=== PATIENT | male | born 1960 | race Caucasian/White ===

== ENCOUNTER 2021-04-26 14:25 | Inpatient (IN) | payer BC, SELFPAY ==
[2021-04-26] VITALS (38 sets, daily range): BP systolic 115–160; BP diastolic 65–97; PULSE 96–131; RESP 19–44; TEMP 36.9–37.7; O2SAT 82–98; BMI 38.2
--- NOTE | 2021-04-26 14:44 | XR_ITS ---
WS: [id number] Portable AP upright chest, 04/26/2021 Clinical Data: resp failure Comparison: None. Findings: Bilateral pulmonary opacities are present consistent with acute pneumonia. No nodules, mass es or effusions are seen. The pulmonary vascularity is probably not increased. The heart is slightly enlarged. Monitor leads are on the chest wall. XR/XR chest 1V portable [id number] Impression: 1. Bilateral pulmonary opacities consistent with acute pneumonia. 2. Cardiomegaly.
--- NOTE | 2021-04-26 14:53 | PM.HP ---
Providers/Chief Complaint Admitting Physician: Burton Renae MD Chief Complaint: icu 8, covid History of Present Illness Isrrael Tejada is a 60 year old male who was transferred from [facility] in [place] for COVID-19 pneumonia. History is somewhat difficult as patient is dyspneic and on BiPAP. From my understanding from the patient as well as historical records he has been ill for approximately 11 days. A Covid test was performed yesterday, and positive. From my understanding the patient was confused this morning upon awakening and was directed to the emergency department by his . At the outside emergency department he received dexamethasone 8 mg IV. I do not see any other treatment that was given other than supportive care/oxygen. Review of Systems General: Reports: ROS unobtainable due to medical condition (Unobtainable currently secondary to severe dyspnea.) Medications/Allergies Allergies Allergy/AdvReac Type Severity Reaction Status Date / Time No Known Drug Allergies Allergy Unknown Verified 04/26/21 14:38 PFSH Acute PFSH: Medical History (Updated 04/26/21 @ 15:23 by Burton Renae MD) Gout Hyperlipidemia Hypertension Hypothyroidism Obesity Surgical History (Updated 04/26/21 @ 15:05 by Burton Renae MD) History of rectal surgery Social History (Updated 04/26/21 @ 15:07 by Burton Renae MD) Smoking and tobacco status: never smoked Alcohol intake: current Alcohol intake frequency: 0-2 Drinks per Day Substance/Drug Use: never Supplemental PFSH Information: Family history not obtainable at this time secondary to the patient's severe dyspnea. Vitals/I&O/Wt Last Vital Signs Pulse 113 H 04/26/21 14:40 Pulse Ox 95 04/26/21 14:40 Weight last 48 hrs Weight 127.913 kg Physical Exam Narrative: EXAM NARRATIVE: General exam demonstrates a dyspneic white male on BiPAP who can answer a few questions but this seems to decrease his oxygen level HEENT: Atraumatic normocephalic. Oropharynx not examined is BiPAP on Neck is supple no lymphadenopathy or thyromegaly Cardiovascular tachycardic, no murmur Lungs scattered rales. No wheezing Abdomen is soft obese nontender with positive bowel sounds was deferred Extremities no cyanosis clubbing or edema, cap refill brisk Skin no rash Neuro no obvious focal deficits Data Other data: ABG at outside hospital demonstrated a pH of 7.419, PCO2 of 28, PO2 of 45 on a 15 L nonrebreather EKG at outside hospital demonstrated sinus tachycardia with a rate of approximately 110, left axis deviation, no significant ST elevation or depression White blood cell count 11.1, hemoglobin 15.6, platelet count 283 INR normal PTT 36.6 CRP elevated at 185 D-dimer slightly elevated at 0.83 Sodium was 135, potassium 3.6, chloride 96, bicarb 17, BUN 24, creatinine 1.6, glucose 179 LFTs within normal limits with the exception of AST of 76. ALT and bilirubin are normal Troponin is 23 with a 2-hour troponin of 24 Chest x-ray at outside institution demonstrated patchy bilateral atelectasis versus infiltrate I have verbally confirmed he has a positive Covid test at [facility] and that is going to be faxed to our institution. A&P Assessment and plan (1) Pneumonia due to COVID-19 virus: Initiate remdesivir Initiate dexamethasone 6 mg IV daily. He is already received 1 dose of 8 mg at outside hospital. Nebulized treatments through close circuit of BiPAP as needed BiPAP, with oxygen to try to maintain saturation over 88% Secondary to his acute worsening over the last 24 hours, markedly elevated inflammatory levels, and 11 days into illness will initiate Actemra. Discussed with pulmonary. N.p.o. for now secondary to severe respiratory compromise Hydration with 50 cc an hour of saline as he is NPO. Try to avoid fluid overload in this patient with high likelihood of ARDS. However, some fluid is needed secondary to his acute kidney injury. Pulmonary consultation secondary to high risk of decompensation requiring intubation Status: Acute (2) Acute respiratory failure with hypoxia: See above Status: Acute (3) Acute kidney injury: Avoid renal toxic medications Start IV fluids at 50 cc an hour Close monitoring of output Hold BRYAN inhibitor patient is on at home Status: Acute (4) Hypertension: Continue Norvasc, metoprolol. Hold BRYAN inhibitor. Status: Acute (5) Hypothyroidism: Check TSH. Continue thyroid hormone. Status: Acute (6) Hyperlipidemia: Continue statin Status: Acute (7) Gout: Continue allopurinol Status: Acute Additional A&P Information Full code Lovenox for DVT prophylaxis Attestations Medical Necessity Statement*: Will need greater than 2 midnight stay for evaluation and treatment of COVID-19 pneumonia. Time Spent in Patient Care: Greater than 35 minutes Critical Care Time: The high probability of a clinically significant, sudden or life threatening deterioration of the patient's [pulmonary, renal] system(s) required my full and direct attention, intervention and personal management. The critical care time is as shown. This time is in addition to time spent performing any reported procedures but includes the following: [x] Data and vital sign review and interpretation [x] Patient assessment, examination and intervention [x] Documentation [x] Medication orders and management Critical Care Time (min): 54 Coding Level of Care Code Acute Financial Recording Clerk for [facility] Fwd Diagnoses Pneumonia due to COVID-19 virus U07.1; J12.82 Acute respiratory failure with hypoxia J96.01 Acute kidney injury N17.9 Hypertension I10 Hypothyroidism E03.9 Hyperlipidemia E78.5 Gout M10.9
[2021-04-26] MEDS: enoxaparin 40 mg/0.4 mL Syringe SUBCUT (16:02)
[2021-04-26] MEDS: sodium chloride 0.9% 1,000 ML 50 ML IV (16:02)
[2021-04-26] MEDS: cefTRIAXone 1,000 MG in sodium chloride 0.9% (plus) 50 ML 100 MG IV (16:02)
[2021-04-26] MEDS: remdesivir 200 MG in sodium chloride 0.9% (100 ml) 100 ML 100 MG IV (16:03)
[2021-04-26] MEDS: ipratropium-albuterol 3 mL Neb INHALATION ×3 (16:53→23:45)
[2021-04-26 17:47] LABS: NT Pro B Type Natriuretic Pept 816 pg/mL (0-125); Procalcitonin 0.59 ng/mL (0-0.5); Thyroid Stimulating Hormone 1.25 uIU/mL (0.27-4.20)
[2021-04-26 17:58] LABS: Magnesium 2.1 mg/dL (1.7-2.3)
--- NOTE | 2021-04-26 19:08 | PC.NURSE ---
Recieved patient as a direct admit from [facility]. Oxygen level was in low 70's upon admission and patient was placed on bipap. Oxygen level quickly returned to mid 90's. A&O x 4. Temperature was 99.8. Medications given per orders.
[2021-04-26 19:16] LABS: Influenza A by IFA Negative (Negative); Influenza B by IFA Negative (Negative)
[2021-04-26 19:30] LABS: Estmated Average Glucose 148; Hemoglobin A1C 6.8 % (4.0-6.0)
[2021-04-26] MEDS: atorvastatin 40 mg Tablet 20 MG PO (21:13)
--- NOTE | 2021-04-26 21:18 | P.CONIM_ITS ---
Providers/Reason For Consult Consulting Physician/Specialty*: Stu Quarles MD/ Pulmonary Critical Care Reason for Consult*: Acute hypoxic respiratory failure secondary to ARDS due to COVID- 19 pneumonia Requesting Physician: Burton Renae MD Attending Physician: Burton Renae MD Primary Care Provider: Leo Smith History of Present Illness History of Present Illness Isrrael Tejada is a 60 year old male with past medical history of hypertension, hyperlipidemia, hypothyroidism, gout, obesity transferred from [facility] in [place] for COVID-19 pneumonia. Patient has been ill for approximately 11 days. A Covid test was performed yesterday, and positive and he was confused this morning upon awakening and was directed to the emergency department by his . Received dexamethasone 8 mg IV at outside hospital and he was transferred. Upon arrival pt has low grade temp 99.8 F, Tachycardic and tachypneic, saturating 92% on BIPAP 18/8 90% FIO2. Pro BNP 816; procalcitonin 0.59 , flu negative, blood cultures sent , chest x ray showed Bilateral pulmonary opacities consistent with acute pneumonia. ABG at outside hospital demonstrated a pH of 7.419, PCO2 of 28, PO2 of 45 on a 15 L nonrebreather. EKG at outside hospital demonstrated sinus tachycardia with a rate of approximately 110, left axis deviation, no significant ST elevation or depression. WBC 11.1, hemoglobin 15.6, platelet count 283; INR normal; PTT 36.6; CRP elevated at 185; D-dimer slightly elevated at 0.83 Sodium was 135, potassium 3.6, chloride 96, bicarb 17, BUN 24, creatinine 1.6, glucose 179; LFTs within normal limits with the exception of AST of 76. ALT and bilirubin are normal. Troponin is 23 with a 2-hour troponin of 24; Chest x-ray at outside institution demonstrated patchy bilateral atelectasis versus infiltrate. Pulmonary critical care consult requested for acute hypoxic respiratory failure secondary to ARDS due to COVID-19 pneumonia requiring 100% FiO2 on BiPAP Patient seen at bedside in ICU -Reported that he did not get time to get vaccinated due to his work schedule -Symptomatic for the last 11 days and tested positive yesterday and became more short of breath and confused today morning -On BiPAP 18/8 FiO2 90% saturating 92% and pulling out tidal volumes close to 1 L with a respiratory rate of 44 -Failed proning/70 proning/high flow oxygen and was immediately desaturating to low 80s -Adjusted BiPAP settings to 12/6 to tidal volumes close to 4 50-500 and started on Precedex to reduce anxiety and decrease while maintaining saturation greater than 90% -Labs and imaging reviewed and pertinent findings incorporated in assessment and plan Review of Systems General: Reports: 10 or more systems reviewed and unremarkable except in HPI and below and ROS unobtainable due to mental status Meds/Allergies Home Medications and Allergies Allergies Allergy/AdvReac Type Severity Reaction Status Date / Time No Known Drug Allergies Allergy Unknown Verified 04/26/21 14:38 Current Medications Current Medications Generic Name Dose Route Start Last Admin Trade Name Freq PRN Reason Stop Dose Admin Albuterol/Ipratropium 3 ml 04/26/21 14:44 04/26/21 20:46 Ipratropium-Albuterol 3 Ml Neb INHALATION 3 ml Q4H PRN Administration SHORTNESS OF BREATH Atorvastatin Calcium 20 mg 04/26/21 21:00 04/26/21 21:13 Atorvastatin 40 Mg Tablet PO 20 mg BEDTIME ROHIT Administration Enoxaparin Sodium 40 mg 04/26/21 16:00 04/26/21 16:02 Enoxaparin 40 Mg/0.4 Ml Syringe SUBCUT 40 mg Q24H ROHIT Administration Sodium Chloride 1,000 mls @ 50 mls/hr 04/26/21 14:45 04/26/21 16:02 Sodium Chloride 0.9% IV 50 mls/hr .Q20H ROHIT Administration Ceftriaxone Sodium 1,000 mg/ 50 mls @ 100 mls/hr 04/26/21 15:00 04/26/21 16 :35 Sodium Chloride IV Infused Q24H ROHIT Infusion Protocol PFSH Acute PFSH: Medical History Gout Hyperlipidemia Hypertension Hypothyroidism Obesity Surgical History History of rectal surgery Social History Smoking and tobacco status: never smoked Alcohol intake: current Alcohol intake frequency: 0-2 Drinks per Day Substance/Drug Use: never Vitals/I&O/Wt Last Vital Signs Temp 98.4 F 04/26/21 20:00 Pulse 103 H 04/26/21 21:05 Resp 32 H 04/26/21 20:59 BP 140/89 04/26/21 20:30 Pulse Ox 96 04/26/21 21:05 04/26/21 04/26/21 04/26/21 06:59 14:59 22:59 Intake Total 250 / 250 Output Total 1225 / 1225 Balance -975 / -975 Weight last 48 hrs Weight 282 lb Physical Exam Narrative: EXAM NARRATIVE: General: alert, in significant risk on BiPAP 10/09 and FiO2 100% HEENT: conj clear, EOMI, PERRL, mmm, Neck: supple, no meningismus Heme: no cervical LAP Pulmonary: Bilateral coarse crackles Cardiovascular: rrr, nl s1s2, no mrg Abdomen: soft, nt, nd, no r/g, bs+ Extremities: pulses +, no edema, no c/c : no CVA tenderness Skin: intact, no rash MSK: no back or neck pain Neurologic: grossly intact Urinary Catheter Management^: Cristina: Cath Placed During This Visit: yes Reason for Continuing Indwelling Catheter: Accurate Measurement of Urinary Output in Critically Ill Patients Urinary Catheter Date of Insertion: 04/26/21 Urinary Catheter Time of Insertion: 17:38 Data Labs: Other Labs: Laboratory Results Estimat Average Gl ucose 148 04/26/21 16:50 Hemoglobin A1c 6.8 % (4.0-6.0) H 04/26/21 16:50 Magnesium 2.1 mg/dL (1.7-2. 3) 04/26/21 16:50 NT-Pro-B Natriuret Pep 816 pg/mL (0-125) H 04/26/21 16:50 Procalcitonin 0.59 ng/mL (0-0.5 ) H 04/26/21 16:50 TSH 1.25 uIU/mL (0.27 -4.20) 04/26/21 16:50 Influenza Type A A g Negative (Negati ve) 04/26/21 17:00 Influenza Type B A g Negative (Negati ve) 04/26/21 17:00 Impressions Chest X-Ray 04/26/21 14:44 Impression: 1. Bilateral pulmonary opacities consistent with acute pneumonia. 2. Cardiomegaly. 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 Qualified Code(s): M1A.9XX0 - Chronic gout, unspecified, without tophus (tophi) (5) Hyperlipidemia: Status: Acute Qualifiers: Hyperlipidemia type: unspecified Qualified Code(s): E78.5 - Hyperlipidemia, unspecified (6) Hypothyroidism: Status: Acute Qualifiers: Hypothyroidism type: unspecified Qualified Code(s): E03.9 - Hypothyroidism, unspecified (7) Hypertension: Status: Acute Qualifiers: Hypertension type: unspecified Qualified Code(s): I10 - Essential (primary) hypertension (8) Acute kidney injury: Status: Acute Overall: 60-year-old male with past medical history of hypertension, hyperlipidemia, hypothyroidism, gout, obesity transferred from outside hospital for acute hypoxic respiratory failure secondary to ARDS due to COVID-19 pneumonia. #Acute hypoxic respiratory failure due to ARDS due to COVID-19 pneumonia #MARC based on labs from outside labs sent BUN/creatinine 24/1.6 - saturating 94% on BiPAP 12/6 FiO2 100% --At high risk for intubation -Patient is hyperventilating with rate 40-started on low-dose Precedex for anxiety and to comply with BiPAP -Did not tolerate high flow oxygen; or proning or semiproning- -temp 99.8F, WBC 11 K, pro-Tristin 0.59, BNP 816, -sent for bacterial antigen, MRSA, Bacterial cultures -started on remdesivir protocol for 5 days on 04/26/21 and dexamethasone 6 mg IV daily -Given 1 dose tocilizumab 04/26/21 -DuoNeb nebulizations every 6 hours and budesonide twice daily -Started on ceftriaxone & azithromycin 04/26/21 -monitor inflammatory markers every 48 hours; CRP 175 D-dimer 0.83 -BUN/creatinine 24/1.6 at outside facility; clinically appeared dehydrated; started NS at 50 mL's per hour; held BRYAN inhibitor his home medication - monitor input and output to keep even to slight net negative -LFTs within normal limits except AST 76-likely due to COVID-19 pneumonia- monitor -On Lipitor 20 p.o. daily for hyperlipidemia-hold if LFTs get worsen -On allopurinol for his gout -On amlodipine 10 mg daily, metoprolol 50 mg daily, for hypertension -On levothyroxine 50 MCG p.o. every morning for hypothyroidism -Sugars well controlled with scale coverage -Pantoprazole 40 mg daily for GI prophylaxis and history of GERD -On prophylactic dose of Lovenox for DVT prophylaxis -N.p.o. due to severe respiratory distress and impending respiratory failure requiring intubation Medical condition and management plan discussed with patient and he verbalized understanding and agreed with the plan. Recommendations conveyed to hospitalist covering the patient Consult Attestations Medical Necessity Statement: Acute hypoxic respiratory failure secondary to Acute respiratory distress syndrome due to COVID-19 pneumonia requiring high FiO2 on BiPAP. Needs close ICU monitoring for impending respiratory failure and possible intubation Time Spent in Patient Care: Greater than 35 minutes (>than 50% of time spent in counselling and/or direct pt care on unit) . Critical Care Time: The high probability of a clinically significant, sudden or life threatening deterioration of the patient's [respiratory] system(s) required my full and direct attention, intervention and personal management. The critical care time is as shown. This time is in addition to time spent performing any reported procedures but includes the following: [x] Data and vital sign review and interpretation [x] Patient assessment, examination and intervention [x] Documentation [x] Medication orders and management Critical Care Time (min): 45 Coding Level of Care Code New Pt Acute Patient Information Coordinator for g Fwd Patient Type New History Comprehensive Exam Comprehensive Medical Decision Making High Complexity Diagnoses Acute respiratory failure with hypoxia J96.01 ARDS (adult respiratory distress syndrome) J80 Pneumonia due to COVID-19 virus U07.1; J12.82 Gout M1A.9XX0 Gout site: unspecified site Gout etiology: unspecified cause 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
[2021-04-26] MEDS: dexmedetomidine 400 MCG in sodium chloride 0.9% (100 ml) 100 ML 9.98 MCG IV (23:37)
[2021-04-27] VITALS (85 sets, daily range): BP systolic 85–136; BP diastolic 54–79; PULSE 58–112; RESP 20–39; TEMP 36.4–36.9; O2SAT 86–98
[2021-04-27 01:34] LABS: ABG PCO2 36.4 mmHg (35-45); ABG PH Result 7.41 (7.35-7.45); Alveolar-Arterial Oxygen Gradi 79.5 mmHg (5-10); Arterial Blood Gas Hematocrit 45.2 % (42-52); Base Excess ABG -1.5 mmol/L (-2.0-2.0); Blood Gas Allen Test Pos; Blood Gas Operator Identificat HARKR; Blood Gas Sample Site Radial, right; Blood Gas Sample Type Arterial; Carboxyhemoglobin 0.4 %THgb (0.4-20.1); HCO3 ABG 22.8 mmol/L (22-26); HGB O2 Sat 87.1 % (95-100); Ionized Calcium Level - ABG 1.2 mmol/L (1.1-1.4); Methemoglobin 0.8 % (0.4-1.5); Oxygen Device BIPAP; Oxygen Saturation ABG 88.2; PO2 ABG 55.7 mmHg (80.0-100.0); Potassium Level - ABG 3.7 mmol/L (3.5-5.0); Total Hemoglobin 14.7 g/dL (14-18)
[2021-04-27] MEDS: ipratropium-albuterol 3 mL Neb INHALATION ×4 (04:50→20:28)
[2021-04-27 05:09] LABS: Basophils % 0.3 %; Hematocrit 42.2 % (42.0-52.0); Hemoglobin 14.1 g/dL (11.7-16.6); Lymphocytes # 1.2 10^3/uL (0.8-4.8); Lymphocytes % 13.1 %; Mean Corpuscular HGB Conc 33.4 g/dL (30.0-36.0); Mean Corpuscular Hemoglobin 28.7 pg (28.0-34.0); Mean Corpuscular Volume 85.8 fL (80-94); Mean Platelet Volume 10.7 fL (7.4-10.4); Monocytes # 0.7 10^3/uL (0.2-0.9); Monocytes % 7.1 %; Neutrophils # 7.16 10^3/uL (1.8-7.7); Nucleated Red Blood Cells % 0 %; Platelet Count 319 10^3/cmm (130-400); Red Blood Count 4.92 10^6/uL (4.1-5.3); Red Cell Distribution Width 13.1 % (12.1-15.1); White Blood Count 9.2 10^3/uL (4.0-10.0)
[2021-04-27 05:24] LABS: Alanine Aminotransferase 28 U/L (0-41); Albumin Level 2.9 g/dL (3.5-5.2); Alkaline Phosphatase 75 IU/L (40-130); Anion Gap 15.2 (5-19); Aspartate Amino Transferase 56 U/L (0-40); Blood Urea Nitrogen 26 mg/dL (6-20); Calcium 8.2 mg/dL (8.5-10.5); Carbon Dioxide 22 mmol/L (22-29); Chloride 105 mmol/L (98-107); Globulin 3.4 g/dL (1.3-4.6); Glomerular Filtration Rate 47.9 mL/min (90-130); Glucose 239 mg/dL (65-115); Magnesium 2.5 mg/dL (1.7-2.3); Osmolality Calculated 299 mOsm/kg (285-295); Potassium 4.2 mmol/L (3.5-5.1); Sodium 138 mmol/L (136-145); Total Bilirubin 0.4 mg/dL (0.15-1.2); Total Protein 6.3 g/dL (6.6-8.7)
[2021-04-27] MEDS: dexmedetomidine 400 MCG in sodium chloride 0.9% (100 ml) 100 ML 16.63 MCG IV ×3 (06:00→19:26)
--- NOTE | 2021-04-27 08:23 | PC.CHAP ---
Pastoral Care Encounter/Spiritual Assessment Type of Contact [] Declined manager oracle visit [] Patient/Family/Request visit [] Outpatient visit [] Follow-up visit [] Physician referral [] Code/Alert [x] Routine visit [] Staff referral [] Actively dying [] Patient sleeping [] Family support [] [] Out of room [] Palliative care [] [x] Receiving care in room [] Pre-surgical visit [] Trauma [] Long length of stay [x] ICU visit [x] Other: ventilator Relational/Emotional Strength [] Patient feels connected with others/family/visitors/staff [] Distress [] Loneliness/isolation [] Abandonment Spirituality of Patient [] Person of Kelly [] Attends Muslim of their Kelly [] Believes in Prayer [] Reads Bible or Protestant materials [] There are Spiritual issues to be addressed Turkey Picker Interventions [x] Prayer [] Active listening [] Non-anxious presence [] Spiritual/emotional support [] Crisis/trauma care [] Spiritual counseling [] Bereavement support [] Provided bereavement packet [] Provided Bible/devotional materials [] Provided toy/stuffed animal, coloring book to patient or family member [] Provided Communion [] Anointing/[place] [] Salvation [x] Completed spiritual assessment [] Other: Impact on Illness or Injury [] Angry [] Fearful [] Anxious [] Often cries [] Exhaustion [] Unable to work [] Unable to attend taoist [] Unable to walk/stand [] Unable to read [] Unable to drive [] Unable to eat/drink [] Unable to sleep [] Unable to be with family [] Patient intubated [] Other: Summary Time spent with patient
[2021-04-27] MEDS: budesonide 0.5 mg/2 mL Neb INHALATION ×2 (08:32→20:28)
[2021-04-27] MEDS: azithromycin 500 MG in sodium chloride 0.9% 250 ML 250 MG IV (08:36)
[2021-04-27] MEDS: dexamethasone 4 mg/mL INJ 6 MG IVP (08:37)
--- NOTE | 2021-04-27 10:05 | PC.PHAR ---
pt states he takes care of his own medications-pt states he hasnt started taking the dexamethasone filled on 04/25/21-pt states he only took 2 tabs of the azithromycin filled on 04/25/21
--- NOTE | 2021-04-27 10:28 | PM.PN ---
Subjective Subjective: Interval history: Isrrael was sedated with Precedex during my exam. He appeared comfortable. Medications: Reviewed: Yes Vitals/I&O/Wt Last Vital Signs Temp 98.4 F 04/27/21 08:00 Pulse 78 04/27/21 08:47 Resp 26 H 04/27/21 08:44 BP 106/74 04/27/21 08:00 Pulse Ox 94 04/27/21 08:46 04/26/21 04/27/21 04/27/21 22:59 06:59 14:59 Intake Total 250 / 250 93.681 / 343.681 250 / 250 Output Total 1550 / 1550 225 / 1775 Balance -1300 / -1300 -131.319 / -1431.319 250 / 250 Weight last 48 hrs Weight 124.239 kg Weight 127.913 kg Physical Exam Narrative: EXAM NARRATIVE: General exam comfortable appearing. Respiratory rate 20s. Heart rate 70s. On BiPAP settings reviewed. More out than in yesterday. Neck is supple no lymphadenopathy or thyromegaly Cardiovascular regular rate and rhythm without murmur Lungs scattered rales. No wheezing Abdomen is soft obese nontender with positive bowel sounds demonstrates Cristina Extremities no cyanosis clubbing or edema, cap refill brisk \ Urinary Catheter Management^: Cristina: Cath Placed During This Visit: yes Reason for Continuing Indwelling Catheter: Accurate Measurement of Urinary Output in Critically Ill Patients Urinary Catheter Date of Insertion: 04/26/21 Urinary Catheter Time of Insertion: 17:38 Data : 04/27/21 04:28 04/27/21 04:28 Micro: Microbiology 04/26/21 00:00 Bacterial Antigens - Final Urine,Clean Catch 04/26/21 16:45 Blood Culture - Preliminary Blood SPECIMEN COLLECTED 04/26/21 16:45 Blood Culture - Preliminary Blood SPECIMEN COLLECTED A&P Assessment and plan (1) Pneumonia due to COVID-19 virus: Continue remdesivir, dexamethasone Nebulized treatments through close circuit of BiPAP as needed. Pulmicort added as well Yesterday Actemra was initiated Planning on 5 days of remdesivir, possibly longer on dexamethasone depending upon clinical response Change diet to clear liquid consistent carb when he is able to take p.o. This may still be a while. Continue hydration at 50 cc an hour. Renal function has not worsened. With drips he is getting around 65 to 70 cc an hour. Pulmonary consultation appreciated secondary to high risk of decompensation requiring intubation MRSA PCR pending. Sputum culture if this can be obtained. On Rocephin, a Zithromax prophylactically. Noted procalcitonin was elevated on admission. Blood cultures were drawn on admission Influenza negative, urine bacterial antigens negative. Status: Acute (2) Acute respiratory failure with hypoxia: See above Status: Acute (3) Acute kidney injury: Avoid renal toxic medications Continue IV fluids at 50 cc an hour Close monitoring of output Hold BRYAN inhibitor patient is on at home Status: Acute (4) Hypertension: Hold Norvasc and BRYAN inhibitor. Blood pressure low with Precedex. Continue metoprolol if tolerated Status: Acute Qualifiers: Hypertension type: unspecified Qualified Code(s): I10 - Essential (primary) hypertension (5) Hypothyroidism: Check TSH. Continue thyroid hormone. Status: Acute Qualifiers: Hypothyroidism type: unspecified Qualified Code(s): E03.9 - Hypothyroidism, unspecified (6) Hyperlipidemia: Continue statin Status: Acute Qualifiers: Hyperlipidemia type: unspecified Qualified Code(s): E78.5 - Hyperlipidemia, unspecified (7) Gout: Continue allopurinol Status: Acute Qualifiers: Gout site: unspecified site Gout etiology: unspecified cause Chronicity: chronic Presence of tophus: without tophus Qualified Code(s): M1A.9XX0 - Chronic gout, unspecified, without tophus (tophi) Additional A&P Information Full code Lovenox for DVT prophylaxis Attestations Medical Necessity Statement*: Needs continued hospitalization in the ICU secondary to severe respiratory failure secondary to COVID-19 pneumonia. Critical Care Time: Critical Care Time (min): 34 Other Attestations: The high probability of a clinically significant, sudden or life threatening deterioration of the patient's [pulmonary, renal] system(s) required my full and direct attention, intervention and personal management. The critical care time is as shown. This time is in addition to time spent performing any reported procedures but includes the following: [x] Data and vital sign review and interpretation [x] Patient assessment, examination and intervention [x] Documentation [x] Medication orders and management Coding Level of Care Code Acute Mortar Mixer Operator for ananda [facility] Diagnoses Pneumonia due to COVID-19 virus U07.1; J12.82 Acute respiratory failure with hypoxia J96.01 Acute kidney injury N17.9 Hypertension I10 Hypertension type: unspecified Hypothyroidism E03.9 Hypothyroidism type: unspecified Hyperlipidemia E78.5 Hyperlipidemia type: unspecified Gout M1A.9XX0 Gout site: unspecified site Gout etiology: unspecified cause Chronicity: chronic Presence of tophus: without tophus
[2021-04-27] MEDS: sodium chloride 0.9% 1,000 ML 50 ML IV (11:00)
[2021-04-27 11:11] LABS: Glucose Point of Care 262 mg/dL (70-110)
--- NOTE | 2021-04-27 14:14 | P.PN_ITS ---
Subjective Subjective: Interval history: -Seen patient at bedside today morning -Appeared comfortable on Precedex gtt. and more compliant with BiPAP -Currently on 10/11 and FiO2 85% saturating 93% -Labs and imaging reviewed and pertinent findings incorporated in assessment and plan Medications: Reviewed: Yes Vitals/I&O/Wt Last Vital Signs Temp 98.4 F 04/27/21 12:00 Pulse 73 04/27/21 12:00 Resp 20 H 04/27/21 12:00 BP 111/70 04/27/21 12:00 Pulse Ox 96 04/27/21 12:00 04/26/21 04/27/21 04/27/21 22:59 06:59 14:59 Intake Total 250 / 250 93.681 / 857.312 6301.333 / 1302.333 Output Total 1550 / 1550 225 / 1775 Balance -1300 / -1300 -131.319 / -1343.316 6531.333 / 1302.333 Weight last 48 hrs Weight 273 lb 14.4 oz Weight 282 lb Physical Exam Narrative: EXAM NARRATIVE: General: alert, moderate respiratory distress on BiPAP 10/11 and FiO2 85% HEENT: conj clear, EOMI, PERRL, mmm, Neck: supple, no meningismus Heme: no cervical LAP Pulmonary: Bilateral coarse crackles Cardiovascular: rrr, nl s1s2, no mrg Abdomen: soft, nt, nd, no r/g, bs+ Extremities: pulses +, no edema, no c/c : no CVA tenderness Skin: intact, no rash MSK: no back or neck pain Neurologic: grossly intact Urinary Catheter Management^: Cristina: Cath Placed During This Visit: yes Reason for Continuing Indwelling Catheter: Accurate Measurement of Urinary Output in Critically Ill Patients Urinary Catheter Date of Insertion: 04/26/21 Urinary Catheter Time of Insertion: 17:38 Data : 04/27/21 04:28 04/27/21 04:28 Other Labs: Laboratory Results WBC 9.2 10^3/uL (4.0-10.0) 04/27/21 04:28 RBC 4.92 10^6/uL (4.1-5.3) 04/27/21 04:28 Hgb 14.1 g/dL (11.7-16.6) 04/27/21 04:28 Hct 42.2 % (42.0-52.0) 04/27/21 04:28 MCV 85.8 fL (80-94) 04/27/21 04:28 MCH 28.7 pg (28.0-34.0) 04/27/21 04:28 MCHC 33.4 g/dL (30.0-36.0) 04/27/21 04:28 RDW 13.1 % (12.1-15.1) 04/27/21 04:28 Plt Count 319 10^3/cmm (130-400) 04/27/21 04:28 MPV 10.7 fL (7.4-10.4) H 04/27/21 04:28 Neut % (Auto) 78.0 % 04/27/21 04:28 Lymph % (Auto) 13.1 % 04/27/21 04:28 Appling % (Auto) 7.1 % 04/27/21 04:28 Eos % (Auto) 0.0 % 04/27/21 04:28 Baso % (Auto) 0.3 % 04/27/21 04:28 Neut # (Auto) 7.16 10^3/uL (1.8-7.7) 04/27/21 04:28 Lymph # (Auto) 1.2 10^3/uL (0.8-4.8) 04/27/21 04:28 Appling # (Auto) 0.7 10^3/uL (0.2-0.9) 04/27/21 04:28 Eos # (Auto) 0.0 10^3/uL (0.0-0.8) 04/27/21 04:28 Baso # (Auto) 0.0 10^3/uL (0.0-0.1) 04/27/21 04:28 Nucleated RBC % (auto) 0 % 04/27/21 04:28 Nucleated RBCs # 0.0 /100WBC 04/27/21 04:28 Specimen Type Arterial 04/27/21 01:24 Sample Site Radial, right 04/27/21 01:24 ABG pH 7.41 (7.35-7.45) 04/27/21 01:24 ABG pCO2 36.4 mmHg (35-45) 04/27/21 01:24 ABG pO2 55.7 mmHg (80.0-100.0) L 04/27/21 01:24 ABG HCO3 22.8 mmol/L (22-26) 04/27/21 01:24 ABG O2 Saturation 88.2 04/27/21 01:24 ABG Base Excess -1.5 mmol/L (-2.0-2.0) 04/27/21 01:24 Cliff Test Pos 04/27/21 01:24 A-a O2 Gradient 79.5 mmHg (5-10) H 04/27/21 01:24 Hematocrit 45.2 % (42-52) 04/27/21 01:24 Hgb O2 Saturation 87.1 % (95-100) L 04/27/21 01:24 Carboxyhemoglobin 0.4 %THgb (0.4-20.1) 04/27/21 01:24 Methemoglobin 0.8 % (0.4-1.5) 04/27/21 01:24 Total Hemoglobin 14.7 g/dL (14-18) 04/27/21 01:24 Sodium 139.0 mmol/L (131-143) 04/27/21 01:24 Potassium 3.7 mmol/L (3.5-5.0) 04/27/21 01:24 Glucose 263.0 mg/dL (70-115) H 04/27/21 01:24 Ionized Calcium 1.2 mmol/L (1.1-1.4) 04/27/21 01:24 O2 Delivery Device Bipap 04/27/21 01:24 FiO2 100.0 % 04/27/21 01:24 Membership Coordinator ID Harkr 04/27/21 01:24 Sodium 138 mmol/L (136-145) 04/27/21 04:28 Potassium 4.2 mmol/L (3.5-5.1) 04/27/21 04:28 Chloride 105 mmol/L (98-107) 04/27/21 04:28 Carbon Dioxide 22 mmol/L (22-29) 04/27/21 04:28 Anion Gap 15.2 (5-19) 04/27/21 04:28 BUN 26 mg/dL (6-20) H 04/27/21 04:28 Creatinine 1.5 mg/dL (0.7-1.2) H 04/27/21 04:28 GFR Calculation 47.9 mL/min (90-130) L 04/27/21 04:28 Glucose 239 mg/dL (65-115) H 04/27/21 04:28 POC Glucose 262 mg/dL (70-110) H 04/27/21 10:55 Estimat Average Glucose 148 04/26/21 16:50 Hemoglobin A1c 6.8 % (4.0-6.0) H 04/26/21 16:50 Calculated Osmolality 299 mOsm/kg (285-295) H 04/27/21 04:28 Calcium 8.2 mg/dL (8.5-10.5) L 04/27/21 04:28 Magnesium 2.5 mg/dL (1.7-2.3) H 04/27/21 04:28 Total Bilirubin 0.4 mg/dL (0.15-1.2) 04/27/21 04:28 AST 56 U/L (0-40) H 04/27/21 04:28 ALT 28 U/L (0-41) 04/27/21 04:28 Alkaline Phosphatase 75 IU/L (40-130) 04/27/21 04:28 NT-Pro-B Natriuret Pep 816 pg/mL (0-125) H 04/26/21 16:50 Total Protein 6.3 g/dL (6.6-8.7) L 04/27/21 04:28 Albumin 2.9 g/dL (3.5-5.2) L 04/27/21 04:28 Globulin 3.4 g/dL (1.3-4.6) 04/27/21 04:28 Procalcitonin 0.59 ng/mL (0-0.5) H 04/26/21 16:50 TSH 1.25 uIU/mL (0.27-4.20) 04/26/21 16:50 Influenza Type A Ag Negative (Negative) 04/26/21 17:00 Influenza Type B Ag Negative (Negative) 04/26/21 17:00 Impressions Chest X-Ray 04/26/21 14:44 Impression: 1. Bilateral pulmonary opacities consistent with acute pneumonia. 2. Cardiomegaly. Micro: Microbiology 04/26/21 17:00 MRSA Culture - Final Nose 04/26/21 00:00 Bacterial Antigens - Final Urine,Clean Catch 04/26/21 16:45 Blood Culture - Preliminary Blood SPECIMEN COLLECTED 04/26/21 16:45 Blood Culture - Preliminary Blood SPECIMEN COLLECTED A&P Assessment and plan (1) Acute respiratory failure with hypoxia: Status: Acute (2) ARDS (adult respiratory distress syndrome): Status: Acute (3) Pneumonia due to COVID-19 virus: Status: Acute (4) Gout: Status: Acute Qualifiers: Gout site: unspecified site Gout etiology: unspecified cause Chronicity: chronic Presence of tophus: without tophus Qualified Code(s): M1A.9XX0 - Chronic gout, unspecified, without tophus (tophi) (5) Hyperlipidemia: Status: Acute Qualifiers: Hyperlipidemia type: unspecified Qualified Code(s): E78.5 - Hyperlipidemia, unspecified (6) Hypothyroidism: Status: Acute Qualifiers: Hypothyroidism type: unspecified Qualified Code(s): E03.9 - Hypothyroidism, unspecified (7) Hypertension: Status: Acute Qualifiers: Hypertension type: unspecified Qualified Code(s): I10 - Essential (primary) hypertension (8) Acute kidney injury: Status: Acute Overall: 60-year-old male with past medical history of hypertension, hyperlipidemia, hypothyroidism, gout, obesity transferred from outside hospital for acute hypo xic respiratory failure secondary to ARDS due to COVID-19 pneumonia. #Acute hypoxic respiratory failure due to ARDS due to COVID-19 pneumonia #MARC based on labs from outside labs sent BUN/creatinine 24/.6 - saturating 94% on BiPAP 12/8 FiO2 85% --At high risk for intubation -ABG 7.4 /55/20 2/88% on FiO2 100% BiPAP 12/8 today morning -on low-dose Precedex for anxiety and to comply with BiPAP -Did not tolerate high flow oxygen; or proning or semiproning- -afebrile, WBC 9.2 K, pro-Tristin 0.59, BNP 816, -Negative bacterial antigen, MRSA undetected, so far bacterial cultures negative -on remdesivir protocol for 5 days on 04/26/21 and dexamethasone 6 mg IV daily -Given 1 dose tocilizumab 04/26/21 -DuoNeb nebulizations every 6 hours and budesonide twice daily -Started on ceftriaxone & azithromycin 04/26/21 -monitor inflammatory markers every 48 hours; CRP 175 D-dimer 0.83 -BUN/creatinine 26/1.5 at outside facility; clinically appeared dehydrated; started NS at 50 mL's per hour; -I/O/N since admission: 343/1.7 L / -1.4 L Electrolytes within normal limits -held BRYAN inhibitor his home medication - monitor input and output to keep even to slight net negative -LFTs within normal limits except AST 56-likely due to COVID-19 pneumonia- monitor -On Lipitor 20 p.o. daily for hyperlipidemia-hold if LFTs get worsen -On allopurinol for his gout -On amlodipine 10 mg daily, metoprolol 50 mg daily, for hypertension -On levothyroxine 50 MCG p.o. every morning for hypothyroidism -Sugars controlled with scale coverage -Pantoprazole 40 mg daily for GI prophylaxis and history of GERD -On prophylactic dose of Lovenox for DVT prophylaxis -N.p.o. due to severe respiratory distress and impending respiratory failure requiring intubation Medical condition and management plan discussed with patient and he verbalized understanding and agreed with the plan. Recommendations conveyed to hospitalist covering the patient Attestations Medical Necessity Statement*: Needs continued hospitalization in the ICU secondary to severe respiratory failure secondary to COVID-19 pneumonia. Critical Care Time: Critical Care Time (min): 34 Other Attestations: The high probability of a clinically significant, sudden or life threatening deterioration of the patient's [pulmonary, renal] system(s) required my full and direct attention, intervention and personal management. The critical care time is as shown. 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
[2021-04-27] MEDS: cefTRIAXone 1,000 MG in sodium chloride 0.9% (plus) 50 ML 100 MG IV (16:38)
[2021-04-27] MEDS: enoxaparin 40 mg/0.4 mL Syringe SUBCUT (16:38)
[2021-04-27 17:00] LABS: Glucose Point of Care 266 mg/dL (70-110)
[2021-04-27] MEDS: remdesivir 100 MG in sodium chloride 0.9% (100 ml) 100 ML IV (17:58)
--- NOTE | 2021-04-27 18:18 | PC.NURSE ---
Shift summary Pt has done fairly well throughout the day. RT was able to come down on the FIo2. The pt is staying calm and O2 sats steady at 90-92%. Precedex is at 0.5. Denies pain. Family has been updated.
[2021-04-27] MEDS: atorvastatin 40 mg Tablet 20 MG PO (20:57)
[2021-04-27 21:12] LABS: Glucose Point of Care 243 mg/dL (70-110)
[2021-04-28] VITALS (108 sets, daily range): BP systolic 111–149; BP diastolic 68–92; PULSE 57–106; RESP 22–43; TEMP 36.5–37.1; O2SAT 86–95; BMI 37.0
[2021-04-28] MEDS: dexmedetomidine 400 MCG in sodium chloride 0.9% (100 ml) 100 ML 16.63 MCG IV ×4 (02:03→21:20)
[2021-04-28] MEDS: ipratropium-albuterol 3 mL Neb INHALATION ×4 (02:54→20:29)
[2021-04-28 05:02] LABS: Basophils % 0.3 %; Hematocrit 47.2 % (42.0-52.0); Lymphocytes # 1.2 10^3/uL (0.8-4.8); Lymphocytes % 7.6 %; Mean Corpuscular HGB Conc 31.8 g/dL (30.0-36.0); Mean Corpuscular Hemoglobin 27.9 pg (28.0-34.0); Mean Corpuscular Volume 87.7 fL (80-94); Mean Platelet Volume 10.3 fL (7.4-10.4); Monocytes # 1.1 10^3/uL (0.2-0.9); Nucleated Red Blood Cells % 0 %; Platelet Count 318 10^3/cmm (130-400); Red Blood Count 5.38 10^6/uL (4.1-5.3); Red Cell Distribution Width 13.4 % (12.1-15.1); White Blood Count 15.1 10^3/uL (4.0-10.0)
[2021-04-28 05:14] LABS: Alanine Aminotransferase 28 U/L (0-41); Albumin Level 2.9 g/dL (3.5-5.2); Alkaline Phosphatase 101 IU/L (40-130); Aspartate Amino Transferase 47 U/L (0-40); Blood Urea Nitrogen 32 mg/dL (6-20); C Reactive Protein 74.1 mg/L (0.0-4.9); Calcium 8.5 mg/dL (8.5-10.5); Carbon Dioxide 21 mmol/L (22-29); Chloride 108 mmol/L (98-107); Globulin 3.4 g/dL (1.3-4.6); Glucose 199 mg/dL (65-115); Magnesium 2.8 mg/dL (1.7-2.3); Osmolality Calculated 308 mOsm/kg (285-295); Sodium 143 mmol/L (136-145); Total Bilirubin 0.4 mg/dL (0.15-1.2); Total Protein 6.3 g/dL (6.6-8.7)
[2021-04-28 05:18] LABS: D Dimer 11.86 ug/mIFEU (0-0.59)
[2021-04-28] MEDS: sodium chloride 0.9% 1,000 ML 50 ML IV (06:31)
[2021-04-28] MEDS: levothyroxine 50 mcg Tablet PO (06:32)
--- NOTE | 2021-04-28 07:33 | USCV_ITS ---
Isrrael Tejada Age: 60 Gender: M : 1960 Exam Date: 04/28/2021 14:18 Ordering Phys: Burton Renae MD Technologist: Wesley Vásquez Exam Location: [facility] – [place]_ Indication: ELEVATED DIMER, HYPOXIA PROCEDURES: The venous duplex Doppler examination of both lower extremities was performed in the standard fashion. In addition, the posterior tibial and peroneal trunk were evaluated. Bilaterally, the common femoral, superficial femoral, profunda femoral, popliteal, posterior tibial, greater saphenous veins, and the peroneal trunk were identified and interrogated in the standard fashion. FINDINGS: Normal 2-D Doppler and augmentation and compressibility throughout the lower extremity venous structures. Additional imaging through the proximal calf veins also reveals no thrombus. Limited evaluation of the greater saphenous vein is patent with no thrombus.. CONCLUSIONS No DVT bilateral lower extremities. Dr. Salena Bill DO (Electronically Signed) Final Date: 28 April 2021 15:50 S
[2021-04-28] MEDS: metoprolol succinate ER (24 HR) 50 mg Tablet PO (08:12)
[2021-04-28] MEDS: dexamethasone 4 mg/mL INJ 6 MG IVP (08:12)
[2021-04-28] MEDS: enoxaparin 120 mg/0.8 mL Syringe SUBCUT ×2 (08:12→18:07)
[2021-04-28] MEDS: azithromycin 500 MG in sodium chloride 0.9% 250 ML 250 MG IV (08:13)
[2021-04-28] MEDS: pantoprazole DR 40 mg Tablet PO (08:13)
[2021-04-28] MEDS: allopurinol 100 mg Tablet PO (08:13)
[2021-04-28] MEDS: budesonide 0.5 mg/2 mL Neb INHALATION ×2 (08:47→20:29)
[2021-04-28 11:36] LABS: Glucose Point of Care 191 mg/dL (70-110)
[2021-04-28 11:36] LABS: Glucose Point of Care 211 mg/dL (70-110)
--- NOTE | 2021-04-28 12:25 | PM.PN ---
Subjective Subjective: Interval history: Isrrael reports no complaints this morning. He felt somewhat better. No chest discomfort. Medications: Reviewed: Yes Vitals/I&O/Wt Last Vital Signs Temp 98.1 F 04/28/21 10:00 Pulse 71 04/28/21 12:06 Resp 34 H 04/28/21 10:00 BP 125/79 04/28/21 10:00 Pulse Ox 92 04/28/21 12:06 04/27/21 04/28/21 04/28/21 22:59 06:59 14:59 Intake Total 239.525 / 1865.220 7410.833 / 2621.691 512.333 / 512.333 Output Total 400 / 400 750 / 1150 100 / 100 Balance -160.475 / 1141.858 329.833 / 1471.691 412.333 / 412.333 Weight last 48 hrs Weight 123.916 kg Weight 124.239 kg Weight 127.913 kg Physical Exam Narrative: EXAM NARRATIVE: General exam comfortable appearing. Respiratory rate 20s. Heart rate 70s. On BiPAP settings reviewed. More out than in yesterday. Neck is supple no lymphadenopathy or thyromegaly Cardiovascular regular rate and rhythm without murmur Lungs scattered rales. No wheezing Abdomen is soft obese nontender with positive bowel sounds demonstrates Cristina Extremities no cyanosis clubbing or edema, cap refill brisk \ Urinary Catheter Management^: Cristina: Cath Placed During This Visit: yes Reason for Continuing Indwelling Catheter: Accurate Measurement of Urinary Output in Critically Ill Patients Urinary Catheter Date of Insertion: 04/26/21 Urinary Catheter Time of Insertion: 17:38 Data : 04/28/21 04:23 04/28/21 04:23 Micro: Microbiology 04/26/21 00:00 Urine Culture - Preliminary Urine Catheterized 04/26/21 16:45 Blood Culture - Preliminary Blood NEGATIVE TO DATE 04/26/21 16:45 Blood Culture - Preliminary Blood NEGATIVE TO DATE 04/26/21 17:00 MRSA Culture - Final Nose 04/26/21 00:00 Bacterial Antigens - Final Urine,Clean Catch A&P Assessment and plan (1) Pneumonia due to COVID-19 virus: Continue remdesivir, dexamethasone Nebulized treatments through close circuit of BiPAP as needed. Pulmicort added as well Received Actemra April 26 Planning on 5 days of remdesivir total Clear liquid diet when able Continue fluids at 40 cc an hour Pulmonary consultation appreciated secondary to high risk of decompensation requiring intubation. Consult appreciated MRSA PCR negative On Rocephin, a Zithromax prophylactically. Noted procalcitonin was elevated on admission. Blood cultures were drawn on admission. Negative to date Influenza negative, urine bacterial antigens negative. Now down to approximately 75% FiO2 per BiPAP Inflammatory markers every other day D-dimer has markedly increased. Start full dose anticoagulation. CTA when able. Check venous duplex. CRP has decreased. Status: Acute (2) Acute respiratory failure with hypoxia: See above Status: Acute (3) Acute kidney injury: Avoid renal toxic medications Continue IV fluids at 40 cc an hour Close monitoring of output Creatinine has improved Hold BRYAN inhibitor patient is on at home Status: Acute (4) Hypertension: Hold Norvasc and BRYAN inhibitor. Blood pressure low with Precedex. Continue metoprolol as tolerated Status: Acute Qualifiers: Hypertension type: unspecified Qualified Code(s): I10 - Essential (primary) hypertension (5) Hypothyroidism: Check TSH. Continue thyroid hormone. Status: Acute Qualifiers: Hypothyroidism type: unspecified Qualified Code(s): E03.9 - Hypothyroidism, unspecified (6) Hyperlipidemia: Continue statin Status: Acute Qualifiers: Hyperlipidemia type: unspecified Qualified Code(s): E78.5 - Hyperlipidemia, unspecified (7) Gout: Continue allopurinol Status: Acute Qualifiers: Chronicity: chronic Gout etiology: unspecified cause Gout site: unspecified site Presence of tophus: without tophus Qualified Code(s): M1A.9XX0 - Chronic gout, unspecified, without tophus (tophi) Additional A&P Information Full code Lovenox for DVT prophylaxis Attestations Medical Necessity Statement*: Needs continued hospitalization in the ICU secondary to COVID-19 pneumonia requiring high amount of pulmonary support. Critical Care Time: The high probability of a clinically significant, sudden or life threatening deterioration of the patient's [pulmonary, renal] system(s) required my full and direct attention, intervention and personal management. The critical care time is as shown. 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
--- NOTE | 2021-04-28 13:56 | PM.PN ---
Subjective Subjective: Interval history: -Patient seen at bedside today morning -Currently on BiPAP 12/8 and 75% FiO2 -Appeared comfortable on Precedex 0.5 mg/h -Labs and imaging reviewed and pertinent findings incorporated in the assessment and plan Medications: Reviewed: Yes Vitals/I&O/Wt Last Vital Signs Temp 98.1 F 04/28/21 12:00 Pulse 71 04/28/21 12:06 Resp 34 H 04/28/21 12:00 BP 125/79 04/28/21 12:00 Pulse Ox 92 04/28/21 12:06 04/27/21 04/28/21 04/28/21 22:59 06:59 14:59 Intake Total 239.525 / 4915.304 4054.833 / 2621.691 512.333 / 512.333 Output Total 400 / 400 750 / 1150 225 / 225 Balance -160.475 / 1141.858 329.833 / 1471.691 287.333 / 287.333 Weight last 48 hrs Weight 273 lb 3 oz Weight 273 lb 14.4 oz Weight 282 lb Physical Exam Narrative: EXAM NARRATIVE: General: alert, moderate respiratory distress on BiPAP 12/8 and FiO2 85% HEENT: conj clear, EOMI, PERRL, mmm, Neck: supple, no meningismus Heme: no cervical LAP Pulmonary: Bilateral coarse crackles Cardiovascular: rrr, nl s1s2, no mrg Abdomen: soft, nt, nd, no r/g, bs+ Extremities: pulses +, no edema, no c/c : no CVA tenderness Skin: intact, no rash MSK: no back or neck pain Neurologic: grossly intact Urinary Catheter Management^: Cristina: Cath Placed During This Visit: yes Reason for Continuing Indwelling Catheter: Accurate Measurement of Urinary Output in Critically Ill Patients Urinary Catheter Date of Insertion: 04/26/21 Urinary Catheter Time of Insertion: 17:38 Data : 04/28/21 04:23 04/28/21 04:23 Other Labs: Laboratory Results WBC 15.1 10^3/uL (4.0-10.0) H 04/28/21 04:23 RBC 5.38 10^6/uL (4.1-5.3) H 04/28/21 04:23 Hgb 15.0 g/dL (11.7-16.6) 04/28/21 04:23 Hct 47.2 % (42.0-52.0) 04/28/21 04:23 MCV 87.7 fL (80-94) 04/28/21 04:23 MCH 27.9 pg (28.0-34.0) L 04/28/21 04:23 MCHC 31.8 g/dL (30.0-36.0) 04/28/21 04:23 RDW 13.4 % (12.1-15.1) 04/28/21 04:23 Plt Count 318 10^3/cmm (130-400) 04/28/21 04:23 MPV 10.3 fL (7.4-10.4) 04/28/21 04:23 Neut % (Auto) 83.0 % 04/28/21 04:23 Lymph % (Auto) 7.6 % 04/28/21 04:23 Hardeman % (Auto) 7.0 % 04/28/21 04:23 Eos % (Auto) 0.0 % 04/28/21 04:23 Baso % (Auto) 0.3 % 04/28/21 04:23 Neut # (Auto) 12.50 10^3/uL (1.8-7.7) H 04/28/21 04:23 Lymph # (Auto) 1.2 10^3/uL (0.8-4.8) 04/28/21 04:23 Hardeman # (Auto) 1.1 10^3/uL (0.2-0.9) H 04/28/21 04:23 Eos # (Auto) 0.0 10^3/uL (0.0-0.8) 04/28/21 04:23 Baso # (Auto) 0.0 10^3/uL (0.0-0.1) 04/28/21 04:23 Nucleated RBC % (auto) 0 % 04/28/21 04:23 Nucleated RBCs # 0.0 /100WBC 04/28/21 04:23 D-Dimer 11.86 ug/mIFEU (0-0.59) H 04/28/21 04:23 Specimen Type Arterial 04/27/21 01:24 Sample Site Radial, right 04/27/21 01:24 ABG pH 7.41 (7.35-7.45) 04/27/21 01:24 ABG pCO2 36.4 mmHg (35-45) 04/27/21 01:24 ABG pO2 55.7 mmHg (80.0-100.0) L 04/27/21 01:24 ABG HCO3 22.8 mmol/L (22-26) 04/27/21 01:24 ABG O2 Saturation 88.2 04/27/21 01:24 ABG Base Excess -1.5 mmol/L (-2.0-2.0) 04/27/21 01:24 Cliff Test Pos 04/27/21 01:24 A-a O2 Gradient 79.5 mmHg (5-10) H 04/27/21 01:24 Hematocrit 45.2 % (42-52) 04/27/21 01:24 Hgb O2 Saturation 87.1 % (95-100) L 04/27/21 01:24 Carboxyhemoglobin 0.4 %THgb (0.4-20.1) 04/27/21 01:24 Methemoglobin 0.8 % (0.4-1.5) 04/27/21 01:24 Total Hemoglobin 14.7 g/dL (14-18) 04/27/21 01:24 Sodium 139.0 mmol/L (131-143) 04/27/21 01:24 Potassium 3.7 mmol/L (3.5-5.0) 04/27/21 01:24 Glucose 263.0 mg/dL (70-115) H 04/27/21 01:24 Ionized Calcium 1.2 mmol/L (1.1-1.4) 04/27/21 01:24 O2 Delivery Device Bipap 04/27/21 01:24 FiO2 100.0 % 04/27/21 01:24 Chief Crew Scheduler ID Harkr 04/27/21 01:24 Sodium 143 mmol/L (136-145) 04/28/21 04:23 Potassium 4.0 mmol/L (3.5-5.1) 04/28/21 04:23 Chloride 108 mmol/L (98-107) H 04/28/21 04:23 Carbon Dioxide 21 mmol/L (22-29) L 04/28/21 04:23 Anion Gap 18.0 (5-19) 04/28/21 04:23 BUN 32 mg/dL (6-20) H 04/28/21 04:23 Creatinine 1.2 mg/dL (0.7-1.2) 04/28/21 04:23 GFR Calculation 62.0 mL/min (90-130) L 04/28/21 04:23 Glucose 199 mg/dL (65-115) H 04/28/21 04:23 POC Glucose 191 mg/dL (70-110) H 04/28/21 11:22 Estimat Average Glucose 148 04/26/21 16:50 Hemoglobin A1c 6.8 % (4.0-6.0) H 04/26/21 16:50 Calculated Osmolality 308 mOsm/kg (285-295) H 04/28/21 04:23 Calcium 8.5 mg/dL (8.5-10.5) 04/28/21 04:23 Magnesium 2.8 mg/dL (1.7-2.3) H 04/28/21 04:23 Total Bilirubin 0.4 mg/dL (0.15-1.2) 04/28/21 04:23 AST 47 U/L (0-40) H 04/28/21 04:23 ALT 28 U/L (0-41) 04/28/21 04:23 Alkaline Phosphatase 101 IU/L (40-130) 04/28/21 04:23 C-Reactive Protein 74.1 mg/L (0.0-4.9) H 04/28/21 04:23 NT-Pro-B Natriuret Pep 816 pg/mL (0-125) H 04/26/21 16:50 Total Protein 6.3 g/dL (6.6-8.7) L 04/28/21 04:23 Albumin 2.9 g/dL (3.5-5.2) L 04/28/21 04:23 Globulin 3.4 g/dL (1.3-4.6) 04/28/21 04:23 Procalcitonin 0.59 ng/mL (0-0.5) H 04/26/21 16:50 TSH 1.25 uIU/mL (0.27-4.20) 04/26/21 16:50 Influenza Type A Ag Negative (Negative) 04/26/21 17:00 Influenza Type B Ag Negative (Negative) 04/26/21 17:00 Impressions Chest X-Ray 04/26/21 14:44 Impression: 1. Bilateral pulmonary opacities consistent with acute pneumonia. 2. Cardiomegaly. Micro: Microbiology 04/26/21 00:00 Urine Culture - Preliminary Urine Catheterized 04/26/21 16:45 Blood Culture - Preliminary Blood NEGATIVE TO DATE 04/26/21 16:45 Blood Culture - Preliminary Blood NEGATIVE TO DATE 04/26/21 17:00 MRSA Culture - Final Nose A&P Assessment and plan (1) Acute respiratory failure with hypoxia: Status: Acute (2) ARDS (adult respiratory distress syndrome): Status: Acute (3) Pneumonia due to COVID-19 virus: Status: Acute (4) Gout: Status: Acute Qualifiers: Gout site: unspecified site Gout etiology: unspecified cause Chronicity: chronic Presence of tophus: without tophus Qualified Code(s): M1A.9XX0 - Chronic gout, unspecified, without tophus (tophi) (5) Hyperlipidemia: Status: Acute Qualifiers: Hyperlipidemia type: unspecified Qualified Code(s): E78.5 - Hyperlipidemia, unspecified (6) Hypothyroidism: Status: Acute Qualifiers: Hypothyroidism type: unspecified Qualified Code(s): E03.9 - Hypothyroidism, unspecified (7) Hypertension: Status: Acute Qualifiers: Hypertension type: unspecified Qualified Code(s): I10 - Essential (primary) hypertension (8) Acute kidney injury: Status: Acute Overall: 60-year-old male with past medical history of hypertension, hyperlipidemia, hypothyroidism, gout, obesity transferred from outside hospital for acute hypoxic respiratory failure secondary to ARDS due to COVID-19 pneumonia. #Acute hypoxic respiratory failure due to ARDS due to COVID-19 pneumonia #MARC based on labs from outside labs sent BUN/creatinine 27/11.6 - saturating 90% on BiPAP 10/11 FiO2 75% -Significantly elevated D-dimer - Ordered CT chest with contrast to rule out PE and bilateral lower extremity venous Doppler to rule out DVT, increased Lovenox to therapeutic dose -Depending on patient's stability patient will go for CT -on low-dose Precedex for anxiety and to comply with BiPAP -Once FiO2 is down to 60% we will gradually wean off BiPAP to high flow nasal cannula -Did not tolerate proning or semiproning- -afebrile, WBC 15 K, pro-Tristin 0.59, BNP 816, -Negative bacterial antigen, MRSA undetected, so far bacterial cultures negative -on remdesivir protocol for 5 days on 04/26/21 and dexamethasone 6 mg IV daily -Given 1 dose tocilizumab 04/26/21 -DuoNeb nebulizations every 6 hours and budesonide twice daily -Started on ceftriaxone & azithromycin 04/26/21 -monitor inflammatory markers every 48 hours; CRP 175 D-dimer 0.83 -BUN/creatinine 26/1.5 at outside facility; clinically appeared dehydrated; - on NS at 50 mL's per hour;Input output net even since admission, improving creatinine, electrolytes within normal limits -Closely monitor SANNA's and renal parameters -held BRYAN inhibitor his home medication -LFTs within normal limits except AST 47-likely due to COVID-19 pneumonia-monitor -On Lipitor 20 p.o. daily for hyperlipidemia-hold if LFTs get worsen -On allopurinol for his gout -On amlodipine 10 mg daily, metoprolol 50 mg daily, for hypertension -On levothyroxine 50 MCG p.o. every morning for hypothyroidism -Sugars controlled with scale coverage -Pantoprazole 40 mg daily for GI prophylaxis and history of GERD -On therapeutic dose of Lovenox for significantly elevated D-dimer, CT chest to rule out PE and bilateral lower extremities Doppler to rule out DVT -N.p.o. due to severe respiratory distress and impending respiratory failure requiring intubation; feeding as tolerated Medical condition and management plan discussed with patient and he verbalized understanding and agreed with the plan. Recommendations conveyed to hospitalist covering the patient Attestations Medical Necessity Statement*: Needs continued hospitalization in the ICU secondary to severe respiratory failure secondary to COVID-19 pneumonia. Critical Care Time: Critical Care Time (min): 45 Other Attestations: The high probability of a clinically significant, sudden or life threatening deterioration of the patient's [pulmonary, renal] system(s) required my full and direct attention, intervention and personal management. The critical care time is as shown. 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
[2021-04-28] MEDS: cefTRIAXone 1,000 MG in sodium chloride 0.9% (plus) 50 ML 100 MG IV (17:32)
[2021-04-28] MEDS: remdesivir 100 MG in sodium chloride 0.9% (100 ml) 100 ML IV (18:06)
[2021-04-28] MEDS: atorvastatin 40 mg Tablet 20 MG PO (19:49)
[2021-04-28 20:35] LABS: Glucose Point of Care 184 mg/dL (70-110)
[2021-04-29] VITALS (74 sets, daily range): BP systolic 125–165; BP diastolic 80–112; PULSE 63–128; RESP 10–41; TEMP 36.2–37.1; O2SAT 81–96; BMI 36.8
[2021-04-29] MEDS: ipratropium-albuterol 3 mL Neb INHALATION ×4 (03:19→21:02)
[2021-04-29] MEDS: dexmedetomidine 400 MCG in sodium chloride 0.9% (100 ml) 100 ML 16.63 MCG IV ×2 (04:01→09:36)
[2021-04-29] MEDS: levothyroxine 50 mcg Tablet PO (06:46)
[2021-04-29] MEDS: enoxaparin 120 mg/0.8 mL Syringe SUBCUT ×2 (06:48→18:16)
[2021-04-29] MEDS: sodium chloride 0.9% 1,000 ML 40 ML IV (06:48)
[2021-04-29 08:15] LABS: Glucose Point of Care 198 mg/dL (70-110)
[2021-04-29 08:15] LABS: Glucose Point of Care 199 mg/dL (70-110)
[2021-04-29] MEDS: budesonide 0.5 mg/2 mL Neb INHALATION ×2 (08:38→21:02)
[2021-04-29] MEDS: dexamethasone 4 mg/mL INJ 6 MG IVP (09:01)
[2021-04-29] MEDS: azithromycin 500 MG in sodium chloride 0.9% 250 ML 250 MG IV (09:01)
[2021-04-29] MEDS: metoprolol succinate ER (24 HR) 50 mg Tablet PO (09:02)
[2021-04-29] MEDS: pantoprazole DR 40 mg Tablet PO (09:02)
[2021-04-29] MEDS: allopurinol 100 mg Tablet PO (09:02)
[2021-04-29 09:22] LABS: Basophils # 0.1 10^3/uL (0.0-0.1); Basophils % 0.4 %; Hemoglobin 15.2 g/dL (11.7-16.6); Lymphocytes # 1.3 10^3/uL (0.8-4.8); Lymphocytes % 8.7 %; Mean Corpuscular HGB Conc 32.3 g/dL (30.0-36.0); Mean Corpuscular Hemoglobin 28.4 pg (28.0-34.0); Mean Corpuscular Volume 87.9 fL (80-94); Mean Platelet Volume 10.1 fL (7.4-10.4); Monocytes # 1.2 10^3/uL (0.2-0.9); Monocytes % 7.8 %; Neutrophils # 12.13 10^3/uL (1.8-7.7); Neutrophils % 80.6 %; Nucleated Red Blood Cells # 0.1 /100WBC; Nucleated Red Blood Cells % 0.5 %; Platelet Count 341 10^3/cmm (130-400); Red Blood Count 5.35 10^6/uL (4.1-5.3); Red Cell Distribution Width 13.8 % (12.1-15.1); White Blood Count 15.1 10^3/uL (4.0-10.0)
[2021-04-29 09:45] LABS: Alanine Aminotransferase 30 U/L (0-41); Albumin Level 2.9 g/dL (3.5-5.2); Alkaline Phosphatase 165 IU/L (40-130); Aspartate Amino Transferase 46 U/L (0-40); Blood Urea Nitrogen 34 mg/dL (6-20); Carbon Dioxide 22 mmol/L (22-29); Chloride 112 mmol/L (98-107); Globulin 3.3 g/dL (1.3-4.6); Glomerular Filtration Rate 76.5 mL/min (90-130); Glucose 196 mg/dL (65-115); Osmolality Calculated 311 mOsm/kg (285-295); Sodium 144 mmol/L (136-145); Total Bilirubin 0.4 mg/dL (0.15-1.2); Total Protein 6.2 g/dL (6.6-8.7)
[2021-04-29 09:47] LABS: Anion Gap 14.9 (5-19)
[2021-04-29 09:48] LABS: Potassium 4.9 mmol/L (3.5-5.1)
--- NOTE | 2021-04-29 09:50 | PC.NURSE ---
Raymundo Tejada, brother , called for update. Informed caller no changes, BiPap at 65%, pt rested well through the night. Pt happy with being able to swallow pills and drink without O2 sats dropping.
--- NOTE | 2021-04-29 09:56 | PC.NURSE ---
Returned Nikia Hines's call. Updated her on pt's condition. Pt still o BiPap at 65%. He is tired but more upbeat since he swallowed his morning oral meds and sipped some water, he felt that went alot better today. His O2 sats did not drop during, stayed 96%. He says he is not hurting/ in pain.
--- NOTE | 2021-04-29 10:54 | PC.NURSE ---
Bran Rios, brother, called for update. Pt doing about the same, remains on BiPap at 65%. Hopefully be able to wean that down some today. Pt does not have a fever. Pt says he does not hurt.
[2021-04-29 11:45] LABS: Glucose Point of Care 180 mg/dL (70-110)
[2021-04-29] MEDS: cefTRIAXone 1,000 MG in sodium chloride 0.9% (plus) 50 ML 100 MG IV (14:18)
--- NOTE | 2021-04-29 15:31 | PC.NURSE ---
Nikia Hines, called for another update. Pt now on Heated high flow. It has a different kind of air pressure, at first it made him nervous. He got himself worked up. He is doing fine now, O2 sats up. He is watching TV now, relaxing..
--- NOTE | 2021-04-29 15:55 | PM.PN ---
Subjective Subjective: Interval history: Patient was on bipap during my eval - transitioned to HFNC, Very anxious on precedex gtt Medications: Reviewed: Yes Vitals/I&O/Wt Last Vital Signs Temp 97.2 F L 04/29/21 07:30 Pulse 106 H 04/29/21 14:39 Resp 25 H 04/29/21 14:34 BP 158/98 04/29/21 11:00 Pulse Ox 91 04/29/21 14:34 04/29/21 04/29/21 04/29/21 06:59 14:59 22:59 Intake Total 945.667 / 1794.596 467.514 / 467.514 Output Total 1000 / 1525 Balance -54.333 / 269.596 467.514 / 467.514 Weight last 48 hrs Weight 123.434 kg Weight 123.916 kg Physical Exam Narrative: EXAM NARRATIVE: General exam Anxious - HFNC. HEENT : Grossly unremarkable Cardiovascular regular rate and rhythm without murmur Chest : non labored respiration Abdomen is nondistended demonstrates Cristina Extremities no cyanosis clubbing or edema, \ Urinary Catheter Management^: Cristina: Cath Placed During This Visit: yes Reason for Continuing Indwelling Catheter: Accurate Measurement of Urinary Output in Critically Ill Patients Urinary Catheter Date of Insertion: 04/26/21 Urinary Catheter Time of Insertion: 17:38 Data : 04/29/21 08:19 04/29/21 08:19 Micro: Microbiology 04/26/21 00:00 Urine Culture - Final Urine Catheterized A&P Assessment and plan (1) Pneumonia due to COVID-19 virus: Acute respiratory distress hypoxemia due to COVID-19 pneumonia Pulmonary on board Attempting to wean to HFNC May need to revert to Bipap S/p Actemra on 04/26 Remdesivir x total 5 days Decadron 6 mg Daily Pulmicort BID Duoneb Rocephin + azithromycin Blcx - NGTD CT Chest PE protocol - Pending Empirically on fulll dose anticoagulation Precedex wean as tolerated Ferritin, CRP, procal in am Status: Acute (2) Acute respiratory failure with hypoxia: See above Status: Acute (3) Acute kidney injury: Stop IVF May consider lasix Given covid -prefer to maintain deficit status Status: Acute (4) Hypertension: Hold Norvasc and BRYAN inhibitor. Blood pressure low with Precedex. Continue metoprolol as tolerated Status: Acute Qualifiers: Hypertension type: unspecified Qualified Code(s): I10 - Essential (primary) hypertension (5) Hypothyroidism: continue thyroid hormone. Status: Acute Qualifiers: Hypothyroidism type: unspecified Qualified Code(s): E03.9 - Hypothyroidism, unspecified (6) Hyperlipidemia: Continue statin Status: Acute Qualifiers: Hyperlipidemia type: unspecified Qualified Code(s): E78.5 - Hyperlipidemia, unspecified (7) Gout: Continue allopurinol Status: Acute Qualifiers: Gout site: unspecified site Gout etiology: unspecified cause Chronicity: chronic Presence of tophus: without tophus Qualified Code(s): M1A.9XX0 - Chronic gout, unspecified, without tophus (tophi) Additional A&P Information Full code Lovenox for DVT prophylaxis Attestations Medical Necessity Statement*: Will require further hospitalization for management of hypoxic respiratory failure due to COVID-19 pneumonia Time Spent in Patient Care: Greater than 35 minutes (>than 50% of time spent in counselling and/or direct pt care on unit). Critical Care Time: Critical Care Time (min): 40 Coding Level of Care Code Acute Rhinologist for [facility] Fwd Diagnoses Pneumonia due to COVID-19 virus U07.1; J12.82 Acute respiratory failure with hypoxia J96.01 Acute kidney injury N17.9 Hypertension I10 Hypertension type: unspecified Hypothyroidism E03.9 Hypothyroidism type: unspecified Hyperlipidemia E78.5 Hyperlipidemia type: unspecified Gout M1A.9XX0 Gout site: unspecified site Gout etiology: unspecified cause Chronicity: chronic Presence of tophus: without tophus
[2021-04-29] MEDS: dexmedetomidine 400 MCG in sodium chloride 0.9% (100 ml) 100 ML 23.28 MCG IV ×2 (16:26→21:40)
[2021-04-29 17:20] LABS: Glucose Point of Care 222 mg/dL (70-110)
[2021-04-29] MEDS: remdesivir 100 MG in sodium chloride 0.9% (100 ml) 100 ML IV (18:15)
--- NOTE | 2021-04-29 18:39 | PC.NURSE ---
Shift summary: Pt rested in bed throughout shift. Encouraged pt to do some leg exercises and foot pumps while in bed. Noted he did this at least twice today. His lungs sound diminished.. Pt changed from BiPap at 65% to Heated high flow 60 liters/75%. Pt stated he is feeling better. Pt drinking liquids and ate half an bulgarian ice. He stated he still feels very tired though. Precedex still infusing, now at 0/6mcg/kg/min. IV fluids stopped. Third bag of remdesivir infusing at this time. Pt did have a couple panic attacks this shift: Once while using BiPap and his mouth felt so dry, drinks offered pt switched to HHF. The second time within an hour of starting HHF, encouraged hiim to breath deep and slow, Rt increased O2 liters, Pt encouraged to watch TV to distract himself, to find something to laugh at. Pt started watching TV towards end of this shift. Pt has had over 2000ml urine output.
--- NOTE | 2021-04-29 19:00 | PC.NURSE ---
Report given to EUNICE Yepez.
[2021-04-29] MEDS: atorvastatin 40 mg Tablet 20 MG PO (21:46)
[2021-04-29 22:01] LABS: Glucose Point of Care 170 mg/dL (70-110)
[2021-04-30] VITALS (60 sets, daily range): BP systolic 121–167; BP diastolic 73–108; PULSE 70–111; RESP 12–37; TEMP 36.5–36.8; O2SAT 87–100; BMI 36.4
[2021-04-30] MEDS: ondansetron 2 mg/ML SDV 2 mL 4 MG IVP (00:50)
[2021-04-30] MEDS: dexmedetomidine 400 MCG in sodium chloride 0.9% (100 ml) 100 ML 23.28 MCG IV ×3 (02:09→12:03)
[2021-04-30] MEDS: ipratropium-albuterol 3 mL Neb INHALATION ×4 (02:51→20:19)
[2021-04-30] MEDS: enoxaparin 120 mg/0.8 mL Syringe SUBCUT ×2 (06:24→18:10)
[2021-04-30] MEDS: levothyroxine 50 mcg Tablet PO (06:24)
[2021-04-30 08:25] LABS: Glucose Point of Care 136 mg/dL (70-110)
[2021-04-30] MEDS: budesonide 0.5 mg/2 mL Neb INHALATION ×2 (08:29→20:19)
[2021-04-30] MEDS: dexamethasone 4 mg/mL INJ 6 MG IVP (08:49)
[2021-04-30] MEDS: azithromycin 500 MG in sodium chloride 0.9% 250 ML 250 MG IV (08:50)
[2021-04-30] MEDS: pantoprazole DR 40 mg Tablet PO (08:58)
[2021-04-30] MEDS: metoprolol succinate ER (24 HR) 50 mg Tablet PO (08:58)
[2021-04-30] MEDS: allopurinol 100 mg Tablet PO (08:58)
--- NOTE | 2021-04-30 10:15 | PC.NURSE ---
Bran Rios, brother, called for update. No change in his O2 settings. He had a panic attack last night which made h is O2 sats decrease, it took him a bit to recover but he did. He has some appetite this am. He is tired from last night and taking a nap at this itme. His O2 sats are 94% at this time
--- NOTE | 2021-04-30 10:58 | PC.NURSE ---
Nikia Hines, significant other, called for update. Pt resting right now. No CT as of yet, pt unable to lie flat for testing. Pt did have a panic attack last night, got plugged up a little and made him think he was breathing right again, he recovered. His O2 rat has been increased a little. He i says he is feeling better. He did eat a little this morning.
[2021-04-30] MEDS: FUROsemide 10 mg/mL SDV 2mL 20 MG IVP (12:03)
[2021-04-30] MEDS: acetaminophen 325 mg Tablet 650 MG PO (12:20)
--- NOTE | 2021-04-30 14:04 | P.PN_ITS ---
Subjective Subjective: Interval history: patient remained on high-flow nasal cannula. No additional complaints. Medications: Reviewed: Yes Vitals/I&O/Wt Last Vital Signs Temp 98 F 04/30/21 07:30 Pulse 91 04/30/21 13:21 Resp 25 H 04/30/21 13:21 BP 145/94 04/30/21 10:30 Pulse Ox 89 L 04/30/21 13:21 04/29/21 04/30/21 04/30/21 22:59 06:59 14:59 Intake Total 1513.865 / 2031.379 202.552 / 2233.931 804 / 804 Output Total 2049 / 2049 1500 / 3550 700 / 700 Balance -536.135 / -18.621 -1297.448 / -1316.069 104 / 104 Weight last 48 hrs Weight 121.818 kg Weight 123.434 kg Physical Exam Narrative: EXAM NARRATIVE: General exam less -Anxious - HFNC. HEENT : Grossly unremarkable Cardiovascular regular rate and rhythm without murmur Chest : non labored respiration Abdomen is nondistended demonstrates Cristina Extremities no cyanosis clubbing or edema, \ Urinary Catheter Management^: Cristina: Cath Placed During This Visit: yes Reason for Continuing Indwelling Catheter: Accurate Measurement of Urinary Output in Critically Ill Patients Urinary Catheter Date of Insertion: 04/26/21 Urinary Catheter Time of Insertion: 17:38 Data : 04/29/21 08:19 04/29/21 08:19 Micro: Microbiology 04/26/21 00:00 Urine Culture - Final Urine Catheterized A&P Assessment and plan (1) Pneumonia due to COVID-19 virus: Acute respiratory distress hypoxemia due to COVID-19 pneumonia Pulmonary on board Attempting to wean to HFNC May need to revert to Bipap S/p Actemra on 04/26 Remdesivir x total 5 days Decadron 6 mg Daily Pulmicort BID Duoneb Rocephin + azithromycin Pro-calcitonin 0.59 on admission Blcx - NGTD CT Chest PE protocol - Pending, order in place On Full dose dose anticoagulation Precedex wean as tolerated Ferritin, CRP, procal in am D/C IVF Lasix 20 mg IV x 1 now Repeat chest x-ray in am Status: Acute (2) Acute respiratory failure with hypoxia: See above Status: Acute (3) Acute kidney injury: Stop IVF Lasix 20 mg IV x 1 now Given covid -prefer to maintain deficit status Status: Acute (4) Hypertension: Hold Norvasc and BRYAN inhibitor. Blood pressure low with Precedex. Continue metoprolol as tolerated Status: Acute Qualifiers: Hypertension type: unspecified Qualified Code(s): I10 - Essential (primary) hypertension (5) Hypothyroidism: continue thyroid hormone. Status: Acute Qualifiers: Hypothyroidism type: unspecified Qualified Code(s): E03.9 - Hypothyroidism, unspecified (6) Hyperlipidemia: Continue statin Status: Acute Qualifiers: Hyperlipidemia type: unspecified Qualified Code(s): E78.5 - Hyperlipidemia, unspecified (7) Gout: Continue allopurinol Status: Acute Qualifiers: Gout site: unspecified site Gout etiology: unspecified cause Chronicity: chronic Presence of tophus: without tophus Qualified Code(s): M1A.9XX0 - Chronic gout, unspecified, without tophus (tophi) Additional A&P Information Full code Lovenox for DVT prophylaxis Attestations Medical Necessity Statement*: Will require further hospitalization for management of respiratory distress due to COVID-19 pneumonia Time Spent in Patient Care: Greater than 35 minutes (>than 50% of time spent in counselling and/or direct pt care on unit) . Coding Level of Care Code Acute Web Weaver for [facility] Fwd Diagnoses Pneumonia due to COVID-19 virus U07.1; J12.82 Acute respiratory failure with hypoxia J96.01 Acute kidney injury N17.9 Hypertension I10 Hypertension type: unspecified Hypothyroidism E03.9 Hypothyroidism type: unspecified Hyperlipidemia E78.5 Hyperlipidemia type: unspecified Gout M1A.9XX0 Gout site: unspecified site Gout etiology: unspecified cause Chronicity: chronic Presence of tophus: without tophus
[2021-04-30] MEDS: cefTRIAXone 1,000 MG in sodium chloride 0.9% (plus) 50 ML 100 MG IV (14:31)
[2021-04-30 14:46] LABS: Glucose Point of Care 177 mg/dL (70-110)
[2021-04-30] MEDS: dexmedetomidine 400 MCG in sodium chloride 0.9% (100 ml) 100 ML 19.95 MCG IV ×2 (16:50→21:26)
[2021-04-30 17:30] LABS: Glucose Point of Care 188 mg/dL (70-110)
--- NOTE | 2021-04-30 18:00 | PC.NURSE ---
Nikia Hines, called to check on pt. Discussed no significant changes. his oxygen is now 60 liters and 80%, a slight increase. Pt seems to be feeling better physically. He is getting frustrated and tired of being ill. He has ate small amounts of his liquid diet. 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
[2021-04-30] MEDS: remdesivir 100 MG in sodium chloride 0.9% (100 ml) 100 ML IV (18:08)
--- NOTE | 2021-04-30 19:04 | PC.NURSE ---
Sift summary: Pt rested in be throughout the day. Last dose of Remdesivir completed. Precedex infusing at 0.6 mcg/kg/hr. Tubing lines changed today. Pt brushed his teeth today. His O2 sats do drop to 85-86% when he is anxious. Discussed deep breathing and relaxation imagery today. He does seem more despondent today. I don't want to be a burden . Discussed his feelings normal after being stronger and doing all kinds of stuff then having a hard time to breath. 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 Spoke He drinks small of amounts of his clear liquid diet. Regular food offered, pt does not feel like he is ready for that yet. He remained on heated high flow throughout shift, it is now at 6 0liters and 80%, a small increase.
--- NOTE | 2021-04-30 19:14 | PC.NURSE ---
Report given to EUNICE Yepez
[2021-04-30] MEDS: atorvastatin 40 mg Tablet 20 MG PO (19:35)
[2021-04-30 20:10] LABS: Glucose Point of Care 178 mg/dL (70-110)
[2021-05-01] VITALS (62 sets, daily range): BP systolic 109–167; BP diastolic 74–108; PULSE 64–120; RESP 15–35; TEMP 36.8; O2SAT 83–100; BMI 35.8
[2021-05-01] MEDS: ipratropium-albuterol 3 mL Neb INHALATION ×4 (02:35→20:30)
[2021-05-01] MEDS: dexmedetomidine 400 MCG in sodium chloride 0.9% (100 ml) 100 ML 9.98 MCG IV ×2 (04:51→15:14)
[2021-05-01] MEDS: levothyroxine 50 mcg Tablet PO (06:04)
[2021-05-01] MEDS: enoxaparin 120 mg/0.8 mL Syringe SUBCUT ×2 (06:04→18:05)
[2021-05-01 06:45] LABS: Basophils # 0.1 10^3/uL (0.0-0.1); Basophils % 0.4 %; Eosinophils % 0.3 %; Hematocrit 50.9 % (42.0-52.0); Hemoglobin 16.6 g/dL (11.7-16.6); Lymphocytes # 2.6 10^3/uL (0.8-4.8); Lymphocytes % 16.2 %; Mean Corpuscular HGB Conc 32.6 g/dL (30.0-36.0); Mean Corpuscular Hemoglobin 28.4 pg (28.0-34.0); Mean Platelet Volume 9.7 fL (7.4-10.4); Monocytes % 6.3 %; Neutrophils # 11.53 10^3/uL (1.8-7.7); Neutrophils % 72.9 %; Nucleated Red Blood Cells % 0.1 %; Platelet Count 317 10^3/cmm (130-400); Red Blood Count 5.85 10^6/uL (4.1-5.3); Red Cell Distribution Width 13.3 % (12.1-15.1); White Blood Count 15.8 10^3/uL (4.0-10.0)
--- NOTE | 2021-05-01 07:00 | XRR_ITS ---
PROCEDURE INFORMATION: Exam: XR Chest Exam date and time: 05/01/2021 7:00 AM Age: 60 years old Clinical indication: Condition or disease; Lung condition and disease; Respiratory failure; Patient HX: Covid + TECHNIQUE: Imaging protocol: XR of the chest. Views: 1 view. COMPARISON: CR XR chest 1V portable [id number] 04/26/2021 3:27 PM FINDINGS: Tubes, catheters and devices: Monitor leads project over the chest wall. Lungs: Bilateral pulmonary opacities keeping with known pneumonia, no change. Pleural spaces: Unremarkable. No pleural effusion. No pneumothorax. Heart/Mediastinum: Cardiomediastinal silhouette is stable. Bones/joints: No acute fracture. XR/XR chest 1V portable [id number] IMPRESSION: Stable appearance of the lungs.
[2021-05-01 07:03] LABS: Alanine Aminotransferase 68 U/L (0-41); Albumin Level 3.2 g/dL (3.5-5.2); Alkaline Phosphatase 143 IU/L (40-130); Anion Gap 13.8 (5-19); Aspartate Amino Transferase 78 U/L (0-40); Blood Urea Nitrogen 34 mg/dL (6-20); C Reactive Protein 8.8 mg/L (0.0-4.9); Calcium 8.3 mg/dL (8.5-10.5); Carbon Dioxide 28 mmol/L (22-29); Chloride 104 mmol/L (98-107); Globulin 3.3 g/dL (1.3-4.6); Glomerular Filtration Rate 76.5 mL/min (90-130); Glucose 110 mg/dL (65-115); Osmolality Calculated 300 mOsm/kg (285-295); Potassium 4.8 mmol/L (3.5-5.1); Sodium 141 mmol/L (136-145); Total Protein 6.5 g/dL (6.6-8.7)
[2021-05-01 07:04] LABS: D Dimer 9.87 ug/mIFEU (0-0.59)
[2021-05-01 07:10] LABS: Procalcitonin 0.12 ng/mL (0-0.5)
--- NOTE | 2021-05-01 07:10 | CT_ITS ---
WS: [id number] CTA OF THE CHEST WITH PULMONARY EMBOLISM PROTOCOL TECHNIQUE: High-resolution contrast enhanced CTA of the chest with coronal and sagittal reformatted i mages with pulmonary embolism protocol. MIP images are also reviewed. CLINICAL INFORMATION: dyspnea, hypoxia, covid COMPARISON: None. DLP: 566.[address] scans at [facility] use at least one of these dose optimization techniques: automat ed exposure control; mA and/or kV adjustment per patient size (includes targeted exams where dose is matched to clinical indication); or iterative reconstruction. FINDINGS: Proximal main pulmonary arteries are normal. Normal segmental pulmonary arteries. Poor filling of the right upper lobe pulmonary artery suspicious for pulmonary embolus. Subsegmental pulmonary arteries not well evaluated due to breathing artifact. No proximal pulmonary embolus. Motion degrades some rosalie ges. Normal caliber thoracic aorta. Diffuse hazy bilateral groundglass infiltrates compatible with COVID 19 pneumonia. No focal consolida tion or pleural fluid. Cardiomegaly. No mediastinal or hilar lymphadenopathy. Adrenal glands are normal. Hypertrophic changes thoracic spine. CT/CT angio chest PE protcl [id number] IMPRESSION: 1. Proximal main pulmonary arteries are normal. Poor filling of the right uppe r lobe pulmonary artery suspicious for pulmonary embolus. Distal subsegmental a rteries not well evaluated due to motion artifact. 2. Diffuse hazy bilateral groundglass pulmonary infiltrates throughout both lopez ngs compatible with COVID 19 pneumonia. 3. No focal consolidation or pleural fluid. 4. Cardiomegaly. Discussed with Burton Renae MD at 05/01/2021 11:37 AM. Message left for Dr. Salmon at 05/01/2021 11:39 AM
[2021-05-01 07:16] LABS: Ferritin 1348 ng/mL (30-400); Lactate Dehydrogenase 1044 U/L (135-225)
[2021-05-01 07:47] LABS: Glucose Point of Care 125 mg/dL (70-110)
--- NOTE | 2021-05-01 08:19 | USCV_ITS ---
Isrrael Tejada Age: 60 Gender: M : 1960 Exam Date: 05/01/2021 10:00 Ordering Phys: Jeremiah Salmon MD Technologist: Exam Location: [facility] [place] Indication: SOB BP: 119 / 88 HR: 112 Rhythm: Sinus Technical Quality: Technically difficult study MEASUREMENTS (Male / Female) Normal Values 2D ECHO LV Diastolic Diameter PLAX 3.3 cm 4.2 - 5.9 / 3.9 - 5.3 cm LV Systolic Diameter PLAX 2.6 cm IVS Diastolic Thickness 1.3 cm 0.6 - 1.0 / 0.6 - 0.9 cm IVS Systolic Thickness 1.6 cm LVPW Diastolic Thickness 1.2 cm 0.6 - 1.0 / 0.6 - 0.9 cm LVPW Systolic Thickness 1.9 cm LVOT Diameter 2.1 cm LV Ejection Fraction 2D Teich 29.7 % LV Ejection Fraction MOD 2C 66.2 % LV Ejection Fraction 2C AL 66.0 % LA Diameter 3.9 cm LA Width 4.1 cm LA Height 5.1 cm RA Width 3.5 cm RA Height 5.4 cm DOPPLER AV Peak Velocity 133.7 cm/s LVOT Peak Velocity 76.1 cm/s AV Area Cont Eq vti 1.6 cm squared AV Area Cont Eq pk 2.0 cm squared MV Area PHT 5.1 cm squared Mitral E to A Ratio 0.6 MV E' Velocity 25.6 cm/s Mitral E to LV E' Lateral Ratio 8.9 TR Peak Velocity 180.8 cm/s TR Peak Gradient 13.1 mmHg TV Peak E Velocity 63.1 cm/s Right Atrial Pressure 3.0 mmHg Pulmonary Artery Systolic Pressu 16.1 mmHg PV Peak Velocity 104.0 cm/s FINDINGS Left Ventricle Normal left ventricular size and systolic function, EF 62 %. No regional wall motion abnormalities. Right Ventricle The right ventricle is normal in size and function. Right Atrium The right atrium is normal in size. Left Atrium The left atrium is normal in size. Mitral Valve No gross abnormalities noted Aortic Valve Thickened aortic valve. Tricuspid Valve No gross abnormalities noted Pulmonic Valve Pulmonic valve not well visualized. Pericardium Normal pericardium without effusion. Aorta Normal ascending aorta dimension. CONCLUSIONS Normal left ventricular size and systolic function, EF 62 %. No regional wall motion abnormalities. No significant stenotic or related lesions. Minimally thickened aortic valve. There is no pericardial effusion. There are no intracardiac masses. No previous study is available for comparison. Dr Jamir Biggs MD [facility] (Electronically Signed) Final Date: 01 May 2021 20:39 S
--- NOTE | 2021-05-01 08:24 | P.PN_ITS ---
Subjective Subjective: Interval history: Seen multiple times during the day. Hospital course, labs appreciated. Examination patient sitting up in bed on heated high flow. He states he is feeling better than before. Denies any nausea, vomiting, headache. Not anxious. As per the nurse patient is less anxious than before. Denies any abdominal pain. Currently on clear liquid diet. For now he is requesting to be continued on clear liquid diet only. Discussed with him about importance of being on incentive spirometry and flutter valve. Also discussed the need of ambulation as much as possible. Discussed that he should be sitting up in chair for as long as possible today. Medications: Reviewed: Yes Vitals/I&O/Wt Last Vital Signs Temp 98.3 F 05/01/21 00:00 Pulse 82 05/01/21 06:00 Resp 21 H 05/01/21 06:00 BP 129/84 05/01/21 06:00 Pulse Ox 90 05/01/21 06:00 04/30/21 05/01/21 05/01/21 22:59 06:59 14:59 Intake Total 645.77 / 1449.77 104 / 1553.77 Output Total 300 / 2200 850 / 3050 Balance 345.77 / -750.23 -746 / -1496.23 Weight last 48 hrs Weight 119.89 kg Weight 121.818 kg Physical Exam Narrative: EXAM NARRATIVE: General: No acute distress, AO x3 on heated high flow, tired appearing HEENT: PERRLA, pupils bilaterally equal and reactive Chest: Normal vesicular breath sounds, bilateral diffuse crackles present. equal good air entry bilaterally CVS: S1-S2 regular, no murmurs, no tachycardia, no gallops, no rubs Abdomen: Soft, nontender, no organomegaly, bowel sounds present Neuro: No focal deficits, no facial deformity, AO x3, power 5/5 in all limbs Urinary Catheter Management^: Cristina: Cath Placed During This Visit: yes Reason for Continuing Indwelling Catheter: Accurate Measurement of Urinary Output in Critically Ill Patients Urinary Catheter Date of Insertion: 04/26/21 Urinary Catheter Time of Insertion: 17:38 Data : 05/01/21 06:33 05/01/21 06:33 A&P Assessment and plan (1) Pneumonia due to COVID-19 virus: Status: Acute (2) Acute respiratory failure with hypoxia: See above Status: Acute (3) Acute kidney injury: Resolved. Status: Acute (4) Hypertension: Status: Acute Qualifiers: Hypertension type: unspecified Qualified Code(s): I10 - Essential (primary) hypertension (5) Hypothyroidism: continue thyroid hormone. Status: Acute Qualifiers: Hypothyroidism type: unspecified Qualified Code(s): E03.9 - Hypothyroidism, unspecified (6) Hyperlipidemia: Continue statin Status: Acute Qualifiers: Hyperlipidemia type: unspecified Qualified Code(s): E78.5 - Hyperlipidemia, unspecified (7) Gout: Continue allopurinol Status: Acute Qualifiers: Chronicity: chronic Gout etiology: unspecified cause Gout site: unspecified site Presence of tophus: without tophus Qualified Code(s): M1A.9XX0 - Chronic gout, unspecified, without tophus (tophi) Additional A&P Information ARDS secondary to COVID-19 pneumonia: ABG appreciated. Patient post Actemra on April 26. Patient has finished 5 dose of remdesivir. Because patient is requiring high oxygen supplementation and elevated inflammatory markers will give additional 5 days of remdesivir. Continue dexamethasone 6 mg IV daily. DuoNeb every 4 hour, budesonide twice daily. Continue with full dose of Lovenox 1 mg per KG body weight every 12 hourly. Tessalon Perles. Vitamin C, zinc. Check CTA. Aggressive pulmonary toilet with incentive spirometry and flutter valve. We will try to keep patient as negative as possible. Fluid restriction up to 1800 cc. Strict input output charting. IV Lasix 40 mg stat. Check procalcitonin. Urine Legionella, bacterial antigen negative. Check MRSA swab. Patient has had 6 days of ceftriaxone and azithromycin. For now we will stop after finishing the 7-day course. Continue to monitor daily inflammatory markers for now. Precedex drip. We will try to wean as suitable. Hypertension: Goal blood pressure less than 140/90 mmHg. Blood pressures better. For now we will continue to monitor. Continue to hold off on home dose of Norvasc and BRYAN inhibitor. Continue with home dose of metoprolol. Full code Lovenox for DVT prophylaxis Clear liquid diet. We will try to advance to full liquid diet/GI soft within next 24 hours. Ambulation. Out of bed to chair. Attestations Medical Necessity Statement*: Patient requires further hospitalization for management of ARDS because of COVID-19 pneumonia. Critical Care Time: The high probability of a clinically significant, sudden or life threatening deterioration of the patient's [pulmonary] system(s) required my full and direct attention, intervention and personal management. The critical care time is as shown. This time is in addition to time spent performing any reported procedures but includes the following: [x] Data and vital sign review and interpretation [x] Patient assessment, examination and intervention [x] Documentation [x] Medication orders and management Critical Care Time (min): 70 Coding Level of Care Code Acute Starter Cup Powder Mixer for [facility] Fwd Diagnoses Pneumonia due to COVID-19 virus U07.1; J12.82 Acute respiratory failure with hypoxia J96.01 Acute kidney injury N17.9 Hypertension I10 Hypertension type: unspecified Hypothyroidism E03.9 Hypothyroidism type: unspecified Hyperlipidemia E78.5 Hyperlipidemia type: unspecified Gout M1A.9XX0 Chronicity: chronic Gout etiology: unspecified cause Gout site: unspecified site Presence of tophus: without tophus
[2021-05-01] MEDS: dexamethasone 4 mg/mL INJ 6 MG IVP (09:04)
[2021-05-01] MEDS: FUROsemide 10 mg/mL SDV 4mL 40 MG IVP (09:04)
[2021-05-01] MEDS: pantoprazole DR 40 mg Tablet PO (09:05)
[2021-05-01] MEDS: allopurinol 100 mg Tablet PO (09:05)
[2021-05-01] MEDS: metoprolol succinate ER (24 HR) 50 mg Tablet PO (09:05)
[2021-05-01] MEDS: benzonatate 100 mg Capsule PO ×3 (09:05→21:17)
[2021-05-01] MEDS: zinc gluconate 50 mg Tablet PO (09:05)
[2021-05-01] MEDS: azithromycin 250 mg Tablet 500 MG PO (09:06)
[2021-05-01] MEDS: budesonide 0.5 mg/2 mL Neb INHALATION ×2 (09:07→20:30)
[2021-05-01 09:56] LABS: Iron 103 ug/dL (59-158); NT Pro B Type Natriuretic Pept 327 pg/mL (0-125); Total Iron Binding Capacity 219 mcg/dl; Unsaturated Iron Binding 116 ug/dL (112-347)
[2021-05-01] MEDS: iohexol 350 mg/mL 100 mL Btl IV (11:05)
--- NOTE | 2021-05-01 11:15 | PC.NURSE ---
Pt to CT., with Non-rebreather. Precedex at 0.7mcg/kg/hr. Pt tolerated well. Back to room, to chair at bedside, Pt tolerating well
[2021-05-01 12:09] LABS: Glucose Point of Care 208 mg/dL (70-110)
--- NOTE | 2021-05-01 14:00 | PM.PN ---
Subjective Subjective: Interval history: -Patient seen at bedside today morning -Currently on 60 L and 80% FiO2 -Appeared comfortable in chair and denied any new complaints -went to CT chest angiogram today -Labs and imaging reviewed and pertinent findings incorporated in assessment and plan Vitals/I&O/Wt Last Vital Signs Temp 98.3 F 05/01/21 00:00 Pulse 99 05/01/21 13:12 Resp 26 H 05/01/21 13:12 BP 141/93 05/01/21 08:00 Pulse Ox 91 05/01/21 13:12 04/30/21 05/01/21 05/01/21 22:59 06:59 14:59 Intake Total 645.77 / 1449.77 104 / 1553.77 Output Total 300 / 2200 850 / 3050 Balance 345.77 / -750.23 -746 / -1496.23 Weight last 48 hrs Weight 264 lb 5 oz Weight 268 lb 9 oz Physical Exam Narrative: EXAM NARRATIVE: General: alert, moderate respiratory distress on HFNC 60 L 80% FIO2 HEENT: conj clear, EOMI, PERRL, mmm, Neck: supple, no meningismus Heme: no cervical LAP Pulmonary: Bilateral coarse crackles Cardiovascular: rrr, nl s1s2, no mrg Abdomen: soft, nt, nd, no r/g, bs+ Extremities: pulses +, no edema, no c/c : no CVA tenderness Skin: intact, no rash MSK: no back or neck pain Neurologic: grossly intact Urinary Catheter Management^: Cristina: Cath Placed During This Visit: yes Reason for Continuing Indwelling Catheter: Accurate Measurement of Urinary Output in Critically Ill Patients Urinary Catheter Date of Insertion: 04/26/21 Urinary Catheter Time of Insertion: 17:38 Data : 05/01/21 06:33 05/01/21 06:33 Other Labs: Laboratory Results WBC 15.8 10^3/uL (4.0-10.0) H 05/01/21 06:33 RBC 5.85 10^6/uL (4.1-5.3) H 05/01/21 06:33 Hgb 16.6 g/dL (11.7-16.6) 05/01/21 06:33 Hct 50.9 % (42.0-52.0) 05/01/21 06:33 MCV 87.0 fL (80-94) 05/01/21 06:33 MCH 28.4 pg (28.0-34.0) 05/01/21 06:33 MCHC 32.6 g/dL (30.0-36.0) 05/01/21 06:33 RDW 13.3 % (12.1-15.1) 05/01/21 06:33 Plt Count 317 10^3/cmm (130-400) 05/01/21 06:33 MPV 9.7 fL (7.4-10.4) 05/01/21 06:33 Neut % (Auto) 72.9 % 05/01/21 06:33 Lymph % (Auto) 16.2 % 05/01/21 06:33 [place] % (Auto) 6.3 % 05/01/21 06:33 Eos % (Auto) 0.3 % 05/01/21 06:33 Baso % (Auto) 0.4 % 05/01/21 06:33 Neut # (Auto) 11.53 10^3/uL (1.8-7.7) H 05/01/21 06:33 Lymph # (Auto) 2.6 10^3/uL (0.8-4.8) 05/01/21 06:33 [place] # (Auto) 1.0 10^3/uL (0.2-0.9) H 05/01/21 06:33 Eos # (Auto) 0.0 10^3/uL (0.0-0.8) 05/01/21 06:33 Baso # (Auto) 0.1 10^3/uL (0.0-0.1) 05/01/21 06:33 Nucleated RBC % (auto) 0.1 % 05/01/21 06:33 Nucleated RBCs # 0.0 /100WBC 05/01/21 06:33 D-Dimer 9.87 ug/mIFEU (0-0.59) H 05/01/21 06:33 Specimen Type Arterial 04/27/21 01:24 Sample Site Radial, right 04/27/21 01:24 ABG pH 7.41 (7.35-7.45) 04/27/21 01:24 ABG pCO2 36.4 mmHg (35-45) 04/27/21 01:24 ABG pO2 55.7 mmHg (80.0-100.0) L 04/27/21 01:24 ABG HCO3 22.8 mmol/L (22-26) 04/27/21 01:24 ABG O2 Saturation 88.2 04/27/21 01:24 ABG Base Excess -1.5 mmol/L (-2.0-2.0) 04/27/21 01:24 Cliff Test Pos 04/27/21 01:24 A-a O2 Gradient 79.5 mmHg (5-10) H 04/27/21 01:24 Hematocrit 45.2 % (42-52) 04/27/21 01:24 Hgb O2 Saturation 87.1 % (95-100) L 04/27/21 01:24 Carboxyhemoglobin 0.4 %THgb (0.4-20.1) 04/27/21 01:24 Methemoglobin 0.8 % (0.4-1.5) 04/27/21 01:24 Total Hemoglobin 14.7 g/dL (14-18) 04/27/21 01:24 Sodium 139.0 mmol/L (131-143) 04/27/21 01:24 Potassium 3.7 mmol/L (3.5-5.0) 04/27/21 01:24 Glucose 263.0 mg/dL (70-115) H 04/27/21 01:24 Ionized Calcium 1.2 mmol/L (1.1-1.4) 04/27/21 01:24 O2 Delivery Device Bipap 04/27/21 01:24 FiO2 100.0 % 04/27/21 01:24 Source Water Protection Specialist ID Harkr 04/27/21 01:24 Sodium 141 mmol/L (136-145) 05/01/21 06:33 Potassium 4.8 mmol/L (3.5-5.1) 05/01/21 06:33 Chloride 104 mmol/L (98-107) 05/01/21 06:33 Carbon Dioxide 28 mmol/L (22-29) 05/01/21 06:33 Anion Gap 13.8 (5-19) 05/01/21 06:33 BUN 34 mg/dL (6-20) H 05/01/21 06:33 Creatinine 1.0 mg/dL (0.7-1.2) 05/01/21 06:33 GFR Calculation 76.5 mL/min (90-130) L 05/01/21 06:33 Glucose 110 mg/dL (65-115) 05/01/21 06:33 POC Glucose 150 mg/dL (70-110) H 05/01/21 17:08 Estimat Average Glucose 148 04/26/21 16:50 Hemoglobin A1c 6.8 % (4.0-6.0) H 04/26/21 16:50 Calculated Osmolality 300 mOsm/kg (285-295) H 05/01/21 06:33 Calcium 8.3 mg/dL (8.5-10.5) L 05/01/21 06:33 Magnesium 2.8 mg/dL (1.7-2.3) H 04/28/21 04:23 Iron 103 ug/dL (59-158) 05/01/21 06:33 TIBC 219 mcg/dl 05/01/21 06:33 % Saturation 47.0 % (20-50) 05/01/21 06:33 Unsat Iron Binding 116 ug/dL (112-347) 05/01/21 06:33 Ferritin 1348 ng/mL (30-400) H 05/01/21 06:33 Total Bilirubin 1.0 mg/dL (0.15-1.2) 05/01/21 06:33 AST 78 U/L (0-40) H 05/01/21 06:33 ALT 68 U/L (0-41) H 05/01/21 06:33 Alkaline Phosphatase 143 IU/L (40-130) H 05/01/21 06:33 Lactate Dehydrogenase 1044 U/L (135-225) H 05/01/21 06:33 C-Reactive Protein 8.8 mg/L (0.0-4.9) H 05/01/21 06:33 NT-Pro-B Natriuret Pep 327 pg/mL (0-125) H 05/01/21 06:33 Total Protein 6.5 g/dL (6.6-8.7) L 05/01/21 06:33 Albumin 3.2 g/dL (3.5-5.2) L 05/01/21 06:33 Globulin 3.3 g/dL (1.3-4.6) 05/01/21 06:33 Procalcitonin 0.12 ng/mL (0-0.5) 05/01/21 06:33 TSH 1.25 uIU/mL (0.27-4.20) 04/26/21 16:50 Influenza Type A Ag Negative (Negative) 04/26/21 17:00 Influenza Type B Ag Negative (Negative) 04/26/21 17:00 Impressions Chest X-Ray 05/01/21 07:00 IMPRESSION: Stable appearance of the lungs. Chest CTA 05/01/21 07:10 IMPRESSION: 1. Proximal main pulmonary arteries are normal. Poor filling of the right upper lobe pulmonary artery suspicious for pulmonary embolus. Distal subsegmental arteries not well evaluated due to motion artifact. 2. Diffuse hazy bilateral groundglass pulmonary infiltrates throughout both lungs compatible with COVID 19 pneumonia. 3. No focal consolidation or pleural fluid. 4. Cardiomegaly. Discussed with Burton Renae MD at 05/01/2021 11:37 AM. Message left for Dr. Salmon at 05/01/2021 11:39 AM A&P Assessment and plan (1) Acute respiratory failure with hypoxia: Status: Acute (2) ARDS (adult respiratory distress syndrome): Status: Acute (3) Pneumonia due to COVID-19 virus: Status: Acute (4) Gout: Status: Acute Qualifiers: Gout site: unspecified site Gout etiology: unspecified cause Chronicity: chronic Presence of tophus: without tophus Qualified Code(s): M1A.9XX0 - Chronic gout, unspecified, without tophus (tophi) (5) Hyperlipidemia: Status: Acute Qualifiers: Hyperlipidemia type: unspecified Qualified Code(s): E78.5 - Hyperlipidemia, unspecified (6) Hypothyroidism: Status: Acute Qualifiers: Hypothyroidism type: unspecified Qualified Code(s): E03.9 - Hypothyroidism, unspecified (7) Hypertension: Status: Acute Qualifiers: Hypertension type: unspecified Qualified Code(s): I10 - Essential (primary) hypertension (8) Acute kidney injury: Status: Acute (9) Pulmonary embolism associated with COVID-19: Status: Acute Overall: 60-year-old male with past medical history of hypertension, hyperlipidemia, hypothyroidism, gout, obesity transferred from outside hospital for acute hypoxic respiratory failure secondary to ARDS due to COVID-19 pneumonia and right upper lobe pulmonary embolism-currently on-[facility] #Acute hypoxic respiratory failure due to ARDS due to COVID-19 pneumonia #Poor filling of the right upper lobe pulmonary artery suspicious for pulmonary embolus. Distal subsegmental arteries not well evaluated due to motion artifact. #MARC based on labs from outside labs sent BUN/creatinine 24/1.6 - saturating 90% on HFNC 60 L and FiO2 80% -Significantly elevated D-dimer -CTA 05/01/2021: Tor filling of the right upper lobe pulmonary artery suspicious for pulmonary embolus. Distal subsegmental arteries not well evaluated due to motion artifact. to rule out PE - bilateral lower extremity venous Doppler-ruled out DVT -Currently on Lovenox therapeutic anticoagulation on 120 every 12 -on low-dose Precedex for anxiety -Did not tolerate proning or semiproning- -afebrile, WBC 15 K, pro-Tristin 0.12, BNP 816, -Negative bacterial antigen, MRSA undetected, so far bacterial cultures negative -on remdesivir protocol for 5 days on 04/26/21 and dexamethasone 6 mg IV daily -Due to high ferritin and LDH-we will continue 5 more days of remdesivir -Given 1 dose tocilizumab 04/26/21 -DuoNeb nebulizations every 6 hours and budesonide twice daily -Encourage out of bed to chair, incentive spirometry and flutter valve -Started on ceftriaxone & azithromycin 04/26/21 -will complete 7-day course -monitor inflammatory markers every 48 hours; CRP 8.8 D-dimer 0.83 > 11> 9 -BUN/creatinine 26/1.5 at outside facility; today BUN 34 and creatinine 1 -Overall net -2.7 L since admission; maintaining good urine output - improving creatinine, electrolytes within normal limits -Closely monitor SANNA's and renal parameters -held BRYAN inhibitor his home medication -Worsening LFTs -likely due to COVID-19 pneumonia-monitor -Hold Lipitor 20 p.o. daily for hyperlipidemia-in view of worsening LFTs -On allopurinol for his gout -On amlodipine 10 mg daily, metoprolol 50 mg daily, for hypertension -On levothyroxine 50 MCG p.o. every morning for hypothyroidism -Sugars controlled with scale coverage -Pantoprazole 40 mg daily for GI prophylaxis and history of GERD -On therapeutic dose of Lovenox for significantly elevated D-dimer -On liquid diet; plan is to advance as tolerated to soft food tomorrow Medical condition and management plan discussed with patient and he verbalized understanding and agreed with the plan. Recommendations conveyed to hospitalist covering the patient Attestations Medical Necessity Statement*: Needs continued hospitalization in the ICU secondary to severe respiratory failure secondary to COVID-19 pneumonia and right upper lobe PE Critical Care Time: Critical Care Time (min): 45 Other Attestations: The high probability of a clinically significant, sudden or life threatening deterioration of the patient's [pulmonary, renal] system(s) required my full and direct attention, intervention and personal management. The critical care time is as shown. This time is in addition to time spent performing any reported procedures but includes the following: [x] Data and vital sign review and interpretation [x] Patient assessment, examination and intervention [x] Documentation [x] Medication orders and management Coding Level of Care Code Established Pt Acute Cdl A Driver for Chg Fwd Patient Type Established History Comprehensive Exam Comprehensive Medical Decision Making High Complexity Diagnoses Acute respiratory failure with hypoxia J96.01 ARDS (adult respiratory distress syndrome) J80 Pneumonia due to COVID-19 virus U07.1; J12.82 Gout M1A.9XX0 Gout site: unspecified site Gout etiology: unspecified cause Chronicity: chronic Presence of tophus: without tophus Hyperlipidemia E78.5 Hyperlipidemia type: unspecified Hypothyroidism E03.9 Hypothyroidism type: unspecified Hypertension I10 Hypertension type: unspecified Acute kidney injury N17.9 Pulmonary embolism associated with COVID-19 U07.1; I26.99 Time Spent (min) 45
--- NOTE | 2021-05-01 14:35 | PC.NURSE ---
Pt back to bed. Lying on right lateral side. O2 sats 93%. Pt tolerating well.
[2021-05-01] MEDS: cefTRIAXone 1,000 MG in sodium chloride 0.9% (plus) 50 ML 100 MG IV (14:47)
--- NOTE | 2021-05-01 16:08 | PC.NURSE ---
Returned call to Nikia Hines, Pt has had a busy morning. He has an Echo to check his heart movement and to check for blood clots. Still pending for data capture clerk to read. He had a CT of his chest, Dr Quarles and Dr Snell have not finished their notes yet. Pt has sat up in a chair for several hours today. Getting his phone really perked him up this am. Jerad brought him some bottled water this am, he does not like the water here. He is feeling better , per his report , and he asked for something other than clear liquid diet for his next meal.
[2021-05-01] MEDS: remdesivir 100 MG in sodium chloride 0.9% (100 ml) 100 ML IV (16:55)
[2021-05-01 17:14] LABS: Glucose Point of Care 150 mg/dL (70-110)
[2021-05-01] MEDS: ferrous gluconate 324 mg Tablet PO (18:05)
[2021-05-01] MEDS: ascorbic acid 500 mg Tablet 1000 MG PO (18:05)
--- NOTE | 2021-05-01 18:05 | PC.NURSE ---
Brother Bran called to check on pt. Updated him on pt's busy day, CTA and echo. Pt up to chair today. Pt now has his cell phone if you would like to call him.
--- NOTE | 2021-05-01 19:08 | PC.NURSE ---
Report given to EUNICE Yepez.
--- NOTE | 2021-05-01 19:08 | PC.NURSE ---
Shift summary: Pt has had a busy day. 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 He has had an ECHO went for a CTA. He has sat up in chair twice. first time a little over 2 hours. Her O2 sats 96% while sitting. Then he went to bed , rested in lateral right position. He said it felt good. He got out of bed again at 1730 and continues to sit in the chair at this time. Dr Changed his Azithromycin to PO. Started him on Vitamin C, Ferrous Gluconate, Zinc and Tessalon Pearls today. His diet was advanced today. No change in Heated high flow settings: 60 liters, 80%. Urine ouput greater than 2200m., See I & Os.
[2021-05-02] VITALS (62 sets, daily range): BP systolic 101–161; BP diastolic 74–115; PULSE 74–125; RESP 8–48; TEMP 36.4–36.8; O2SAT 79–99; BMI 35.9
[2021-05-02] MEDS: ipratropium-albuterol 3 mL Neb INHALATION ×7 (00:04→23:46)
[2021-05-02] MEDS: dexmedetomidine 400 MCG in sodium chloride 0.9% (100 ml) 100 ML 9.98 MCG IV ×2 (03:19→16:17)
[2021-05-02 04:16] LABS: Estmated Average Glucose 154
[2021-05-02 04:20] LABS: C Reactive Protein 5.3 mg/L (0.0-4.9); Lactate Dehydrogenase 862 U/L (135-225); NT Pro B Type Natriuretic Pept 212 pg/mL (0-125)
[2021-05-02 04:21] LABS: Fibrinogen 298 mg/dL (174-498)
[2021-05-02 04:41] LABS: Creatine Phosphokinase 338 U/L (39-308)
[2021-05-02 04:47] LABS: D Dimer 6.72 ug/mIFEU (0-0.59)
[2021-05-02 04:52] LABS: Ferritin 1136 ng/mL (30-400)
[2021-05-02] MEDS: levothyroxine 50 mcg Tablet PO (05:56)
[2021-05-02] MEDS: aspirin 81 mg EC Tablet PO (05:56)
[2021-05-02] MEDS: enoxaparin 120 mg/0.8 mL Syringe SUBCUT (05:56)
--- NOTE | 2021-05-02 06:00 | XRR_ITS ---
PROCEDURE INFORMATION: Exam: XR Chest Exam date and time: 05/02/2021 6:00 AM Age: 60 years old Clinical indication: Dyspnea; Additional info: Covid TECHNIQUE: Imaging protocol: XR of the chest. Views: 1 view. COMPARISON: CR XR chest 1V portable [id number] 05/01/2021 7:05 AM FINDINGS: Lungs: Bibasal lung infiltrates are present. Pleural spaces: Unremarkable. No pleural effusion. No pneumothorax. Heart/Mediastinum: Unremarkable. No cardiomegaly. Bones/joints: Unremarkable. XR/XR chest 1V portable [id number] IMPRESSION: No interval change is seen.
[2021-05-02] MEDS: pantoprazole DR 40 mg Tablet PO (08:01)
[2021-05-02] MEDS: allopurinol 100 mg Tablet PO (08:01)
[2021-05-02] MEDS: ferrous gluconate 324 mg Tablet PO ×2 (08:01→17:15)
[2021-05-02] MEDS: metoprolol succinate ER (24 HR) 50 mg Tablet PO (08:01)
[2021-05-02] MEDS: azithromycin 250 mg Tablet 500 MG PO (08:01)
[2021-05-02] MEDS: ascorbic acid 500 mg Tablet 1000 MG PO ×2 (08:02→17:14)
[2021-05-02] MEDS: dexamethasone 4 mg/mL INJ 6 MG IVP (08:02)
[2021-05-02] MEDS: zinc gluconate 50 mg Tablet PO (08:02)
[2021-05-02] MEDS: benzonatate 100 mg Capsule PO ×3 (08:02→20:51)
[2021-05-02] MEDS: budesonide 0.5 mg/2 mL Neb INHALATION ×2 (08:25→19:41)
[2021-05-02 08:35] LABS: Glucose Point of Care 142 mg/dL (70-110)
[2021-05-02] MEDS: lactulose oral liq 20 gm/30 mL UDC 15 GM PO (09:25)
[2021-05-02] MEDS: heparin drip 25,000 UNIT/500 ML PREMIX 34 UNIT IV (09:27)
--- NOTE | 2021-05-02 09:31 | PC.CHAP ---
Pastoral Care Encounter/Spiritual Assessment Type of Contact [] Declined shuttlecock feather trimmer visit [] Patient/Family/Request visit [] Outpatient visit [] Follow-up visit [] Physician referral [] Code/Alert [x Routine visit [] Staff referral [] Actively dying [] Patient sleeping [] Family support [] [] Out of room [] Palliative care [] [x] Receiving care in room [] Pre-surgical visit [] Trauma [] Long length of stay [x] ICU visit [] Other: Relational/Emotional Strength [] Patient feels connected with others/family/visitors/staff [] Distress [] Loneliness/isolation [] Abandonment Spirituality of Patient [] Person of Kelly [] Attends Faith of their Kelly [] Believes in Prayer [] Reads Bible or Anabaptist materials [] There are Spiritual issues to be addressed Passenger Barge Master Interventions [x] Prayer [] Active listening [] Non-anxious presence [] Spiritual/emotional support [] Crisis/trauma care [] Spiritual counseling [] Bereavement support [] Provided bereavement packet [] Provided Bible/devotional materials [] Provided toy/stuffed animal, coloring book to patient or family member [] Provided Communion [] Anointing/[place] [] Salvation [x] Completed spiritual assessment [] Other: Impact on Illness or Injury [] Angry [] Fearful [] Anxious [] Often cries [] Exhaustion [] Unable to work [] Unable to attend yazidism [] Unable to walk/stand [] Unable to read [] Unable to drive [] Unable to eat/drink [] Unable to sleep [] Unable to be with family [] Patient intubated [] Other: Summary Time spent with patient
[2021-05-02 10:08] LABS: Platelet Count 285 10^3/cmm (130-400)
[2021-05-02 10:10] LABS: Alanine Aminotransferase 79 U/L (0-41); Albumin Level 3.4 g/dL (3.5-5.2); Alkaline Phosphatase 142 IU/L (40-130); Anion Gap 16.4 (5-19); Aspartate Amino Transferase 75 U/L (0-40); Blood Urea Nitrogen 33 mg/dL (6-20); Calcium 8.1 mg/dL (8.5-10.5); Carbon Dioxide 26 mmol/L (22-29); Chloride 100 mmol/L (98-107); Globulin 2.9 g/dL (1.3-4.6); Glomerular Filtration Rate 76.5 mL/min (90-130); Glucose 143 mg/dL (65-115); Osmolality Calculated 296 mOsm/kg (285-295); Potassium 4.4 mmol/L (3.5-5.1); Sodium 138 mmol/L (136-145); Total Bilirubin 1.1 mg/dL (0.15-1.2); Total Protein 6.3 g/dL (6.6-8.7)
--- NOTE | 2021-05-02 10:42 | P.PN_ITS ---
Subjective Subjective: Interval history: No concerns overnight. Denies any nausea vomiting, headache. States he is feeling better today. Currently on 60 L 70% FiO2 saturating 92%. Heart rate better controlled during the night. Currently during examination 120s beats per minute, sinus rhythm. Has remained hemodynamically stable. Complaining of constipation. States his appetite is better, working well incentive spirometer and flutter valve. Was sitting up in chair for most of the day yesterday. Again during examination sitting up in the chair. Patient doing well with GI soft diet. Medications: Reviewed: Yes Vitals/I&O/Wt Last Vital Signs Temp 97.8 F 05/02/21 08:00 Pulse 117 H 05/02/21 10:00 Resp 26 H 05/02/21 10:00 BP 111/80 05/02/21 10:00 Pulse Ox 96 05/02/21 10:00 05/01/21 05/02/21 05/02/21 22:59 06:59 14:59 Intake Total 453.626 / 1353.626 104 / 1457.626 220 / 220 Output Total 950 / 2250 100 / 2350 Balance -496.374 / -896.374 4 / -892.374 220 / 220 Weight last 48 hrs Weight 120.344 kg Weight 119.89 kg Physical Exam Narrative: EXAM NARRATIVE: General: No acute distress, AO x3 on heated high flow, tired appearing HEENT: PERRLA, pupils bilaterally equal and reactive Chest: Normal vesicular breath sounds, bilateral diffuse crackles present. equal good air entry bilaterally CVS: S1-S2 regular, no murmurs, no tachycardia, no gallops, no rubs Abdomen: Soft, nontender, no organomegaly, bowel sounds present Neuro: No focal deficits, no facial deformity, AO x3, power 5/5 in all limbs Urinary Catheter Management^: Cristina: Cath Placed During This Visit: yes Reason for Continuing Indwelling Catheter: Accurate Measurement of Urinary Output in Critically Ill Patients Urinary Catheter Date of Insertion: 04/26/21 Urinary Catheter Time of Insertion: 17:38 Data : 05/02/21 03:26 05/02/21 09:05 Micro: Microbiology 05/01/21 11:00 Legionella Urinary Antigen - Final Urine Catheterized 05/01/21 11:00 Bacterial Antigens - Final Urine Kidney 05/01/21 12:10 MRSA Culture - Final Nose 04/26/21 16:45 Blood Culture - Final Blood NO GROWTH AFTER 5 DAYS 04/26/21 16:45 Blood Culture - Final Blood NO GROWTH AFTER 5 DAYS A&P Assessment and plan (1) ARDS (adult respiratory distress syndrome): Status: Acute (2) Pulmonary embolism associated with COVID-19: Status: Acute (3) Pneumonia due to COVID-19 virus: Status: Acute (4) Acute respiratory failure with hypoxia: See above Status: Acute (5) Acute kidney injury: Resolved. Status: Acute (6) Hypertension: Status: Acute Qualifiers: Hypertension type: unspecified Qualified Code(s): I10 - Essential (primary) hypertension (7) Hypothyroidism: continue thyroid hormone. Status: Acute Qualifiers: Hypothyroidism type: unspecified Qualified Code(s): E03.9 - Hypothyroidism, unspecified (8) Hyperlipidemia: Continue statin Status: Acute Qualifiers: Hyperlipidemia type: unspecified Qualified Code(s): E78.5 - Hyperlipidemia, unspecified (9) Gout: Continue allopurinol Status: Acute Qualifiers: Chronicity: chronic Gout etiology: unspecified cause Gout site: unspecified site Presence of tophus: without tophus Qualified Code(s): M1A.9XX0 - Chronic gout, unspecified, without tophus (tophi) Additional A&P Information ARDS secondary to COVID-19 pneumonia: ABG appreciated. Patient post Actemra on April 26. Inflammatory markers trending down. Will plan to hold off on second dose for now. Patient has finished 5 dose of remdesivir. Because patient is requiring high oxygen supplementation and elevated inflammatory markers will give additional 5 days of remdesivir. Day 05/13 today. Continue dexamethasone 6 mg IV daily. DuoNeb every 4 hour, budesonide twice daily. CT concerning for PE. Given high dose of Lovenox requirement we will switch him over to heparin. Last Lovenox dose given at 6 AM. Will start heparin drip from 5 PM. Gonzalo Ferro. Vitamin C, zinc. Aggressive pulmonary toilet with incentive spirometry and flutter valve. We will try to keep patient as negative as possible. Fluid restriction up to 1800 cc. Strict input output charting. Net negative in last 24 hours. Hold off on further Lasix today. Procol, Legionella, bacterial antigen, MRSA swab negative. Continue with ceftriaxone and azithromycin. 05/10. Continue to monitor daily inflammatory markers for now. Precedex drip. We will try to wean as suitable. Hypertension: Goal blood pressure less than 140/90 mmHg. Blood pressures better. For now we will continue to monitor. Continue to hold off on home dose of Norvasc and BRYAN inhibitor. Increase dose of metoprolol to 75 mg twice daily. Full code Heparin drip will help with DVT prophylaxis as well. GI soft diet. Ambulation. Out of bed to chair. Discharge planning: Drip depending on oxygen requirement within the next 2 to 3 days we will plan for discharge to SNF versus LTAC. Attestations Medical Necessity Statement*: Requires hospitalization for management of severe ARDS from COVID-19 pneumonia, pulmonary embolism. Critical Care Time: The high probability of a clinically significant, sudden or life threatening deterioration of the patient's [respiratory] system(s) required my full and direct attention, intervention and personal management. The critical care time is as shown. This time is in addition to time spent performing any reported procedures but includes the following: [x] Data and vital sign review and interpretation [x] Patient assessment, examination and intervention [x] Documentation [x] Medication orders and management Critical Care Time (min): 80 Coding Level of Care Code Acute Butadiene Converter Helper for [facility] Fwd Diagnoses ARDS (adult respiratory distress syndrome) J80 Pulmonary embolism associated with COVID-19 U07.1; I26.99 Pneumonia due to COVID-19 virus U07.1; J12.82 Acute respiratory failure with hypoxia J96.01 Acute kidney injury N17.9 Hypertension I10 Hypertension type: unspecified Hypothyroidism E03.9 Hypothyroidism type: unspecified Hyperlipidemia E78.5 Hyperlipidemia type: unspecified Gout [id number].[id number] Chronicity: chronic Gout etiology: unspecified cause Gout site: unspecified site Presence of tophus: without tophus
--- NOTE | 2021-05-02 11:14 | PC.NURSE ---
Held lasix per Dr jacob orders. Urine output from 7am at the start of this shift till now has been 480 - 1mL/Kg/hr.
[2021-05-02] MEDS: metoprolol tartrate 25 mg Tablet PO (11:16)
[2021-05-02 11:22] LABS: Glucose Point of Care 211 mg/dL (70-110)
--- NOTE | 2021-05-02 13:15 | PM.PN ---
Subjective Subjective: Interval history: -Patient seen at bedside today morning -Appeared comfortable in no new complaints -Currently on high flow 60 L and 70% -Reported no bowel movement yet -Labs and imaging reviewed and pertinent findings incorporated in the assessment and plan Medications: Reviewed: Yes Vitals/I&O/Wt Last Vital Signs Temp 97.8 F 05/02/21 08:00 Pulse 119 H 05/02/21 11:41 Resp 24 H 05/02/21 11:41 BP 111/80 05/02/21 10:00 Pulse Ox 95 05/02/21 11:41 05/01/21 05/02/21 05/02/21 22:59 06:59 14:59 Intake Total 453.626 / 1353.626 104 / 1457.626 220 / 220 Output Total 950 / 2250 100 / 2350 480 / 480 Balance -496.374 / -896.374 4 / -892.374 -260 / -260 Weight last 48 hrs Weight 265 lb 5 oz Weight 264 lb 5 oz Physical Exam Narrative: EXAM NARRATIVE: General: alert, moderate respiratory distress on HFNC 60 L 70% FIO2 HEENT: conj clear, EOMI, PERRL, mmm, Neck: supple, no meningismus Heme: no cervical LAP Pulmonary: Bilateral coarse crackles Cardiovascular: rrr, nl s1s2, no mrg Abdomen: soft, nt, nd, no r/g, bs+ Extremities: pulses +, no edema, no c/c : no CVA tenderness Skin: intact, no rash MSK: no back or neck pain Neurologic: grossly intact Urinary Catheter Management^: Cristina: Cath Placed During This Visit: yes Reason for Continuing Indwelling Catheter: Accurate Measurement of Urinary Output in Critically Ill Patients Urinary Catheter Date of Insertion: 04/26/21 Urinary Catheter Time of Insertion: 17:38 Data : 05/02/21 03:26 05/02/21 09:05 Other Labs: Laboratory Results WBC 15.8 10^3/uL (4.0-10.0) H 05/01/21 06:33 RBC 5.85 10^6/uL (4.1-5.3) H 05/01/21 06:33 Hgb 16.6 g/dL (11.7-16.6) 05/01/21 06:33 Hct 50.9 % (42.0-52.0) 05/01/21 06:33 MCV 87.0 fL (80-94) 05/01/21 06:33 MCH 28.4 pg (28.0-34.0) 05/01/21 06:33 MCHC 32.6 g/dL (30.0-36.0) 05/01/21 06:33 RDW 13.3 % (12.1-15.1) 05/01/21 06:33 Plt Count 285 10^3/cmm (130-400) 05/02/21 03:26 MPV 9.7 fL (7.4-10.4) 05/01/21 06:33 Neut % (Auto) 72.9 % 05/01/21 06:33 Lymph % (Auto) 16.2 % 05/01/21 06:33 Upson % (Auto) 6.3 % 05/01/21 06:33 Eos % (Auto) 0.3 % 05/01/21 06:33 Baso % (Auto) 0.4 % 05/01/21 06:33 Neut # (Auto) 11.53 10^3/uL (1.8-7.7) H 05/01/21 06:33 Lymph # (Auto) 2.6 10^3/uL (0.8-4.8) 05/01/21 06:33 Upson # (Auto) 1.0 10^3/uL (0.2-0.9) H 05/01/21 06:33 Eos # (Auto) 0.0 10^3/uL (0.0-0.8) 05/01/21 06:33 Baso # (Auto) 0.1 10^3/uL (0.0-0.1) 05/01/21 06:33 Nucleated RBC % (auto) 0.1 % 05/01/21 06:33 Nucleated RBCs # 0.0 /100WBC 05/01/21 06:33 Fibrinogen 298 mg/dL (174-498) 05/02/21 03:26 D-Dimer 6.72 ug/mIFEU (0-0.59) H 05/02/21 03:26 Specimen Type Arterial 04/27/21 01:24 Sample Site Radial, right 04/27/21 01:24 ABG pH 7.41 (7.35-7.45) 04/27/21 01:24 ABG pCO2 36.4 mmHg (35-45) 04/27/21 01:24 ABG pO2 55.7 mmHg (80.0-100.0) L 04/27/21 01:24 ABG HCO3 22.8 mmol/L (22-26) 04/27/21 01:24 ABG O2 Saturation 88.2 04/27/21 01:24 ABG Base Excess -1.5 mmol/L (-2.0-2.0) 04/27/21 01:24 Cliff Test Pos 04/27/21 01:24 A-a O2 Gradient 79.5 mmHg (5-10) H 04/27/21 01:24 Hematocrit 45.2 % (42-52) 04/27/21 01:24 Hgb O2 Saturation 87.1 % (95-100) L 04/27/21 01:24 Carboxyhemoglobin 0.4 %THgb (0.4-20.1) 04/27/21 01:24 Methemoglobin 0.8 % (0.4-1.5) 04/27/21 01:24 Total Hemoglobin 14.7 g/dL (14-18) 04/27/21 01:24 Sodium 139.0 mmol/L (131-143) 04/27/21 01:24 Potassium 3.7 mmol/L (3.5-5.0) 04/27/21 01:24 Glucose 263.0 mg/dL (70-115) H 04/27/21 01:24 Ionized Calcium 1.2 mmol/L (1.1-1.4) 04/27/21 01:24 O2 Delivery Device Bipap 04/27/21 01:24 FiO2 100.0 % 04/27/21 01:24 Bottle Washing Machine Operator ID [email or web address] 04/27/21 01:24 Sodium 138 mmol/L (136-145) 05/02/21 09:05 Potassium 4.4 mmol/L (3.5-5.1) 05/02/21 09:05 Chloride 100 mmol/L (98-107) 05/02/21 09:05 Carbon Dioxide 26 mmol/L (22-29) 05/02/21 09:05 Anion Gap 16.4 (5-19) 05/02/21 09:05 BUN 33 mg/dL (6-20) H 05/02/21 09:05 Creatinine 1.0 mg/dL (0.7-1.2) 05/02/21 09:05 GFR Calculation 76.5 mL/min (90-130) L 05/02/21 09:05 Glucose 143 mg/dL (65-115) H 05/02/21 09:05 POC Glucose 211 mg/dL (70-110) H 05/02/21 11:19 Estimat Average Glucose 154 05/02/21 03:26 Hemoglobin A1c 7.0 % (4.0-6.0) H 05/02/21 03:26 Calculated Osmolality 296 mOsm/kg (285-295) H 05/02/21 09:05 Calcium 8.1 mg/dL (8.5-10.5) L 05/02/21 09:05 Magnesium 2.8 mg/dL (1.7-2.3) H 04/28/21 04:23 Iron 103 ug/dL (59-158) 05/01/21 06:33 TIBC 219 mcg/dl 05/01/21 06:33 % Saturation 47.0 % (20-50) 05/01/21 06:33 Unsat Iron Binding 116 ug/dL (112-347) 05/01/21 06:33 Ferritin 1136 ng/mL (30-400) H 05/02/21 03:26 Total Bilirubin 1.1 mg/dL (0.15-1.2) 05/02/21 09:05 AST 75 U/L (0-40) H 05/02/21 09:05 ALT 79 U/L (0-41) H 05/02/21 09:05 Alkaline Phosphatase 142 IU/L (40-130) H 05/02/21 09:05 Lactate Dehydrogenase 862 U/L (135-225) H 05/02/21 03:26 Creatine Kinase 338 U/L (39-308) H* 05/02/21 03:26 C-Reactive Protein 5.3 mg/L (0.0-4.9) H 05/02/21 03:26 NT-Pro-B Natriuret Pep 212 pg/mL (0-125) H 05/02/21 03:26 Total Protein 6.3 g/dL (6.6-8.7) L 05/02/21 09:05 Albumin 3.4 g/dL (3.5-5.2) L 05/02/21 09:05 Globulin 2.9 g/dL (1.3-4.6) 05/02/21 09:05 Procalcitonin 0.12 ng/mL (0-0.5) 05/01/21 06:33 TSH 1.25 uIU/mL (0.27-4.20) 04/26/21 16:50 Influenza Type A Ag Negative (Negative) 04/26/21 17:00 Influenza Type B Ag Negative (Negative) 04/26/21 17:00 Impressions Chest CTA 05/01/21 07:10 IMPRESSION: 1. Proximal main pulmonary arteries are normal. Poor filling of the right upper lobe pulmonary artery suspicious for pulmonary embolus. Distal subsegmental arteries not well evaluated due to motion artifact. 2. Diffuse hazy bilateral groundglass pulmonary infiltrates throughout both lungs compatible with COVID 19 pneumonia. 3. No focal consolidation or pleural fluid. 4. Cardiomegaly. Discussed with Burton Renae MD at 05/01/2021 11:37 AM[address] Message left for Dr[address] Salmon at 05/01/2021 11:39 AM Chest X-Ray 05/02/21 06:00 IMPRESSION: No interval change is seen. Micro: Microbiology 05/01/21 11:00 Legionella Urinary Antigen - Final Urine Catheterized 05/01/21 11:00 Bacterial Antigens - Final Urine Kidney 05/01/21 12:10 MRSA Culture - Final Nose 04/26/21 16:45 Blood Culture - Final Blood NO GROWTH AFTER 5 DAYS 04/26/21 16:45 Blood Culture - Final Blood NO GROWTH AFTER 5 DAYS A&P Assessment and plan (1) Acute respiratory failure with hypoxia: Status: Acute (2) ARDS (adult respiratory distress syndrome): Status: Acute (3) Pneumonia due to COVID-19 virus: Status: Acute (4) Gout: Status: Acute Qualifiers: Gout site: unspecified site Gout etiology: unspecified cause Chronicity: chronic Presence of tophus: without tophus Qualified Code(s): M1A.9XX0 - Chronic gout, unspecified, without tophus (tophi) (5) Hyperlipidemia: Status: Acute Qualifiers: Hyperlipidemia type: unspecified Qualified Code(s): E78.5 - Hyperlipidemia, unspecified (6) Hypothyroidism: Status: Acute Qualifiers: Hypothyroidism type: unspecified Qualified Code(s): E03.9 - Hypothyroidism, unspecified (7) Hypertension: Status: Acute Qualifiers: Hypertension type: unspecified Qualified Code(s): I10 - Essential (primary) hypertension (8) Acute kidney injury: Status: Acute (9) Pulmonary embolism associated with COVID-19: Status: Acute Overall: 60-year-old male with past medical history of hypertension, hyperlipidemia, hypothyroidism, gout, obesity transferred from outside hospital for acute hypoxic respiratory failure secondary to ARDS due to COVID-19 pneumonia and right upper lobe pulmonary embolism-currently on-HFNC #Acute hypoxic respiratory failure due to ARDS due to COVID-19 pneumonia #Poor filling of the right upper lobe pulmonary artery suspicious for pulmonary embolus. Distal subsegmental arteries not well evaluated due to motion artifact. #MARC based on labs from outside labs sent BUN/creatinine 24/1.6 - saturating 95% on HFNC 50 L and 60% FiO2 -Significantly elevated D-dimer -CTA 05/01/2021: poor filling of the right upper lobe pulmonary artery suspicious for pulmonary embolus. Distal subsegmental arteries not well evaluated due to motion artifact. - bilateral lower extremity venous Doppler-ruled out DVT -Currently on Lovenox therapeutic anticoagulation on 120 every 12-changed to heparin drip, monitor PTT and adjust dose accordingly -on low-dose Precedex for anxiety -Did not tolerate proning or semiproning- -afebrile, WBC 15 K, pro-Tristin 0.12, BNP 816, -Negative bacterial antigen, MRSA undetected, so far bacterial cultures negative -on remdesivir protocol for 5 days on 04/26/21 and dexamethasone 6 mg IV daily -Due to high ferritin and LDH-we will continue 5 more days of remdesivir -Given 1 dose tocilizumab 04/26/21; CRP down to 5 from 75 -DuoNeb nebulizations every 6 hours and budesonide twice daily -Encourage out of bed to chair, incentive spirometry and flutter valve -Started on ceftriaxone & azithromycin 04/26/21 -will complete 7-day course -monitor inflammatory markers every 48 hours; CRP 5 D-dimer 0.83 > 11> 9>6 -BUN/creatinine 26/1.5 at outside facility; today BUN 33 and creatinine 1 -Overall net -3.6 L since admission; maintaining good urine output - improving creatinine, electrolytes within normal limits -Closely monitor SANNA's and renal parameters -held BRYAN inhibitor his home medication -Worsening LFTs -likely due to COVID-19 pneumonia-monitor -Hold Lipitor 20 p.o. daily for hyperlipidemia-in view of worsening LFTs -On allopurinol for his gout -On amlodipine 10 mg daily, metoprolol 75 mg twice daily y, for hypertension -On levothyroxine 50 MCG p.o. every morning for hypothyroidism -Sugars controlled with scale coverage -Pantoprazole 40 mg daily for GI prophylaxis and history of GERD -On heparin drip for PE-we will cover DVT prophylaxis -On liquid diet; plan is to advance as tolerated to soft food -No bowel movements on senna-added lactulose 15 g p.o. every 12 Medical condition and management plan discussed with patient and he verbalized understanding and agreed with the plan. Recommendations conveyed to hospitalist covering the patient Attestations Medical Necessity Statement*: Needs continued hospitalization in the ICU secondary to severe respiratory failure secondary to COVID-19 pneumonia and right upper lobe PE Time Spent in Patient Care: Greater than 35 minutes (>than 50% of time spent in counselling and/or direct pt care on unit). Critical Care Time: The high probability of a clinically significant, sudden or life threatening deterioration of the patient's [respiratory, cardiac, hepatic, infectious, Renal ] system(s) required my full and direct attention, intervention and personal management. The critical care time is as shown. This time is in addition to time spent performing any reported procedures but includes the following: [x] Data and vital sign review and interpretation [x] Patient assessment, examination and intervention [x] Documentation [x] Medication orders and management Critical Care Time (min): 45 Other Attestations: The high probability of a clinically significant, sudden or life threatening deterioration of the patient's [pulmonary, renal] system(s) required my full and direct attention, intervention and personal management. The critical care time is as shown. This time is in addition to time spent performing any reported procedures but includes the following: [x] Data and vital sign review and interpretation [x] Patient assessment, examination and intervention [x] Documentation [x] Medication orders and management Coding Level of Care Code Established Pt Acute Rabies Inspector for Chg Fwd Patient Type Established History Comprehensive Exam Comprehensive Medical Decision Making High Complexity Diagnoses Acute respiratory failure with hypoxia J96.01 ARDS (adult respiratory distress syndrome) J80 Pneumonia due to COVID-19 virus U07.1; J12.82 Gout M1A.9XX0 Gout site: unspecified site Gout etiology: unspecified cause Chronicity: chronic Presence of tophus: without tophus Hyperlipidemia E78.5 Hyperlipidemia type: unspecified Hypothyroidism E03.9 Hypothyroidism type: unspecified Hypertension I10 Hypertension type: unspecified Acute kidney injury N17.9 Pulmonary embolism associated with COVID-19 U07.1; I26.99 Time Spent (min) 45
--- NOTE | 2021-05-02 13:32 | PC.NURSE ---
Nurse OBserved hematiria in catheter line. Nurse alerted Dr jacob and received orders to discontinue Heparin and obtain a PTT
[2021-05-02] MEDS: cefTRIAXone 1,000 MG in sodium chloride 0.9% (plus) 50 ML 100 MG IV (15:27)
[2021-05-02] MEDS: remdesivir 100 MG in sodium chloride 0.9% (100 ml) 100 ML IV (16:31)
[2021-05-02 16:57] LABS: Glucose Point of Care 131 mg/dL (70-110)
[2021-05-02 18:25] LABS: Basophils # 0.1 10^3/uL (0.0-0.1); Basophils % 0.4 %; Eosinophils % 0.1 %; Hematocrit 53.2 % (42.0-52.0); Hemoglobin 17.3 g/dL (11.7-16.6); Lymphocytes # 1.2 10^3/uL (0.8-4.8); Lymphocytes % 6.6 %; Mean Corpuscular HGB Conc 32.5 g/dL (30.0-36.0); Mean Corpuscular Hemoglobin 28.1 pg (28.0-34.0); Mean Corpuscular Volume 86.5 fL (80-94); Mean Platelet Volume 10.1 fL (7.4-10.4); Monocytes # 0.9 10^3/uL (0.2-0.9); Monocytes % 5.1 %; Neutrophils # 15.44 10^3/uL (1.8-7.7); Neutrophils % 84.7 %; Nucleated Red Blood Cells % 0 %; Platelet Count 309 10^3/cmm (130-400); Red Blood Count 6.15 10^6/uL (4.1-5.3); Red Cell Distribution Width 13.2 % (12.1-15.1); White Blood Count 18.2 10^3/uL (4.0-10.0)
[2021-05-02 18:28] LABS: Partial Thromboplastin Time 34.9 SECONDS (23.9-36.7)
--- NOTE | 2021-05-02 18:46 | PC.NURSE ---
Hematuria has resolved. Restarted heparin per protocol per Dr jacob orders. PTT was drawn before the heparin was restarted and results are pending.
--- NOTE | 2021-05-02 19:05 | PC.NURSE ---
Shift SUmmary: Patient started on Heparin today for PE. He did develop hematuria which resolved after heparin was stopped. Heparin was restarted at 1700 per protocol. Patient tolerates movement very poorly. Moving from the chair to bed caused 02 saturation to drop into the 60's and took about 15 minutes to fully recover to the 90's. Catheter has required frequent flushing after the hematuria to remain patent.
[2021-05-02] MEDS: metoprolol tartrate 50 mg Tablet 75 MG PO (20:51)
--- NOTE | 2021-05-02 21:12 | PC.NURSE ---
Assisted pt to bed side commode for bowel movement. Pt tolerated well. Pt had a small loose/brown BM. As I was cleaning him I noticed he had a dime size stage 2 pressure ulcer on his right medial buttocks. Pt also has a stage 1 pressure injury to bilateral medical buttocks.
[2021-05-02 23:11] LABS: Partial Thromboplastin Time 141.2 SECONDS (23.9-36.7)
[2021-05-03] VITALS (60 sets, daily range): BP systolic 87–146; BP diastolic 50–87; PULSE 65–110; RESP 12–39; TEMP 36.4–36.8; O2SAT 85–96; BMI 33.9
[2021-05-03] MEDS: dexmedetomidine 400 MCG in sodium chloride 0.9% (100 ml) 100 ML 9.98 MCG IV ×3 (01:29→23:14)
[2021-05-03] MEDS: ipratropium-albuterol 3 mL Neb INHALATION ×5 (03:35→20:28)
[2021-05-03 04:59] LABS: ABG PCO2 30.6 mmHg (35-45); ABG PH Result 7.46 (7.35-7.45); Alveolar-Arterial Oxygen Gradi 8.4 mmHg (5-10); Base Excess ABG -0.9 mmol/L (-2.0-2.0); Blood Gas Allen Test Pos; Blood Gas Sample Type Arterial; Carboxyhemoglobin 0.6 %THgb (0.4-20.1); HCO3 ABG 21.8 mmol/L (22-26); HGB O2 Sat 83.1 % (95-100); Ionized Calcium Level - ABG 1.1 mmol/L (1.1-1.4); Methemoglobin 0.4 % (0.4-1.5); Oxygen Saturation ABG 83.9; PO2 ABG 47.6 mmHg (80.0-100.0); Potassium Level - ABG 4.4 mmol/L (3.5-5.0); Total Hemoglobin 16.7 g/dL (14-18)
[2021-05-03 05:07] LABS: Oxygen Device HHFNC
[2021-05-03 05:10] LABS: Glucose Point of Care 134 mg/dL (70-110)
[2021-05-03] MEDS: heparin drip 25,000 UNIT/500 ML PREMIX 27 UNIT IV (05:19)
[2021-05-03 05:37] LABS: Basophils # 0.1 10^3/uL (0.0-0.1); Basophils % 0.4 %; Eosinophils # 0.2 10^3/uL (0.0-0.8); Hematocrit 48.5 % (42.0-52.0); Hemoglobin 15.9 g/dL (11.7-16.6); Lymphocytes # 2.3 10^3/uL (0.8-4.8); Lymphocytes % 13.8 %; Mean Corpuscular HGB Conc 32.8 g/dL (30.0-36.0); Mean Corpuscular Hemoglobin 28.3 pg (28.0-34.0); Mean Corpuscular Volume 86.5 fL (80-94); Mean Platelet Volume 10.4 fL (7.4-10.4); Monocytes # 1.2 10^3/uL (0.2-0.9); Monocytes % 7.1 %; Neutrophils # 12.78 10^3/uL (1.8-7.7); Neutrophils % 75.1 %; Nucleated Red Blood Cells % 0 %; Platelet Count 282 10^3/cmm (130-400); Red Blood Count 5.61 10^6/uL (4.1-5.3); Red Cell Distribution Width 13.2 % (12.1-15.1)
[2021-05-03 05:54] LABS: Fibrinogen 278 mg/dL (174-498)
[2021-05-03] MEDS: levothyroxine 50 mcg Tablet PO (05:58)
[2021-05-03] MEDS: aspirin 81 mg EC Tablet PO (05:58)
[2021-05-03 05:59] LABS: Alanine Aminotransferase 77 U/L (0-41); Alkaline Phosphatase 115 IU/L (40-130); Anion Gap 14.4 (5-19); Aspartate Amino Transferase 58 U/L (0-40); Blood Urea Nitrogen 30 mg/dL (6-20); C Reactive Protein 3.7 mg/L (0.0-4.9); Calcium 7.9 mg/dL (8.5-10.5); Carbon Dioxide 24 mmol/L (22-29); Chloride 102 mmol/L (98-107); Creatine Phosphokinase 304 U/L (39-308); Globulin 2.7 g/dL (1.3-4.6); Glomerular Filtration Rate 68.5 mL/min (90-130); Glucose 117 mg/dL (65-115); Lactate Dehydrogenase 826 U/L (135-225); NT Pro B Type Natriuretic Pept 122 pg/mL (0-125); Osmolality Calculated 289 mOsm/kg (285-295); Potassium 4.4 mmol/L (3.5-5.1); Sodium 136 mmol/L (136-145); Total Bilirubin 0.9 mg/dL (0.15-1.2); Total Protein 5.7 g/dL (6.6-8.7)
[2021-05-03 06:11] LABS: Partial Thromboplastin Time 173.1 SECONDS (23.9-36.7)
[2021-05-03 06:36] LABS: CKMB 4.9 ng/mL (0-10.4)
[2021-05-03 06:48] LABS: Ferritin 1443 ng/mL (30-400)
--- NOTE | 2021-05-03 07:34 | PC.NURSE ---
PTT: This nurse called lab about the redraw ( due to critical result, need a re-check ), order in at 0722. On their way to draw.
--- NOTE | 2021-05-03 07:45 | PC.NURSE ---
Pt OOB to chair. O2 sats at 89%. Pt frustrated. He needs encouragement. He is able to get 1500 on IS. He prepares by huffing through his mouth before the IS. Encouraged pt to breath through his nose wear the O2 is, to limit the mouth breath for ONLY the IS exercise. Pt verbalized understanding but needs to be monitored and reinforced.
[2021-05-03] MEDS: budesonide 0.5 mg/2 mL Neb INHALATION ×2 (07:56→20:28)
--- NOTE | 2021-05-03 08:45 | PC.NURSE ---
PTT: Lab her for redraw ordered at 0622.
[2021-05-03] MEDS: ascorbic acid 500 mg Tablet 1000 MG PO ×2 (08:56→18:32)
[2021-05-03] MEDS: allopurinol 100 mg Tablet PO (08:56)
[2021-05-03] MEDS: benzonatate 100 mg Capsule PO ×3 (08:56→21:01)
[2021-05-03] MEDS: azithromycin 250 mg Tablet 500 MG PO (08:56)
[2021-05-03] MEDS: ferrous gluconate 324 mg Tablet PO ×2 (08:57→18:33)
[2021-05-03] MEDS: zinc gluconate 50 mg Tablet PO (08:57)
[2021-05-03] MEDS: dexamethasone 4 mg/mL INJ 6 MG IVP (08:57)
[2021-05-03] MEDS: pantoprazole DR 40 mg Tablet PO (08:57)
[2021-05-03] MEDS: metoprolol tartrate 50 mg Tablet 75 MG PO ×2 (08:59→21:01)
--- NOTE | 2021-05-03 09:38 | PC.CHAP ---
Pastoral Care Encounter/Spiritual Assessment Type of Contact [] Declined fur operator visit [] Patient/Family/Request visit [] Outpatient visit [] Follow-up visit [] Physician referral [] Code/Alert [x] Routine visit [] Staff referral [] Actively dying [] Patient sleeping [] Family support [] [] Out of room [] Palliative care [] [] Receiving care in room [] Pre-surgical visit [] Trauma [] Long length of stay [x] ICU visit [x] Other: isolated Relational/Emotional Strength [] Patient feels connected with others/family/visitors/staff [] Distress [] Loneliness/isolation [] Abandonment Spirituality of Patient [] Person of Kelly [] Attends Presybeterian of their Kelly [] Believes in Prayer [] Reads Bible or Faith materials [] There are Spiritual issues to be addressed Glass Smoother Interventions [x] Prayer [] Active listening [] Non-anxious presence [] Spiritual/emotional support [] Crisis/trauma care [] Spiritual counseling [] Bereavement support [] Provided bereavement packet [] Provided Bible/devotional materials [] Provided toy/stuffed animal, coloring book to patient or family member [] Provided Communion [] Anointing/[place] [] Salvation [x] Completed spiritual assessment [] Other: Impact on Illness or Injury [] Angry [] Fearful [] Anxious [] Often cries [] Exhaustion [] Unable to work [] Unable to attend mandaen [] Unable to walk/stand [] Unable to read [] Unable to drive [] Unable to eat/drink [] Unable to sleep [] Unable to be with family [] Patient intubated [] Other: Summary Time spent with patient
--- NOTE | 2021-05-03 10:34 | PC.NURSE ---
Attempted to zabrina Hines, with update. Mailbox full, unable to leave message at this time.
--- NOTE | 2021-05-03 10:40 | PC.NURSE ---
Nikia Hines returned phone call, gave her a very brief update then Dr Snell requested to speak to her, call transferred to Dr Snell.
[2021-05-03] MEDS: citalopram 20 mg Tablet PO (11:23)
[2021-05-03] MEDS: FUROsemide 10 mg/mL SDV 4mL 40 MG IVP (11:23)
[2021-05-03 11:27] LABS: Procalcitonin 0.13 ng/mL (0-0.5)
[2021-05-03 11:47] LABS: Glucose Point of Care 156 mg/dL (70-110)
[2021-05-03] MEDS: fluconazole 100 mg Tablet PO (12:18)
--- NOTE | 2021-05-03 15:28 | PC.NURSE ---
Nikia Yu, called for an update. Pt resting soundly with his eyes closed. he is lying on his left side. O2 sats 96% at this time.. He is comfortable and not stressing out now.
[2021-05-03 16:37] LABS: Partial Thromboplastin Time 85.1 SECONDS (23.9-36.7)
[2021-05-03] MEDS: remdesivir 100 MG in sodium chloride 0.9% (100 ml) 100 ML IV (17:11)
--- NOTE | 2021-05-03 17:36 | P.PN_ITS ---
Subjective Subjective: Interval history: Overnight patient's oxygen requirement has gone up. Currently is on 100% FiO2 saturating 92%. Had a long discussion with patient today morning. Seen multiple times. On examination sitting in chair. Depressed and frustrated with hospital course. He states he is feeling okay otherwise. Trying to work with incentive spirometry but states is not able to work with Acapella as he thinks it is working the other way. We discussed that both incentive spirometry and Acapella are most important for him right now for pulmonary rehab. We also discussed im portance of being in prone for semiprone position which ever is most comfortable for him for better oxygenation. He verbalized understanding and states he will try to do the same. Also discussed that he is really depressed right now given the fact that he is usually very mobile and active He is not able to do anything. We discussed about starting Celexa and he is agreeable to the same. He states his appetite is appropriate he denies any nausea vomiting, headache, dizziness. Has remained hemodynamic stable and afebrile. Medications: Reviewed: Yes Vitals/I&O/Wt Last Vital Signs Temp 98.2 F 05/03/21 08:00 Pulse 74 05/03/21 17:02 Resp 25 H 05/03/21 17:02 BP 102/59 05/03/21 14:30 Pulse Ox 87 L 05/03/21 17:02 05/03/21 05/03/21 05/03/21 06:59 14:59 22:59 Intake Total 659.999 / 1873.966 934.950 / 934.950 133 / 1067.950 Output Total 600 / 1450 Balance 59.999 / 423.966 934.950 / 934.950 133 / 1067.950 Weight last 48 hrs Weight 113.455 kg Weight 120.344 kg Physical Exam Narrative: EXAM NARRATIVE: General: No acute distress, AO x3 on heated high flow, tired appearing HEENT: PERRLA, pupils bilaterally equal and reactive Chest: Normal vesicular breath sounds, bilateral diffuse crackles present. equal good air entry bilaterally CVS: S1-S2 regular, no murmurs, no tachycardia, no gallops, no rubs Abdomen: Soft, nontender, no organomegaly, bowel sounds present Neuro: No focal deficits, no facial deformity, AO x3, power 5/5 in all limbs Urinary Catheter Management^: Cristina: Cath Placed During This Visit: yes, but has since been removed by the nurse Reason for Continuing Indwelling Catheter: Accurate Measurement of Urinary Output in Critically Ill Patients Urinary Catheter Date of Insertion: 05/02/21 Urinary Catheter Time of Insertion: 21:18 Date Urinary Catheter Removed: 05/02/21 Time Urinary Catheter Discontinued: 21:17 Data : 05/03/21 04:40 05/03/21 04:40 A&P Assessment and plan (1) ARDS (adult respiratory distress syndrome): Status: Acute (2) Pulmonary embolism associated with COVID-19: Status: Acute (3) Pneumonia due to COVID-19 virus: Status: Acute (4) Acute respiratory failure with hypoxia: See above Status: Acute (5) Acute kidney injury: Resolved. Status: Acute (6) Hypertension: Status: Acute Qualifiers: Hypertension type: unspecified Qualified Code(s): I10 - Essential (primary) hypertension (7) Hypothyroidism: continue thyroid hormone. Status: Acute Qualifiers: Hypothyroidism type: unspecified Qualified Code(s): E03.9 - Hypot hyroidism, unspecified (8) Hyperlipidemia: Continue statin Status: Acute Qualifiers: Hyperlipidemia type: unspecified Qualified Code(s): E78.5 - Hyperlipidemia, unspecified (9) Gout: Continue allopurinol Status: Acute Qualifiers: Gout site: unspecified site Gout etiology: unspecified cause Chronicity: chronic Presence of tophus: without tophus Qualified Code(s): M1A.9XX0 - Chronic gout, unspecified, without tophus (tophi) Additional A&P Information ARDS secondary to COVID-19 pneumonia: ABG appreciated. Patient post Actemra on April 26. Inflammatory markers still high. As patient is still requiring high amount of oxygen supplementation even going higher today will give 1 more dose of Actemra today. Confirm with Dr. Durand. Patient has finished 5 dose of remdesivir. Because patient is requiring high oxygen supplementation and elevated inflammatory markers will give additional 5 days of remdesivir. Day 8/10 today. Continue dexamethasone 6 mg IV daily. DuoNeb every 4 hour, budesonide twice daily. CT concerning for PE. Given high dose of Lovenox requirement we will switch him over to heparin. Last Lovenox dose given at 6 AM. Will start heparin drip from 5 PM. Tessalon Perles. Vitamin C, zinc. Aggressive pulmonary toilet with incentive spirometry and flutter valve. We will try to keep patient as negative as possible. Repeat 1 more dose of Lasix today 40 mg IV. Fluid restriction up to 1800 cc. Strict input output charting. Net negative in last 24 hours. Procol, Legionella, bacterial antigen, MRSA swab negative. Stop structures tiredness and he has had a 7-day course. Repeat procalcitonin still negative . Continue with azithromycin. Continue to monitor daily inflammatory markers for now. Precedex drip. We will try to wean as suitable. Start patient on Celexa. Hypertension: Goal blood pressure less than 140/90 mmHg. Blood pressures better. For now we will continue to monitor. Continue to hold off on home dose of Norvasc and BRYAN inhibitor. Increase dose of metoprolol to 75 mg twice daily. Full code Heparin drip will help with DVT prophylaxis as well. GI soft diet. Ambulation. Out of bed to chair. Discharge planning: Drip depending on oxygen requirement within the next 2 to 3 days we will plan for discharge to SNF versus LTAC. Attestations Medical Necessity Statement*: Patient requires further hospitalization for management of severe ARDS from COVID-19 pneumonia, multiple pulmonary embolism. Critical Care Time: The high probability of a clinically significant, sudden or life threatening deterioration of the patient's [respiratory] system(s) req uired my full and direct attention, intervention and personal management. The critical care time is as shown. This time is in addition to time spent performing any reported procedures but includes the following: [x] Data and vital sign review and interpretation [x] Patient assessment, examination and intervention [x] Documentation [x] Medication orders and management Critical Care Time (min): 80 Coding Level of Care Code Acute Sole Leveler Machine for [facility] Fwd Diagnoses ARDS (adult respiratory distress syndrome) J80 Pulmonary embolism associated with COVID-19 U07.1; I26.99 Pneumonia due to COVID-19 virus U07.1; J12.82 Acute respiratory failure with hypoxia J96.01 Acute kidney injury N17.9 Hypertension I10 Hypertension type: unspecified Hypothyroidism E03.9 Hypothyroidism type: unspecified Hyperlipidemia E78.5 Hyperlipidemia type: unspecified Gout [id number].[id number] Gout site: unspecified site Gout etiology: unspecified cause Chronicity: chronic Presence of tophus: without tophus
[2021-05-03 17:37] LABS: Glucose Point of Care 231 mg/dL (70-110)
--- NOTE | 2021-05-03 19:00 | PC.NURSE ---
Shift summary: Pt's O2 sats have varied 82% to 96%. HHF settings 60 liters and 100%. His O2 sats were the best when he was lying left lateral resting soundly, with his eyes closed in bed. He had deep even breaths then as well. He was in this position 3-4 hours this afternoon. He has been sitting up in chair breakfast time to after lunch, then back up again at dinner time. He tolerates that well, per him, but his O2 sats stay around 89-91%. HIs lungs sound clear except for the right upper lobe whcih is very diminished. He received a dose of Tocilizumab today. He received another dose of Remdesivir. Precedex gtt remains at 0.3mcg/kg/hr. Heparin gtt now infusing at 15ml/hr, next PTT due at 2200. He received 40mg of Lasix today. His urine output was 1350ml. At end of this shift urine noted to have a slight pink tinge. The redness, that he had this past weekend, in the whites of his eyes are gone. Pt has been getting very down and frustrated, so spoke with pt, Joe started today.
--- NOTE | 2021-05-03 19:25 | PC.NURSE ---
Report given to EUNICE Stevens.
[2021-05-03 21:34] LABS: Glucose Point of Care 114 mg/dL (70-110)
--- NOTE | 2021-05-03 21:36 | P.PN_ITS ---
Subjective Subjective: Interval history: -Patient seen at bedside today morning -FiO2 on high flow increased to 95% -Patient appeared comfortable and complaint of some respiratory discomfort -No more hematuria and was started on heparin GTT today morning -Labs and imaging reviewed and pertinent findings incorporated in assessment and plan Medications: Reviewed: Yes Vitals/I&O/Wt Last Vital Signs Temp 97.5 F L 05/03/21 18:00 Pulse 77 05/03/21 20:54 Resp 24 H 05/03/21 20:30 BP 94/54 05/03/21 17:30 Pulse Ox 87 L 05/03/21 20:30 05/03/21 05/03/21 05/03/21 06:59 14:59 22:59 Intake Total 659.999 / 4812.307 6626.950 / 1034.950 233 / 1267.950 Output Total 600 / 1450 1350 / 1350 Balance 59.999 / 324.110 9454.950 / 1034.950 -1117 / -82.050 Weight last 48 hrs Weight 250 lb 2 oz Weight 265 lb 5 oz Physical Exam Narrative: EXAM NARRATIVE: General: alert, moderate respiratory distress on HFNC 60 L 95% FIO2 HEENT: conj clear, EOMI, PERRL, mmm, Neck: supple, no meningismus Heme: no cervical LAP Pulmonary: Clear bilateral air entry Cardiovascular: rrr, nl s1s2, no mrg Abdomen: soft, nt, nd, no r/g, bs+ Extremities: pulses +, no edema, no c/c : no CVA tenderness Skin: intact, no rash MSK: no back or neck pain Neurologic: grossly intact Urinary Catheter Management^: Cristina: Cath Placed During This Visit: yes, but has since been removed by the nurse Reason for Continuing Indwelling Catheter: Accurate Measurement of Urinary Output in Critically Ill Patients Urinary Catheter Date of Insertion: 05/02/21 Urinary Catheter Time of Insertion: 21:18 Date Urinary Catheter Removed: 05/02/21 Time Urinary Catheter Discontinued: 21:17 Data : 05/03/21 04:40 05/03/21 04:40 Other Labs: Laboratory Results WBC 17.0 10^3/uL (4.0-10.0) H 05/03/21 04:40 RBC 5.61 10^6/uL (4.1-5.3) H 05/03/21 04:40 Hgb 15.9 g/dL (11.7-16.6) 05/03/21 04:40 Hct 48.5 % (42.0-52.0) 05/03/21 04:40 MCV 86.5 fL (80-94) 05/03/21 04:40 MCH 28.3 pg (28.0-34.0) 05/03/21 04:40 MCHC 32.8 g/dL (30.0-36.0) 05/03/21 04:40 RDW 13.2 % (12.1-15.1) 05/03/21 04:40 Plt Count 282 10^3/cmm (130-400) 05/03/21 04:40 MPV 10.4 fL (7.4-10.4) 05/03/21 04:40 Neut % (Auto) 75.1 % 05/03/21 04:40 Lymph % (Auto) 13.8 % 05/03/21 04:40 [place] % (Auto) 7.1 % 05/03/21 04:40 Eos % (Auto) 1.0 % 05/03/21 04:40 Baso % (Auto) 0.4 % 05/03/21 04:40 Neut # (Auto) 12.78 10^3/uL (1.8-7.7) H 05/03/21 04:40 Lymph # (Auto) 2.3 10^3/uL (0.8-4.8) 05/03/21 04:40 [place] # (Auto) 1.2 10^3/uL (0.2-0.9) H 05/03/21 04:40 Eos # (Auto) 0.2 10^3/uL (0.0-0.8) 05/03/21 04:40 Baso # (Auto) 0.1 10^3/uL (0.0-0.1) 05/03/21 04:40 Nucleated RBC % (auto) 0 % 05/03/21 04:40 Nucleated RBCs # 0.0 /100WBC 05/03/21 04:40 APTT 85.1 SECONDS (23.9-36.7) H 05/03/21 15:44 Fibrinogen 278 mg/dL (174-498) 05/03/21 04:40 D-Dimer 3.90 ug/mIFEU (0-0.59) H 05/03/21 04:40 Specimen Type Arterial 05/03/21 04:55 Sample Site Not Reportable 05/03/21 04:55 ABG pH 7.46 (7.35-7.45) H 05/03/21 04:55 ABG pCO2 30.6 mmHg (35-45) L 05/03/21 04:55 ABG pO2 47.6 mmHg (80.0-100.0) L 05/03/21 04:55 ABG HCO3 21.8 mmol/L (22-26) L 05/03/21 04:55 ABG O2 Saturation 83.9 05/03/21 04:55 ABG Base Excess -0.9 mmol/L (-2.0-2.0) 05/03/21 04:55 Cliff Test Pos 05/03/21 04:55 A-a O2 Gradient 8.4 mmHg (5-10) 05/03/21 04:55 Hematocrit 51.0 % (42-52) 05/03/21 04:55 Hgb O2 Saturation 83.1 % (95-100) L 05/03/21 04:55 Carboxyhemoglobin 0.6 %THgb (0.4-20.1) 05/03/21 04:55 Methemoglobin 0.4 % (0.4-1.5) 05/03/21 04:55 Total Hemoglobin 16.7 g/dL (14-18) 05/03/21 04:55 Sodium 138.0 mmol/L (131-143) 05/03/21 04:55 Potassium 4.4 mmol/L (3.5-5.0) 05/03/21 04:55 Glucose 109.0 mg/dL (70-115) 05/03/21 04:55 Ionized Calcium 1.1 mmol/L (1.1-1.4) 05/03/21 04:55 O2 Delivery Device Hhfnc 05/03/21 04:55 FiO2 100.0 % 04/27/21 01:24 General Science Teacher ID Hinja 05/03/21 04:55 Sodium 136 mmol/L (136-145) 05/03/21 04:40 Potassium 4.4 mmol/L (3.5-5.1) 05/03/21 04:40 Chloride 102 mmol/L (98-107) 05/03/21 04:40 Carbon Dioxide 24 mmol/L (22-29) 05/03/21 04:40 Anion Gap 14.4 (5-19) 05/03/21 04:40 BUN 30 mg/dL (6-20) H 05/03/21 04:40 Creatinine 1.1 mg/dL (0.7-1.2) 05/03/21 04:40 GFR Calculation 68.5 mL/min (90-130) L 05/03/21 04:40 Glucose 117 mg/dL (65-115) H 05/03/21 04:40 POC Glucose 114 mg/dL (70-110) H 05/03/21 21:10 Estimat Average Glucose 154 05/02/21 03:26 Hemoglobin A1c 7.0 % (4.0-6.0) H 05/02/21 03:26 Calculated Osmolality 289 mOsm/kg (285-295) 05/03/21 04:40 Calcium 7.9 mg/dL (8.5-10.5) L 05/03/21 04:40 Magnesium 2.8 mg/dL (1.7-2.3) H 04/28/21 04:23 Iron 103 ug/dL (59-158) 05/01/21 06:33 TIBC 219 mcg/dl 05/01/21 06:33 % Saturation 47.0 % (20-50) 05/01/21 06:33 Unsat Iron Binding 116 ug/dL (112-347) 05/01/21 06:33 Ferritin 1443 ng/mL (30-400) H 05/03/21 04:40 Total Bilirubin 0.9 mg/dL (0.15-1.2) 05/03/21 04:40 AST 58 U/L (0-40) H 05/03/21 04:40 ALT 77 U/L (0-41) H 05/03/21 04:40 Alkaline Phosphatase 115 IU/L (40-130) 05/03/21 04:40 Lactate Dehydrogenase 826 U/L (135-225) H 05/03/21 04:40 Creatine Kinase 304 U/L (39-308) 05/03/21 04:40 CK-MB (CK-2) 4.9 ng/mL (0-10.4) 05/03/21 04:40 CK-MB (CK-2) Rel Index % (0.0-5.3) 05/03/21 04:40 C-Reactive Protein 3.7 mg/L (0.0-4.9) 05/03/21 04:40 NT-Pro-B Natriuret Pep 122 pg/mL (0-125) 05/03/21 04:40 Total Protein 5.7 g/dL (6.6-8.7) L 05/03/21 04:40 Albumin 3.0 g/dL (3.5-5.2) L 05/03/21 04:40 Globulin 2.7 g/dL (1.3-4.6) 05/03/21 04:40 Procalcitonin 0.13 ng/mL (0-0.5) 05/03/21 04:40 TSH 1.25 uIU/mL (0.27-4.20) 04/26/21 16:50 Influenza Type A Ag Negative (Negative) 04/26/21 17:00 Influenza Type B Ag Negative (Negative) 04/26/21 17:00 Impressions Chest CTA 05/01/21 07:10 IMPRESSION: 1. Proximal main pulmonary arteries are normal. Poor filling of the right upper lobe pulmonary artery suspicious for pulmonary embolus. Distal subsegmental arteries not well evaluated due to motion artifact. 2. Diffuse hazy bilateral groundglass pulmonary infiltrates throughout both lungs compatible with COVID 19 pneumonia. 3. No focal consolidation or pleural fluid. 4. Cardiomegaly. Discussed with Burton Renae MD at 05/01/2021 11:37 AM. Message left for Dr. Salmon at 05/01/2021 11:39 AM Chest X-Ray 05/02/21 06:00 IMPRESSION: No interval change is seen. A&P Assessment and plan (1) Acute respiratory failure with hypoxia: Status: Acute (2) ARDS (adult respiratory distress syndrome): Status: Acute (3) Pneumonia due to COVID-19 virus: Status: Acute (4) Gout: Status: Acute Qualifiers: Gout site: unspecified site Gout etiology: unspecified cause Chronicity: chronic Presence of tophus: without tophus Qualified Code(s): M1A.9XX0 - Chronic gout, unspecified, without tophus (tophi) (5) Hyperlipidemia: Status: Acute Qualifiers: Hyperlipidemia type: unspecified Qualified Code(s): E78.5 - Hyperlipidemia, unspecified (6) Hypothyroidism: Status: Acute Qualifiers: Hypothyroidism type: unspecified Qualified Code(s): E03.9 - Hypothyroidism, unspecified (7) Hypertension: Status: Acute Qualifiers: Hypertension type: unspecified Qualified Code(s): I10 - Essential (primary) hypertension (8) Acute kidney injury: Status: Acute (9) Pulmonary embolism associated with COVID-19: Status: Acute Overall: 60-year-old male with past medical history of hypertension, hyperlipidemia, hypothyroidism, gout, obesity transferred from outside hospital for acute hypoxic respiratory failure secondary to ARDS due to COVID-19 pneumonia and right upper lobe pulmonary embolism-currently on-HFNC #Acute hypoxic respiratory failure due to ARDS due to COVID-19 pneumonia #Poor filling of the right upper lobe pulmonary artery suspicious for pulmonary embolus. Distal subsegmental arteries not well evaluated due to motion artifact. #MARC based on labs from outside labs sent BUN/creatinine 24/1.6 - saturating 87% on HFNC 60 L and 100% FiO2 -Significantly elevated D-dimer -CTA 05/01/2021: poor filling of the right upper lobe pulmonary artery suspicious for pulmonary embolus. Distal subsegmental arteries not well evaluated due to motion artifact. - bilateral lower extremity venous Doppler-ruled out DVT -Currently heparin drip, monitor PTT and adjust dose accordingly -on low-dose Precedex for anxiety -Did not tolerate proning or semiproning- -afebrile, WBC 17 K, pro-Tristin 0.12, BNP 816 >>122, -ABG 7.46/30/47/21/83% on 60L and 95% HFNC -Negative bacterial antigen, MRSA undetected, so far bacterial cultures negative -on remdesivir protocol for 5 days on 04/26/21 and dexamethasone 6 mg IV daily -monitor inflammatory markers every 48 hours; CRP 5 D-dimer 0.83 > 11> 9>6 > 3 -Due to high ferritin and LDH-we will continue 5 more days of remdesivir -Given 1 dose tocilizumab 04/26/21; CRP down to 5 from 75 but other inflammatory markers are high and still requiring higher FIO2 - will give 2nd dose of tocilizumab -DuoNeb nebulizations every 6 hours and budesonide twice daily -Encourage out of bed to chair, incentive spirometry and flutter valve -Started on ceftriaxone & azithromycin 04/26/21 -completed 7-day course - Will resend for adams cultures and blood cultures to increasing FIO2 r equirements and leucocytosis -BUN/creatinine 26/1.5 at outside facility; today BUN 33 and creatinine 1 -Overall net -3. L since admission; maintaining good urine output - received 1 dose lasix 40 mg ivp - improving creatinine, electrolytes within normal limits -Closely monitor SANNA's and renal parameters -held BRYAN inhibitor his home medication -Worsening LFTs -likely due to COVID-19 pneumonia-monitor -Hold Lipitor 20 p.o. daily for hyperlipidemia-in view of worsening LFTs -On allopurinol for his gout -On amlodipine 10 mg daily, metoprolol 75 mg twice daily y, for hypertension -On levothyroxine 50 MCG p.o. every morning for hypothyroidism -Sugars controlled with scale coverage -Pantoprazole 40 mg daily for GI prophylaxis and history of GERD -On heparin drip for PE-we will cover DVT prophylaxis -On liquid diet; plan is to advance as tolerated to soft food -4 bowel movements on senna & lactulose 15 g p.o. every 12; held lactulose Medical condition and management plan discussed with patient and he verbalized understanding and agreed with the plan. Recommendations conveyed to hospitalist covering the patient Attestations Medical Necessity Statement*: Needs continued hospitalization in the ICU secondary to severe respiratory failure secondary to COVID-19 pneumonia and right upper lobe PE Time Spent in Patient Care: Greater than 35 minutes (>than 50% of time spent in counselling and/or direct pt care on unit) . Critical Care Time: The high probability of a clinically significant, sudden or life threatening deterioration of the patient's [respiratory, cardiac, hepatic, infectious, Renal ] system(s) required my full and direct attention, intervention and personal management. The critical care time is as shown. This time is in addition to time spent performing any reported procedures but includes the following: [x] Data and vital sign review and interpretation [x] Patient assessment, examination and intervention [x] Documentation [x] Medication orders and management Critical Care Time (min): 45 Coding Level of Care Code Established Pt Acute Drawing Frame Tender for Chg Fwd Patient Type Established History Comprehensive Exam Comprehensive Medical Decision Making High Complexity Diagnoses Acute respiratory failure with hypoxia J96.01 ARDS (adult respiratory distress syndrome) J80 Pneumonia due to COVID-19 virus U07.1; J12.82 Gout M1A.9XX0 Gout site: unspecified site Gout etiology: unspecified cause Chronicity: chronic Presence of tophus: without tophus Hyperlipidemia E78.5 Hyperlipidemia type: unspecified Hypothyroidism E03.9 Hypothyroidism type: unspecified Hypertension I10 Hypertension type: unspecified Acute kidney injury N17.9 Pulmonary embolism associated with COVID-19 U07.1; I26.99 Time Spent (min) 45
[2021-05-03 22:33] LABS: Partial Thromboplastin Time 56.4 SECONDS (23.9-36.7)
[2021-05-04] VITALS (57 sets, daily range): BP systolic 85–172; BP diastolic 56–102; PULSE 68–108; RESP 16–37; TEMP 36.1–36.9; O2SAT 77–94
[2021-05-04] MEDS: ipratropium-albuterol 3 mL Neb INHALATION ×5 (03:36→15:42)
--- NOTE | 2021-05-04 05:03 | PC.NURSE ---
Shift Summary Patient has been appropriate and cooperative all night, has agreed to wear his Bipap at 0130 due to him not able to tolerate the high flow any longer, seems to be tolerating it fine for now, on precidex still to help keep him comfortable. He is alert and oriented and does not complain of any pain. He is on a heparin drip that is currently therapeutic but kinjal 4am labs recently so will have to see what next PTT says. Patient was up in the chair and then was transferred to bed early on, seemed to tolerate that well, He is improving and making small baby steps to progress.
[2021-05-04 05:06] LABS: Basophils % 0.3 %; Eosinophils # 0.1 10^3/uL (0.0-0.8); Eosinophils % 0.9 %; Hematocrit 47.6 % (42.0-52.0); Hemoglobin 15.6 g/dL (11.7-16.6); Lymphocytes # 1.2 10^3/uL (0.8-4.8); Lymphocytes % 8.4 %; Mean Corpuscular HGB Conc 32.8 g/dL (30.0-36.0); Mean Corpuscular Hemoglobin 28.8 pg (28.0-34.0); Mean Corpuscular Volume 87.8 fL (80-94); Mean Platelet Volume 10.3 fL (7.4-10.4); Monocytes % 6.8 %; Neutrophils # 12.19 10^3/uL (1.8-7.7); Neutrophils % 82.2 %; Nucleated Red Blood Cells % 0 %; Platelet Count 236 10^3/cmm (130-400); Red Blood Count 5.42 10^6/uL (4.1-5.3); Red Cell Distribution Width 13.1 % (12.1-15.1); White Blood Count 14.8 10^3/uL (4.0-10.0)
[2021-05-04 05:24] LABS: Alanine Aminotransferase 60 U/L (0-41); Albumin Level 2.8 g/dL (3.5-5.2); Alkaline Phosphatase 120 IU/L (40-130); Anion Gap 14.1 (5-19); Aspartate Amino Transferase 51 U/L (0-40); Blood Urea Nitrogen 31 mg/dL (6-20); Calcium 7.8 mg/dL (8.5-10.5); Carbon Dioxide 24 mmol/L (22-29); Chloride 104 mmol/L (98-107); Globulin 2.6 g/dL (1.3-4.6); Glomerular Filtration Rate 68.5 mL/min (90-130); Glucose 102 mg/dL (65-115); Osmolality Calculated 291 mOsm/kg (285-295); Potassium 5.1 mmol/L (3.5-5.1); Sodium 137 mmol/L (136-145); Total Bilirubin 0.9 mg/dL (0.15-1.2); Total Protein 5.4 g/dL (6.6-8.7)
[2021-05-04 05:26] LABS: Fibrinogen 270 mg/dL (174-498); Partial Thromboplastin Time 45.9 SECONDS (23.9-36.7)
[2021-05-04 05:31] LABS: D Dimer 3.12 ug/mIFEU (0-0.59)
[2021-05-04 05:38] LABS: C Reactive Protein 4.2 mg/L (0.0-4.9); Creatine Phosphokinase 262 U/L (39-308); Lactate Dehydrogenase 901 U/L (135-225); NT Pro B Type Natriuretic Pept 94 pg/mL (0-125)
[2021-05-04] MEDS: heparin drip 25,000 UNIT/500 ML PREMIX 17 UNIT IV (05:40)
[2021-05-04] MEDS: levothyroxine 50 mcg Tablet PO (05:41)
[2021-05-04] MEDS: dexmedetomidine 400 MCG in sodium chloride 0.9% (100 ml) 100 ML 9.98 MCG IV ×2 (05:41→10:07)
[2021-05-04] MEDS: aspirin 81 mg EC Tablet PO (05:41)
[2021-05-04 05:54] LABS: Ferritin 1810 ng/mL (30-400)
--- NOTE | 2021-05-04 06:00 | XR_ITS ---
WS: [id number] Portable AP upright chest, 05/04/2021 Clinical Data: covid Comparison: Portable chest, 05/02/2021. Findings: The bibasilar opacities have increased moderately. The heart remains enlarged. No pneumotho rax is seen. The pulmonary vascularity is not increased. Monitor leads are on the chest wall. XR/XR chest 1V portable [id number] Impression: 1. Increase in bibasilar opacities which may indicate worsening pneumonia. 2. Cardiomegaly.
[2021-05-04 07:24] LABS: Glucose Point of Care 94 mg/dL (70-110)
--- NOTE | 2021-05-04 07:51 | PC.NURSE ---
Pt report received, assessment completed. Pt resting in bed. No s/s of pain. Bipap in place, no issues noted. VSS WNL. Cristina draining freely to BSD. Denies any needs at this time.
--- NOTE | 2021-05-04 08:38 | PM.PN ---
Subjective Subjective: Interval history: patient seen at bedside today morning overnight desaturated to low 80s and was placed on BiPAP 12/800% FiO2 Morning today morning seen saturating 93% -Reported that he is tired but did not appear in respiratory distress -Currently on Precedex 0.3 GTT and heparin drip adjusted based on PTT -Labs and imaging reviewed and pertinent findings incorporated in assessment and plan Medications: Reviewed: Yes Vitals/I&O/Wt Last Vital Signs Temp 97.0 F L 05/04/21 04:00 Pulse 80 05/04/21 06:24 Resp 21 H 05/04/21 06:00 BP 121/78 05/04/21 06:00 Pulse Ox 94 05/04/21 06:24 05/03/21 05/04/21 05/04/21 22:59 06:59 14:59 Intake Total 533 / 1567.950 481.582 / 2049.532 Output Total 1350 / 1350 800 / 2150 Balance -817 / 217.950 -318.418 / -100.468 Weight last 48 hrs Weight 248 lb Weight 250 lb 2 oz Physical Exam Narrative: EXAM NARRATIVE: General: alert, moderate respiratory distress on BiPAP 12/100% FIO2 HEENT: conj clear, EOMI, PERRL, mmm, Neck: supple, no meningismus Heme: no cervical LAP Pulmonary: Bibasilar crackles Cardiovascular: rrr, nl s1s2, no mrg Abdomen: soft, nt, nd, no r/g, bs+ Extremities: pulses +, no edema, no c/c : no CVA tenderness Skin: intact, no rash MSK: no back or neck pain Neurologic: grossly intact Urinary Catheter Management^: Cristina: Cath Placed During This Visit: yes, but has since been removed by the nurse Reason for Continuing Indwelling Catheter: Accurate Measurement of Urinary Output in Critically Ill Patients Urinary Catheter Date of Insertion: 05/02/21 Urinary Catheter Time of Insertion: 21:18 Date Urinary Catheter Removed: 05/02/21 Time Urinary Catheter Discontinued: 21:17 Data : 05/04/21 04:50 05/04/21 04:50 Other Labs: Laboratory Results WBC 14.8 10^3/uL (4.0-10.0) H 05/04/21 04:50 RBC 5.42 10^6/uL (4.1-5.3) H 05/04/21 04:50 Hgb 15.6 g/dL (11.7-16.6) 05/04/21 04:50 Hct 47.6 % (42.0-52.0) 05/04/21 04:50 MCV 87.8 fL (80-94) 05/04/21 04:50 MCH 28.8 pg (28.0-34.0) 05/04/21 04:50 MCHC 32.8 g/dL (30.0-36.0) 05/04/21 04:50 RDW 13.1 % (12.1-15.1) 05/04/21 04:50 Plt Count 236 10^3/cmm (130-400) 05/04/21 04:50 MPV 10.3 fL (7.4-10.4) 05/04/21 04:50 Neut % (Auto) 82.2 % 05/04/21 04:50 Lymph % (Auto) 8.4 % 05/04/21 04:50 [place] % (Auto) 6.8 % 05/04/21 04:50 Eos % (Auto) 0.9 % 05/04/21 04:50 Baso % (Auto) 0.3 % 05/04/21 04:50 Neut # (Auto) 12.19 10^3/uL (1.8-7.7) H 05/04/21 04:50 Lymph # (Auto) 1.2 10^3/uL (0.8-4.8) 05/04/21 04:50 [place] # (Auto) 1.0 10^3/uL (0.2-0.9) H 05/04/21 04:50 Eos # (Auto) 0.1 10^3/uL (0.0-0.8) 05/04/21 04:50 Baso # (Auto) 0.0 10^3/uL (0.0-0.1) 05/04/21 04:50 Nucleated RBC % (auto) 0 % 05/04/21 04:50 Nucleated RBCs # 0.0 /100WBC 05/04/21 04:50 APTT 45.9 SECONDS (23.9-36.7) H 05/04/21 04:50 Fibrinogen 270 mg/dL (174-498) 05/04/21 04:50 D-Dimer 3.12 ug/mIFEU (0-0.59) H 05/04/21 04:50 Specimen Type Arterial 05/03/21 04:55 Sample Site Not Reportable 05/03/21 04:55 ABG pH 7.46 (7.35-7.45) H 05/03/21 04:55 ABG pCO2 30.6 mmHg (35-45) L 05/03/21 04:55 ABG pO2 47.6 mmHg (80.0-100.0) L 05/03/21 04:55 ABG HCO3 21.8 mmol/L (22-26) L 05/03/21 04:55 ABG O2 Saturation 83.9 05/03/21 04:55 ABG Base Excess -0.9 mmol/L (-2.0-2.0) 05/03/21 04:55 Cliff Test Pos 05/03/21 04:55 A-a O2 Gradient 8.4 mmHg (5-10) 05/03/21 04:55 Hematocrit 51.0 % (42-52) 05/03/21 04:55 Hgb O2 Saturation 83.1 % (95-100) L 05/03/21 04:55 Carboxyhemoglobin 0.6 %THgb (0.4-20.1) 05/03/21 04:55 Methemoglobin 0.4 % (0.4-1.5) 05/03/21 04:55 Total Hemoglobin 16.7 g/dL (14-18) 05/03/21 04:55 Sodium 138.0 mmol/L (131-143) 05/03/21 04:55 Potassium 4.4 mmol/L (3.5-5.0) 05/03/21 04:55 Glucose 109.0 mg/dL (70-115) 05/03/21 04:55 Ionized Calcium 1.1 mmol/L (1.1-1.4) 05/03/21 04:55 O2 Delivery Device Hhfnc 05/03/21 04:55 FiO2 100.0 % 04/27/21 01:24 Supply Chain Coordinator ID Hinja 05/03/21 04:55 Sodium 137 mmol/L (136-145) 05/04/21 04:50 Potassium 5.1 mmol/L (3.5-5.1) 05/04/21 04:50 Chloride 104 mmol/L (98-107) 05/04/21 04:50 Carbon Dioxide 24 mmol/L (22-29) 05/04/21 04:50 Anion Gap 14.1 (5-19) 05/04/21 04:50 BUN 31 mg/dL (6-20) H 05/04/21 04:50 Creatinine 1.1 mg/dL (0.7-1.2) 05/04/21 04:50 GFR Calculation 68.5 mL/min (90-130) L 05/04/21 04:50 Glucose 102 mg/dL (65-115) 05/04/21 04:50 POC Glucose 94 mg/dL (70-110) 05/04/21 07:16 Estimat Average Glucose 154 05/02/21 03:26 Hemoglobin A1c 7.0 % (4.0-6.0) H 05/02/21 03:26 Calculated Osmolality 291 mOsm/kg (285-295) 05/04/21 04:50 Calcium 7.8 mg/dL (8.5-10.5) L 05/04/21 04:50 Magnesium 2.8 mg/dL (1.7-2.3) H 04/28/21 04:23 Iron 103 ug/dL (59-158) 05/01/21 06:33 TIBC 219 mcg/dl 05/01/21 06:33 % Saturation 47.0 % (20-50) 05/01/21 06:33 Unsat Iron Binding 116 ug/dL (112-347) 05/01/21 06:33 Ferritin 1810 ng/mL (30-400) H 05/04/21 04:50 Total Bilirubin 0.9 mg/dL (0.15-1.2) 05/04/21 04:50 AST 51 U/L (0-40) H 05/04/21 04:50 ALT 60 U/L (0-41) H 05/04/21 04:50 Alkaline Phosphatase 120 IU/L (40-130) 05/04/21 04:50 Lactate Dehydrogenase 901 U/L (135-225) H 05/04/21 04:50 Creatine Kinase 262 U/L (39-308) 05/04/21 04:50 CK-MB (CK-2) 4.9 ng/mL (0-10.4) 05/03/21 04:40 CK-MB (CK-2) Rel Index % (0.0-5.3) 05/03/21 04:40 C-Reactive Protein 4.2 mg/L (0.0-4.9) 05/04/21 04:50 NT-Pro-B Natriuret Pep 94 pg/mL (0-125) 05/04/21 04:50 Total Protein 5.4 g/dL (6.6-8.7) L 05/04/21 04:50 Albumin 2.8 g/dL (3.5-5.2) L 05/04/21 04:50 Globulin 2.6 g/dL (1.3-4.6) 05/04/21 04:50 Procalcitonin 0.13 ng/mL (0-0.5) 05/03/21 04:40 TSH 1.25 uIU/mL (0.27-4.20) 04/26/21 16:50 Influenza Type A Ag Negative (Negative) 04/26/21 17:00 Influenza Type B Ag Negative (Negative) 04/26/21 17:00 Impressions Chest CTA 05/01/21 07:10 IMPRESSION: 1. Proximal main pulmonary arteries are normal. Poor filling of the right upper lobe pulmonary artery suspicious for pulmonary embolus. Distal subsegmental arteries not well evaluated due to motion artifact. 2. Diffuse hazy bilateral groundglass pulmonary infiltrates throughout both lungs compatible with COVID 19 pneumonia. 3. No focal consolidation or pleural fluid. 4. Cardiomegaly. Discussed with Burton Renae MD at 05/01/2021 11:37 AM. Message left for Dr[address] Salmon at 05/01/2021 11:39 AM Chest X-Ray 05/04/21 06:00 Impression: 1. Increase in bibasilar opacities which may indicate worsening pneumonia. 2. Cardiomegaly. Micro: Microbiology 05/04/21 04:50 Blood Culture - Preliminary Blood SPECIMEN COLLECTED 05/04/21 04:52 Blood Culture - Preliminary Blood SPECIMEN COLLECTED A&P Assessment and plan (1) Acute respiratory failure with hypoxia: Status: Acute (2) ARDS (adult respiratory distress syndrome): Status: Acute (3) Pneumonia due to COVID-19 virus: Status: Acute (4) Gout: Status: Acute Qualifiers: Gout site: unspecified site Gout etiology: unspecified cause Chronicity: chronic Presence of tophus: without tophus Qualified Code(s): M1A.9XX0 - Chronic gout, unspecified, without tophus (tophi) (5) Hyperlipidemia: Status: Acute Qualifiers: Hyperlipidemia type: unspecified Qualified Code(s): E78.5 - Hyperlipidemia, unspecified (6) Hypothyroidism: Status: Acute Qualifiers: Hypothyroidism type: unspecified Qualified Code(s): E03.9 - Hypothyroidism, unspecified (7) Hypertension: Status: Acute Qualifiers: Hypertension type: unspecified Qualified Code(s): I10 - Essential (primary) hypertension (8) Acute kidney injury: Status: Acute (9) Pulmonary embolism associated with COVID-19: Status: Acute Overall: 60-year-old male with past medical history of hypertension, hyperlipidemia, hypothyroidism, gout, obesity transferred from outside hospital for acute hypoxic respiratory failure secondary to ARDS due to COVID-19 pneumonia and right upper lobe pulmonary embolism-currently on-BIPAP #Acute hypoxic respiratory failure due to ARDS due to COVID-19 pneumonia-still requiring high FiO2 #Poor filling of the right upper lobe pulmonary artery suspicious for pulmonary embolus. Distal subsegmental arteries not well evaluated due to motion artifact. #MARC based on labs from outside labs sent BUN/creatinine 24.6 improving - saturating 93% on BiPAP 10/11 100% FiO2 -Significantly elevated D-dimer -CTA 05/01/2021: poor filling of the right upper lobe pulmonary artery suspicious for pulmonary embolus. Distal subsegmental arteries not well evaluated due to motion artifact. - bilateral lower extremity venous Doppler-ruled out DVT -Currently heparin drip, monitor PTT and adjust dose accordingly -on low-dose Precedex for anxiety -Did not tolerate proning or semiproning- -afebrile, WBC 14 K, pro-Tristin 0.12, BNP 816 >>122, -ABG 7.46/30/47/21/83% on 60L and 95% HFNC on 05/03/2021 -Negative bacterial antigen, MRSA undetected, so far bacterial cultures negative -on remdesivir protocol for 5 days on 04/26/21 and dexamethasone 6 mg IV daily -monitor inflammatory markers every 48 hours; CRP 5 D-dimer 0.83 > 11> 9>6 > 3 -Due to high ferritin and LDH-we will continue 5 more days of remdesivir -Given 1 dose tocilizumab 04/26/21; CRP down to 4 from 75 but other inflammatory markers are high and still requiring higher FIO2 - will give 2nd dose of tocilizumab -DuoNeb nebulizations every 6 hours and budesonide twice daily -Encourage out of bed to chair, incentive spirometry and flutter valve -Completed ceftriaxone & azithromycin 04/26/21 -completed 7-day course - Will resend for adams cultures due increasing FIO2 requirements and leucocytosis -BUN/creatinine 26/1.5 at outside facility; today BUN 31 and creatinine 1 -Overall net -3. L since admission; maintaining good urine output - received 1 dose lasix 40 mg ivp - improving creatinine, electrolytes within normal limits -Closely monitor SANNA's and renal parameters -held BRYAN inhibitor his home medication -Deranged LFTs -likely due to COVID-19 pneumonia-monitor -Hold Lipitor 20 p.o. daily for hyperlipidemia-in view of worsening LFTs -On allopurinol for his gout -On amlodipine 10 mg daily, metoprolol 75 mg twice daily y, for hypertension -On levothyroxine 50 MCG p.o. every morning for hypothyroidism -Sugars controlled with scale coverage -Pantoprazole 40 mg daily for GI prophylaxis and history of GERD -On heparin drip for PE- will cover DVT prophylaxis -On liquid diet; plan is to advance as tolerated to soft food -4 bowel movements on senna & lactulose 15 g p.o. every 12; held lactulose -prognosis still critical Clinical impression: Acute hypoxic respiratory failure due to ARDS secondary to Covid pneumonia still requiring 100% FiO2 on BiPAP-all cultures so far negative and completed a 7-day course of Rocephin and azithromycin-to complete extended course of remdesivir for total of 10 days and dexamethasone 10 mg daily-received 1 dose of Tocilizumab and plan is to give second dose of Tocilizumab as there is no clinical improvement and some of the inflammatory markers are still high.-Patient is still very critical and is at risk of intubation. Medical condition and management plan discussed with patient and he verbalized understanding and agreed with the plan. Recommendations conveyed to hospitalist covering the patient Attestations Medical Necessity Statement*: Needs continued hospitalization in the ICU secondary to severe respiratory failure secondary to COVID-19 pneumonia and right upper lobe PE Time Spent in Patient Care: Greater than 35 minutes (>than 50% of time spent in counselling and/or direct pt care on unit). Critical Care Time: The high probability of a clinically significant, sudden or life threatening deterioration of the patient's [respiratory, cardiac, hepatic, infectious, Renal ] system(s) required my full and direct attention, intervention and personal management. The critical care time is as shown. This time is in addition to time spent performing any reported procedures but includes the following: [x] Data and vital sign review and interpretation [x] Patient assessment, examination and intervention [x] Documentation [x] Medication orders and management Critical Care Time (min): 45 Coding Level of Care Code Established Pt Acute Java Oracle Developer for Chg Fwd Patient Type Established History Comprehensive Exam Comprehensive Medical Decision Making High Complexity Diagnoses Acute respiratory failure with hypoxia J96.01 ARDS (adult respiratory distress syndrome) J80 Pneumonia due to COVID-19 virus U07.1; J12.82 Gout M1A.9XX0 Gout site: unspecified site Gout etiology: unspecified cause Chronicity: chronic Presence of tophus: without tophus Hyperlipidemia E78.5 Hyperlipidemia type: unspecified Hypothyroidism E03.9 Hypothyroidism type: unspecified Hypertension I10 Hypertension type: unspecified Acute kidney injury N17.9 Pulmonary embolism associated with COVID-19 U07.1; I26.99 Time Spent (min) 45
[2021-05-04] MEDS: ferrous gluconate 324 mg Tablet PO ×2 (09:07→15:44)
[2021-05-04] MEDS: dexamethasone 4 mg/mL INJ 6 MG IVP (09:07)
[2021-05-04] MEDS: citalopram 20 mg Tablet PO (09:07)
[2021-05-04] MEDS: fluconazole 100 mg Tablet PO (09:07)
[2021-05-04] MEDS: allopurinol 100 mg Tablet PO (09:07)
[2021-05-04] MEDS: azithromycin 250 mg Tablet 500 MG PO (09:07)
[2021-05-04] MEDS: pantoprazole DR 40 mg Tablet PO (09:07)
[2021-05-04] MEDS: benzonatate 100 mg Capsule PO ×2 (09:07→15:42)
[2021-05-04] MEDS: zinc gluconate 50 mg Tablet PO (09:07)
--- NOTE | 2021-05-04 09:07 | PC.CHAP ---
Pastoral Care Encounter/Spiritual Assessment Type of Contact [] Declined barrel roller visit [] Patient/Family/Request visit [] Outpatient visit [] Follow-up visit [] Physician referral [] Code/Alert [x] Routine visit [] Staff referral [] Actively dying [] Patient sleeping [] Family support [] [] Out of room [] Palliative care [] [x] Receiving care in room [] Pre-surgical visit [] Trauma [] Long length of stay [x] ICU visit [] Other: setting up... ventilator Relational/Emotional Strength [] Patient feels connected with others/family/visitors/staff [] Distress [] Loneliness/isolation [] Abandonment Spirituality of Patient [] Person of Kelly [] Attends Druze of their Kelly [] Believes in Prayer [] Reads Bible or Jew materials [] There are Spiritual issues to be addressed Dock Manager Interventions [x] Prayer [] Active listening [] Non-anxious presence [] Spiritual/emotional support [] Crisis/trauma care [] Spiritual counseling [] Bereavement support [] Provided bereavement packet [] Provided Bible/devotional materials [] Provided toy/stuffed animal, coloring book to patient or family member [] Provided Communion [] Anointing/[place] [] Salvation [x] Completed spiritual assessment [] Other: Impact on Illness or Injury [] Angry [] Fearful [] Anxious [] Often cries [] Exhaustion [] Unable to work [] Unable to attend anabaptism [] Unable to walk/stand [] Unable to read [] Unable to drive [] Unable to eat/drink [] Unable to sleep [] Unable to be with family [] Patient intubated [] Other: Summary Time spent with patient
[2021-05-04] MEDS: metoprolol tartrate 50 mg Tablet 75 MG PO (09:09)
[2021-05-04] MEDS: budesonide 0.5 mg/2 mL Neb INHALATION (09:14)
[2021-05-04] MEDS: ascorbic acid 500 mg Tablet 1000 MG PO ×2 (09:22→15:42)
[2021-05-04] MEDS: heparin drip 25,000 UNIT/500 ML PREMIX 16.99 UNIT IV (10:06)
[2021-05-04 10:25] LABS: ABG PCO2 32.9 mmHg (35-45); ABG PH Result 7.41 (7.35-7.45); Alveolar-Arterial Oxygen Gradi 77.3 mmHg (5-10); Arterial Blood Gas Hematocrit 51.7 % (42-52); Base Excess ABG -2.9 mmol/L (-2.0-2.0); Blood Gas Allen Test Pos; Blood Gas Operator Identificat CAK; Blood Gas Sample Site Radial, left; Blood Gas Sample Type Arterial; Carboxyhemoglobin 0.5 %THgb (0.4-20.1); HCO3 ABG 20.7 mmol/L (22-26); HGB O2 Sat 93.3 % (95-100); Ionized Calcium Level - ABG 1.2 mmol/L (1.1-1.4); Methemoglobin 0.9 % (0.4-1.5); Oxygen Device BIPAP; Oxygen Saturation ABG 94.6; PO2 ABG 74.4 mmHg (80.0-100.0); Potassium Level - ABG 4.3 mmol/L (3.5-5.0); Total Hemoglobin 16.9 g/dL (14-18)
[2021-05-04] MEDS: FUROsemide 10 mg/mL SDV 4mL 40 MG IVP (10:55)
[2021-05-04 11:17] LABS: Glucose Point of Care 114 mg/dL (70-110)
[2021-05-04] MEDS: vancomycin 1,500 MG/300 ML PIGGYBACK 200 MG IV (11:23)
[2021-05-04 12:18] LABS: Partial Thromboplastin Time 43.3 SECONDS (23.9-36.7)
[2021-05-04] MEDS: remdesivir 100 MG in sodium chloride 0.9% (100 ml) 100 ML IV (15:42)
--- NOTE | 2021-05-04 16:31 | PM.TDS ---
Transfer Summary Providers Date of Admission: 04/26/21 14:25 Date of Discharge: 05/04/21 Attending Provider at Admission: Burton Renae MD Attending Provider at Transfer: Jeremiah Salmon MD Consults: Pulmonology/nba player: Dr. Quarles Primary Care Provider: Leo Smith Anticipated Date of Transfer: Anticipated date of transfer: 05/04/21 Receiving Facility & Provider: Receiving Provider: [Dr. Casillas] Receiving facility: [[facility]] Diagnoses at Discharge Discharge Diagnosis (1) Acute respiratory failure with hypoxia: Status: Acute (2) ARDS (adult respiratory distress syndrome): Status: Acute (3) Pneumonia due to COVID-19 virus: Status: Acute (4) Gout: Status: Acute Qualifiers: Gout site: unspecified site Gout etiology: unspecified cause Chronicity: chronic Presence of tophus: without tophus Qualified Code(s): M1A.9XX0 - Chronic gout, unspecified, without tophus (tophi) (5) Hyperlipidemia: Status: Acute Qualifiers: Hyperlipidemia type: unspecified Qualified Code(s): E78.5 - Hyperlipidemia, unspecified (6) Hypothyroidism: Status: Acute Qualifiers: Hypothyroidism type: unspecified Qualified Code(s): E03.9 - Hypothyroidism, unspecified (7) Hypertension: Status: Acute Qualifiers: Hypertension type: unspecified Qualified Code(s): I10 - Essential (primary) hypertension (8) Acute kidney injury: Status: Acute (9) Pulmonary embolism associated with COVID-19: Status: Acute Reason for Visit Reason for Visit: icu 8, covid Hospital Course Hospital Course Isrrael Tejada is a 60 year old male with past medical history of hypertension, hyperlipidemia, hypothyroidism, gout, obesity transferred from [facility] in [place] for COVID-19 pneumonia. Patient has been ill for approximately 11 days. A Covid test was performed yesterday, and positive and he was confused this morning upon awakening and was directed to the emergency department by his . Received dexamethasone 8 mg IV at outside hospital and he was transferred. Upon arrival pt has low grade temp 99.8 F, Tachycardic and tachypneic, saturating 92% on BIPAP 18/8 90% FIO2. Pro BNP 816; procalcitonin 0.59 , flu negative, blood cultures sent , chest x ray showed Bilateral pulmonary opacities consistent with acute pneumonia. ABG at outside hospital demonstrated a pH of 7.419, PCO2 of 28, PO2 of 45 on a 15 L nonrebreather. EKG at outside hospital demonstrated sinus tachycardia with a rate of approximately 110, left axis deviation, no significant ST elevation or depression. WBC 11.1, hemoglobin 15.6, platelet count 283; INR normal; PTT 36.6; CRP elevated at 185; D-dimer slightly elevated at 0.83 Sodium was 135, potassium 3.6, chloride 96, bicarb 17, BUN 24, creatinine 1.6, glucose 179; LFTs within normal limits with the exception of AST of 76. ALT and bilirubin are normal. Troponin is 23 with a 2-hour troponin of 24; Chest x-ray at outside institution demonstrated patchy bilateral atelectasis versus infiltrate. Patient was admitted to the ICU for management of severe ARDS from COVID-19 pneumonia. He was started with treatment with extended course of remdesivir, dexamethasone. Patient was also given 2 doses of the Actemra. Admission patient was in MARC which was treated with IV fluids. Patient hospital stay was otherwise unremarkable other than worsening ARDS. CTA was done which showed pulmonary emboli for which she was transitioned from full dose Lovenox to IV heparin drip. Patient has been requiring 100% FiO2 BiPAP?high flow for last 5 days. During her hospitalization patient's hemodynamics remained stable. Sputum culture blood culture remained negative. Repeat procalcitonin remain negative. Because patient was requiring high oxygen supplementation was started on broad-spectrum antibiotics and Diflucan for oral thrush. Patient has received multiple episodes of diuretics to keep him net negative because of ongoing ARDS. Given nonimproving ARDS even after maximal supplemental oxygen therapy/medical therapy for COVID-19 pneumonia further transfer was sought to [facility] for possible ECMO/[place]. Patient's care was discussed with nba player as [facility] who agreed that patient might be a good candidate for ECMO. Prior to transfer patient was intubated and central and arterial lines were placed. Patient has been transferred for higher care through air transport. Physical Exam Narrative: EXAM NARRATIVE: General: No acute distress, AO x3 on heated high flow, tired appearing HEENT: PERRLA, pupils bilaterally equal and reactive Chest: Normal vesicular breath sounds, bilateral diffuse crackles present. equal good air entry bilaterally CVS: S1-S2 regular, no murmurs, no tachycardia, no gallops, no rubs Abdomen: Soft, nontender, no organomegaly, bowel sounds present Neuro: No focal deficits, no facial deformity, AO x3, power 5/5 in all limbs Urinary Catheter Management^: Cristina: Cath Placed During This Visit: yes, but has since been removed by the nurse Reason for Continuing Indwelling Catheter: Accurate Measurement of Urinary Output in Critically Ill Patients Urinary Catheter Date of Insertion: 05/02/21 Urinary Catheter Time of Insertion: 21:18 Date Urinary Catheter Removed: 05/02/21 Time Urinary Catheter Discontinued: 21:17 TS Data Data Completed and Pending: Completed Studies During Hospitalization Category Date Time Status CT angio chest PE protcl [id number] Rout ine Cat Scan 05/01/21 07:10 Completed XR chest 1V iron ble [id number] Q48H Exams 05/02/21 06:00 Completed XR chest 1V iron ble [id number] Q48H Exams 05/04/21 06:00 Completed XR chest 1V iron ble [id number] Routine Exams 04/26/21 14:44 Completed XR chest 1V iron ble [id number] Routine Exams 05/01/21 07:00 Completed CV echo complete* [id number] Routine Ultrasound 05/01/21 08:19 [place] [id number] Routin e Ultrasound 04/28/21 07:33 Completed Pending at discharge Category Date Time Status XR chest 1V iron ble [id number] Q48H Exams 05/06/21 06:00 Ordered Blood Culture Sta t Lab 05/03/21 21:51 Results C Reactive Protei n AM LABS Lab 05/05/21 04:00 Ordered C Reactive Protei n AM LABS Lab 05/06/21 04:00 Ordered Complete Blood Co unt w/Auto AM LABS Lab 05/05/21 04:00 Ordered Comprehensive Met abolic Panel AM LA BS Lab 05/05/21 04:00 Ordered Creatine Phosphok inase AM LABS Lab 05/05/21 04:00 Ordered Creatine Phosphok inase AM LABS Lab 05/06/21 04:00 Ordered D Dimer AM LABS Lab 05/05/21 04:00 Ordered D Dimer AM LABS Lab 05/06/21 04:00 Ordered Ferritin AM LABS Lab 05/05/21 04:00 Ordered Ferritin AM LABS Lab 05/06/21 04:00 Ordered Fibrinogen AM LAB S Lab 05/05/21 04:00 Ordered Fibrinogen AM LAB S Lab 05/06/21 04:00 Ordered Lactate Dehydroge nase AM LABS Lab 05/05/21 04:00 Ordered Lactate Dehydroge nase AM LABS Lab 05/06/21 04:00 Ordered NT Pro B Type Meeta riuretic Pept AM L ABS Lab 05/05/21 04:00 Ordered NT Pro B Type Meeta riuretic Pept AM L ABS Lab 05/06/21 04:00 Ordered PTT [Partial Thro mboplastin Time] T imed Lab 05/04/21 17:00 Ordered Platelet Count Q2 D Lab 05/06/21 04:00 Ordered Sputum Culture an d Gram Stain Routi ne Lab 04/27/21 10:32 Uncollected Sputum Culture an d Gram Stain Routi ne Lab 05/03/21 21:51 Uncollected Sputum Culture an d Gram Stain Stat Lab 05/03/21 10:49 Uncollected Urine Culture Rou arsenio Lab 05/03/21 22:45 Received Labs from last 24 hours 05/04/21 05/04/21 05/04/21 11:43 11:04 10:14 WBC RBC Hgb Hct MCV MCH MCHC RDW Plt Count MPV Neut % (Auto) Lymph % (Auto) [place] % (Auto) Eos % (Auto) Baso % (Auto) Neut # (Auto) Lymph # (Auto) [place] # (Auto) Eos # (Auto) Baso # (Auto) Nucleated RBC % (a uto) Nucleated RBCs # APTT 43.3 H Fibrinogen D-Dimer Specimen Type Arterial Sample Site Radial, left ABG pH 7.41 ABG pCO2 32.9 L ABG pO2 74.4 L ABG HCO3 20.7 L ABG O2 Saturation 94.6 ABG Base Excess -2.9 L Cliff Test Pos A-a O2 Gradient 77.3 H Hematocrit 51.7 Hgb O2 Saturation 93.3 L Carboxyhemoglobin 0.5 Methemoglobin 0.9 Total Hemoglobin 16.9 Ionized Calcium 1.2 O2 Delivery Device Bipap FiO2 100.0 Digital Computer Systems Analyst ID Cak Sodium 137.0 Potassium 4.3 Chloride Carbon Dioxide Anion Gap BUN Creatinine GFR Calculation Glucose 101.0 POC Glucose 114 H Calculated Osmolal ity Calcium Ferritin Total Bilirubin AST ALT Alkaline Phosphata se Lactate Dehydrogen ase Creatine Kinase C-Reactive Protein NT-Pro-B Natriuret Pep Total Protein Albumin Globulin 05/04/21 05/04/21 05/04/21 07:16 04:50 04:50 WBC 14.8 H RBC 5.42 H Hgb 15.6 Hct 47.6 MCV 87.8 MCH 28.8 MCHC 32.8 RDW 13.1 Plt Count 236 MPV 10.3 Neut % (Auto) 82.2 Lymph % (Auto) 8.4 [place] % (Auto) 6.8 Eos % (Auto) 0.9 Baso % (Auto) 0.3 Neut # (Auto) 12.19 H Lymph # (Auto) 1.2 [place] # (Auto) 1.0 H Eos # (Auto) 0.1 Baso # (Auto) 0.0 Nucleated RBC % (a uto) 0 Nucleated RBCs # 0.0 APTT Fibrinogen D-Dimer Specimen Type Sample Site ABG pH ABG pCO2 ABG pO2 ABG HCO3 ABG O2 Saturation ABG Base Excess Cliff Test A-a O2 Gradient Hematocrit Hgb O2 Saturation Carboxyhemoglobin Methemoglobin Total Hemoglobin Ionized Calcium O2 Delivery Device FiO2 Digital Computer Systems Analyst ID Sodium 137 Potassium 5.1 Chloride 104 Carbon Dioxide 24 Anion Gap 14.1 BUN 31 H Creatinine 1.1 GFR Calculation 68.5 L Glucose 102 POC Glucose 94 Calculated Osmolal ity 291 Calcium 7.8 L Ferritin Total Bilirubin 0.9 AST 51 H ALT 60 H Alkaline Phosphata se 120 Lactate Dehydrogen ase Creatine Kinase C-Reactive Protein NT-Pro-B Natriuret Pep Total Protein 5.4 L Albumin 2.8 L Globulin 2.6 05/04/21 05/04/21 05/03/21 04:50 04:50 22:08 WBC RBC Hgb Hct MCV MCH MCHC RDW Plt Count MPV Neut % (Auto) Lymph % (Auto) [place] % (Auto) Eos % (Auto) Baso % (Auto) Neut # (Auto) Lymph # (Auto) [place] # (Auto) Eos # (Auto) Baso # (Auto) Nucleated RBC % (a uto) Nucleated RBCs # APTT 45.9 H 56.4 H Fibrinogen 270 D-Dimer 3.12 H Specimen Type Sample Site ABG pH ABG pCO2 ABG pO2 ABG HCO3 ABG O2 Saturation ABG Base Excess Cliff Test A-a O2 Gradient Hematocrit Hgb O2 Saturation Carboxyhemoglobin Methemoglobin Total Hemoglobin Ionized Calcium O2 Delivery Device FiO2 Digital Computer Systems Analyst ID Sodium Potassium Chloride Carbon Dioxide Anion Gap BUN Creatinine GFR Calculation Glucose POC Glucose Calculated Osmolal ity Calcium Ferritin 1810 H Total Bilirubin AST ALT Alkaline Phosphata se Lactate Dehydrogen ase 901 H Creatine Kinase 262 C-Reactive Protein 4.2 NT-Pro-B Natriuret Pep 94 Total Protein Albumin Globulin 05/03/21 05/03/21 05/03/21 21:10 17:27 15:44 WBC RBC Hgb Hct MCV MCH MCHC RDW Plt Count MPV Neut % (Auto) Lymph % (Auto) [place] % (Auto) Eos % (Auto) Baso % (Auto) Neut # (Auto) Lymph # (Auto) [place] # (Auto) Eos # (Auto) Baso # (Auto) Nucleated RBC % (a uto) Nucleated RBCs # APTT 85.1 H Fibrinogen D-Dimer Specimen Type Sample Site ABG pH ABG pCO2 ABG pO2 ABG HCO3 ABG O2 Saturation ABG Base Excess Cliff Test A-a O2 Gradient Hematocrit Hgb O2 Saturation Carboxyhemoglobin Methemoglobin Total Hemoglobin Ionized Calcium O2 Delivery Device FiO2 Digital Computer Systems Analyst ID Sodium Potassium Chloride Carbon Dioxide Anion Gap BUN Creatinine GFR Calculation Glucose POC Glucose 114 H 231 H Calculated Osmolal ity Calcium Ferritin Total Bilirubin AST ALT Alkaline Phosphata se Lactate Dehydrogen ase Creatine Kinase C-Reactive Protein NT-Pro-B Natriuret Pep Total Protein Albumin Globulin Addt'l Data from Hospital Stay: Laboratory Results WBC 14.8 10^3/uL (4.0 -10.0) H 05/04/21 04:50 RBC 5.42 10^6/uL (4.1 -5.3) H 05/04/21 04:50 Hgb 15.6 g/dL (11.7-1 6.6) 05/04/21 04:50 Hct 47.6 % (42.0-52.0 ) 05/04/21 04:50 MCV 87.8 fL (80-94) 05/04/21 04:50 MCH 28.8 pg (28.0-34. 0) 05/04/21 04:50 MCHC 32.8 g/dL (30.0-3 6.0) 05/04/21 04:50 RDW 13.1 % (12.1-15.1 ) 05/04/21 04:50 Plt Count 236 10^3/cmm (130 -400) 05/04/21 04:50 MPV 10.3 fL (7.4-10.4 ) 05/04/21 04:50 Neut % (Auto) 82.2 % 05/04/21 04:50 Lymph % (Auto) 8.4 % 05/04/21 04:50 [place] % (Auto) 6.8 % 05/04/21 04:50 Eos % (Auto) 0.9 % 05/04/21 04:50 Baso % (Auto) 0.3 % 05/04/21 04:50 Neut # (Auto) 12.19 10^3/uL (1. 8-7.7) H 05/04/21 04:50 Lymph # (Auto) 1.2 10^3/uL (0.8- 4.8) 05/04/21 04:50 [place] # (Auto) 1.0 10^3/uL (0.2- 0.9) H 05/04/21 04:50 Eos # (Auto) 0.1 10^3/uL (0.0- 0.8) 05/04/21 04:50 Baso # (Auto) 0.0 10^3/uL (0.0- 0.1) 05/04/21 04:50 Nucleated RBC % (a uto) 0 % 05/04/21 04:50 Nucleated RBCs # 0.0 /100WBC 05/04/21 04:50 APTT 43.3 SECONDS (23. 9-36.7) H 05/04/21 11:43 Fibrinogen 270 mg/dL (174-49 8) 05/04/21 04:50 D-Dimer 3.12 ug/mIFEU (0- 0.59) H 05/04/21 04:50 Specimen Type Arterial 05/04/21 10:14 Sample Site Radial, left 05/04/21 10:14 ABG pH 7.41 (7.35-7.45) 05/04/21 10:14 ABG pCO2 32.9 mmHg (35-45) L 05/04/21 10:14 ABG pO2 74.4 mmHg (80.0-1 00.0) L 05/04/21 10:14 ABG HCO3 20.7 mmol/L (22-2 6) L 05/04/21 10:14 ABG O2 Saturation 94.6 05/04/21 10:14 ABG Base Excess -2.9 mmol/L (-2.0 -2.0) L 05/04/21 10:14 Cliff Test Pos 05/04/21 10:14 A-a O2 Gradient 77.3 mmHg (5-10) H 05/04/21 10:14 Hematocrit 51.7 % (42-52) 05/04/21 10:14 Hgb O2 Saturation 93.3 % (95-100) L 05/04/21 10:14 Carboxyhemoglobin 0.5 %THgb (0.4-20 .1) 05/04/21 10:14 Methemoglobin 0.9 % (0.4-1.5) 05/04/21 10:14 Total Hemoglobin 16.9 g/dL (14-18) 05/04/21 10:14 Sodium 137.0 mmol/L (131 -143) 05/04/21 10:14 Potassium 4.3 mmol/L (3.5-5 .0) 05/04/21 10:14 Glucose 101.0 mg/dL (70-1 15) 05/04/21 10:14 Ionized Calcium 1.2 mmol/L (1.1-1 .4) 05/04/21 10:14 O2 Delivery Device Bipap 05/04/21 10:14 FiO2 100.0 % 05/04/21 10:14 Digital Computer Systems Analyst ID Cak 05/04/21 10:14 Sodium 137 mmol/L (136-1 45) 05/04/21 04:50 Potassium 5.1 mmol/L (3.5-5 .1) 05/04/21 04:50 Chloride 104 mmol/L (98-10 7) 05/04/21 04:50 Carbon Dioxide 24 mmol/L (22-29) 05/04/21 04:50 Anion Gap 14.1 (5-19) 05/04/21 04:50 BUN 31 mg/dL (6-20) H 05/04/21 04:50 Creatinine 1.1 mg/dL (0.7-1. 2) 05/04/21 04:50 GFR Calculation 68.5 mL/min (90-1 30) L 05/04/21 04:50 Glucose 102 mg/dL (65-115 ) 05/04/21 04:50 POC Glucose 114 mg/dL (70-110 ) H 05/04/21 11:04 Estimat Average Gl ucose 154 05/02/21 03:26 Hemoglobin A1c 7.0 % (4.0-6.0) H 05/02/21 03:26 Calculated Osmolal ity 291 mOsm/kg (285- 295) 05/04/21 04:50 Calcium 7.8 mg/dL (8.5-10 .5) L 05/04/21 04:50 Magnesium 2.8 mg/dL (1.7-2. 3) H 04/28/21 04:23 Iron 103 ug/dL (59-158 ) 05/01/21 06:33 TIBC 219 mcg/dl 05/01/21 06:33 % Saturation 47.0 % (20-50) 05/01/21 06:33 Unsat Iron Binding 116 ug/dL (112-34 7) 05/01/21 06:33 Ferritin 1810 ng/mL (30-40 0) H 05/04/21 04:50 Total Bilirubin 0.9 mg/dL (0.15-1 .2) 05/04/21 04:50 AST 51 U/L (0-40) H 05/04/21 04:50 ALT 60 U/L (0-41) H 05/04/21 04:50 Alkaline Phosphata se 120 IU/L (40-130) 05/04/21 04:50 Lactate Dehydrogen ase 901 U/L (135-225) H 05/04/21 04:50 Creatine Kinase 262 U/L (39-308) 05/04/21 04:50 CK-MB (CK-2) 4.9 ng/mL (0-10.4 ) 05/03/21 04:40 CK-MB (CK-2) Rel I ndex % (0.0-5.3) 05/03/21 04:40 C-Reactive Protein 4.2 mg/L (0.0-4.9 ) 05/04/21 04:50 NT-Pro-B Natriuret Pep 94 pg/mL (0-125) 05/04/21 04:50 Total Protein 5.4 g/dL (6.6-8.7 ) L 05/04/21 04:50 Albumin 2.8 g/dL (3.5-5.2 ) L 05/04/21 04:50 Globulin 2.6 g/dL (1.3-4.6 ) 05/04/21 04:50 Procalcitonin 0.13 ng/mL (0-0.5 ) 05/03/21 04:40 TSH 1.25 uIU/mL (0.27 -4.20) 04/26/21 16:50 Influenza Type A A g Negative (Negati ve) 04/26/21 17:00 Influenza Type B A g Negative (Negati ve) 04/26/21 17:00 Impressions Chest CTA 05/01/21 07:10 IMPRESSION: 1. Proximal main pulmonary arteries are normal. Poor filling of the right upper lobe pulmonary artery suspicious for pulmonary embolus. Distal subsegmental arteries not well evaluated due to motion artifact. 2. Diffuse hazy bilateral groundglass pulmonary infiltrates throughout both lungs compatible with COVID 19 pneumonia. 3. No focal consolidation or pleural fluid. 4. Cardiomegaly. Discussed with Burton Renae MD at 05/01/2021 11:37 AM. Message left for Dr. Salmon at 05/01/2021 11:39 AM Chest X-Ray 05/04/21 06:00 Impression: 1. Increase in bibasilar opacities which may indicate worsening pneumonia. 2. Cardiomegaly. Microbiology 05/04/21 04:50 Blood Blood Culture - Preliminary SPECIMEN COLLECTED 05/04/21 04:52 Blood Blood Culture - Preliminary SPECIMEN COLLECTED 05/01/21 11:00 Urine Catheterized Legionella Urinary Antigen - Final 05/01/21 11:00 Urine Kidney Bacterial Antigens - Final 05/01/21 12:10 Nose MRSA Culture - Final 04/26/21 16:45 Blood Blood Culture - Final NO GROWTH AFTER 5 DAYS 04/26/21 16:45 Blood Blood Culture - Final NO GROWTH AFTER 5 DAYS 04/26/21 00:00 Urine Catheterized Urine Culture - Final 04/26/21 17:00 Nose MRSA Culture - Final 04/26/21 00:00 Urine,Clean Catch Bacterial Antigens - Final Vitals: Last Vital Signs Temp 98.4 F 05/04/21 16:00 Pulse 91 05/04/21 16:00 Resp 24 H 05/04/21 16:00 BP 103/59 05/04/21 16:00 Pulse Ox 92 05/04/21 16:00 TS Medications Medications Home Medications albuterol sulfate 2 puff INHALATION Q4H PRN 04/27/21 [History Confirmed 04/27/21] allopurinol 100 mg PO QAM 04/27/21 [History Confirmed 04/27/21] amlodipine 10 mg PO QAM 04/27/21 [History Confirmed 04/27/21] aspirin [Aspir-81] 81 mg PO QAM 04/27/21 [History Confirmed 04/27/21] atorvastatin 20 mg PO QAM 04/27/21 [History Confirmed 04/27/21] azithromycin See Rx Instructions .ROUTE .COMPLEX 04/27/21 [History Confirmed 04/27/21] benzonatate 100 mg PO TID 04/27/21 [History Confirmed 04/27/21] dexamethasone 6 mg PO DAILY 04/27/21 [History Confirmed 04/27/21] levothyroxine [Euthyrox] 50 mcg PO QAM 04/27/21 [History Confirmed 04/27/21] lisinopril 20 mg PO QAM 04/27/21 [History Confirmed 04/27/21] potassium chloride 10 meq PO QAM 04/27/21 [History Confirmed 04/27/21] Active Medications Acetaminophen (Acetaminophen 325 Mg Tablet) 650 mg PO Q6H PRN PRN Reason: MILD PAIN Last Admin: 04/30/21 12:20 Dose: 650 mg Documented by: Albuterol Sulfate (Albuterol 2.5 Mg/0.5 Ml Neb) 2.5 mg INHALATION Q4H.RESPIRATORY PRN PRN Reason: SHORTNESS OF BREATH Albuterol/Ipratropium (Ipratropium-Albuterol 3 Ml Neb) 3 ml INHALATION Q4H.RESPIRATORY [facility] Last Admin: 05/04/21 15:42 Dose: 3 ml Documented by: Allopurinol (Allopurinol 100 Mg Tablet) 100 mg PO DAILY [facility] Last Admin: 05/04/21 09:07 Dose: 100 mg Documented by: Ascorbic Acid (Ascorbic Acid 500 Mg Tablet) 1,000 mg PO BID [facility] Last Admin: 05/04/21 15:42 Dose: 1,000 mg Documented by: Aspirin (Aspirin 81 Mg Ec Tablet) 81 mg PO QAM [facility] Last Admin: 05/04/21 05:41 Dose: 81 mg Documented by: Atorvastatin Calcium (Atorvastatin 40 Mg Tablet) 20 mg PO BEDTIME [facility] Last Admin: 04/30/21 19:35 Dose: 20 mg Documented by: Azithromycin (Azithromycin 250 Mg Tablet) 500 mg PO Q24H [facility] Last Admin: 05/04/21 09:07 Dose: 500 mg Documented by: Benzonatate (Benzonatate 100 Mg Capsule) 100 mg PO TID [facility] Last Admin: 05/04/21 15:42 Dose: 100 mg Documented by: Budesonide (Budesonide 0.5 Mg/2 Ml Neb) 0.5 mg INHALATION BID.RESPIRATORY [facility] Last Admin: 05/04/21 09:14 Dose: 0.5 mg Documented by: Citalopram Hydrobromide (Citalopram 20 Mg Tablet) 20 mg PO DAILY [facility] Last Admin: 05/04/21 09:07 Dose: 20 mg Documented by: Dexamethasone (Dexamethasone 4 Mg/Ml Inj) 6 mg IVP Q24H [facility] Last Admin: 05/04/21 09:07 Dose: 6 mg Documented by: Dextrose (Dextrose 50% Syringe 50 Ml) 25 ml IVP ONCE PRN; Protocol PRN Reason: hypoglycemia protocol Dextrose (Dextrose 50% Syringe 50 Ml) 50 ml IVP PRN PRN; Protocol PRN Reason: hypoglycemia protocol Ferrous Gluconate (Ferrous Gluconate 324 Mg Tablet) 324 mg PO BIDWM [facility] Last Admin: 05/04/21 15:44 Dose: 324 mg Documented by: Fluconazole (Fluconazole 100 Mg Tablet) 100 mg PO DAILY [facility] Last Admin: 05/04/21 09:07 Dose: 100 mg Documented by: Glucagon (Glucagon 1 Mg/Ml Inj 1 Ml) 1 mg IM ONCE PRN; Protocol PRN Reason: Adult Acute Hypoglycemia Prot. Heparin Sodium (Beef Lung) (Heparin 5,000 Unit/Ml Inj 1 Ml) 0 unit IV PRN PRN; Protocol PRN Reason: Heparin weight-base protocol Dexmedetomidine HCl 400 mcg/ (Sodium Chloride) 104 mls @ 0 mls/hr IV .Q0M [facility]; Protocol Last Admin: 05/04/21 10:07 Dose: 0.3 mcg/kg/hr, 9.98 mls/hr Documented by: Dextrose (D5w) 500 mls @ 100 mls/hr IV ONCE PRN; Protocol PRN Reason: Adult Acute Hypoglycemia Prot Remdesivir 100 mg/ Sodium (Chloride) 100 mls @ 100 mls/hr IV Q24H [facility] Stop: 05/05/21 16:59 Last Admin: 05/04/21 15:42 Dose: 100 mls/hr Documented by: Heparin Sodium/Sodium Chloride (Heparin Drip) 25,000 unit in 500 mls @ 0 mls/hr IV .Q0M [facility]; Protocol Last Titration: 05/04/21 16:30 Dose: 0 unit/kg/hr, 0 mls/hr Documented by: Imipenem/Cilastatin Sodium 500 (mg/ Sodium Chloride) 100 mls @ 200 mls/hr IV Q6H [facility]; Protocol Last Infusion: 05/04/21 11:40 Dose: Infused Documented by: Vancomycin/PEG/NADA/Lysine/Water (Vancocin) 1,500 mg in 300 mls @ 200 mls/hr IV Q12H [facility] Last Infusion: 05/04/21 13:45 Dose: Infused Documented by: Propofol (Diprivan) 1,000 mg in 100 mls @ 0 mls/hr IV .Q0M [facility]; Protocol Norepinephrine Bitartrate 4 mg (/ Dextrose) 254 mls @ 0 mls/hr IV .Q0M [facility]; Protocol Fentanyl 1,000 mcg/ Sodium (Chloride) 100 mls @ 0 mls/hr IV .Q0M [facility]; Protocol Insulin Aspart (Insulin Aspart 100 Unit/1 Ml) 0 unit SUBCUT WM&BEDTIME [facility]; Protocol Last Admin: 05/04/21 11:22 Dose: Not Given Documented by: Lactulose (Lactulose Oral Liq 20 Gm/30 Ml Udc) 15 gm PO BID PRN PRN Reason: CONSTIPATION Levothyroxine Sodium (Levothyroxine 50 Mcg Tablet) 50 mcg PO QAM [facility] Last Admin: 05/04/21 05:41 Dose: 50 mcg Documented by: Metoprolol Tartrate (Metoprolol Tartrate 50 Mg Tablet) 75 mg PO BID@0900,2100 [facility] Last Admin: 05/04/21 09:09 Dose: 75 mg Documented by: Ondansetron HCl (Ondansetron 2 Mg/Ml Sdv 2 Ml) 4 mg IVP Q6H PRN PRN Reason: NAUSEA AND VOMITING Last Admin: 04/30/21 00:50 Dose: 4 mg Documented by: Pantoprazole Sodium (Pantoprazole Dr 40 Mg Tablet) 40 mg PO DAILY [facility] Last Admin: 05/04/21 09:07 Dose: 40 mg Documented by: Zinc Gluconate (Zinc Gluconate 50 Mg Tablet) 50 mg PO DAILY [facility] Last Admin: 05/04/21 09:07 Dose: 50 mg Documented by: Discharge Plan Discharge Patient Disposition: Home Condition: Stable Prescriptions: No Action atorvastatin 20 mg tablet 20 mg PO QAM RF: 0 azithromycin 250 mg tablet See Rx Instructions .ROUTE .COMPLEX RF: 0 lisinopril 20 mg tablet 20 mg PO QAM RF: 0 dexamethasone 6 mg tablet 6 mg PO DAILY RF: 0 allopurinol 100 mg tablet 100 mg PO QAM RF: 0 Aspir-81 81 mg Tablet,Delayed Release (Dr/Ec) 81 mg PO QAM RF: 0 amlodipine 10 mg tablet 10 mg PO QAM RF: 0 benzonatate 100 mg capsule 100 mg PO TID RF: 0 Euthyrox 50 mcg tablet 50 mcg PO QAM RF: 0 albuterol sulfate 90 mcg/actuation HFA aerosol inhaler 2 puff INHALATION Q4H PRN (Reason: Shortness Of Breath) RF: 0 potassium chloride 10 mEq tablet,ER particles/crystals 10 meq PO QAM RF: 0 Patient Instructions: Opioid Safety Transfer Attestations Time Spent in Transfer Care*: greater than 30 min Specific Discharge Activities: Specific discharge activities: educating patient, educating and/or supporting family/caregiver, discussing with pcp/other providers, discussing with case management social worker/social workers/dc planners, documenting/other paperwork and evaluating patient/reviewing data Status at Transfer: Cognitive status at transfer: cognitively intact, Behavioral status at transfer: cooperative, Functional status at transfer: bed bound Overall status at transfer: patient is not back to baseline Quality Metrics Clinical Quality Measures: During this hospital stay, did patient experience: None Coding Level of Care Code Acute [employer] Operator for [facility] Diagnoses Acute respiratory failure with hypoxia J96.01 ARDS (adult respiratory distress syndrome) J80 Pneumonia due to COVID-19 virus U07.1; J12.82 Gout [id number] Gout site: unspecified site Gout etiology: unspecified cause Chronicity: chronic Presence of tophus: without tophus Hyperlipidemia E78.5 Hyperlipidemia type: unspecified Hypothyroidism E03.9 Hypothyroidism type: unspecified Hypertension I10 Hypertension type: unspecified Acute kidney injury N17.9 Pulmonary embolism associated with COVID-19 U07.1; I26.99
[2021-05-04] MEDS: rocuronium 10 mg/mL INJ 5mL IV (17:09)
--- NOTE | 2021-05-04 17:17 | XRR_ITS ---
PROCEDURE INFORMATION: Exam: XR Chest Exam date and time: 05/04/2021 5:17 PM Age: 60 years old Clinical indication: Device placement; Ett placement (vent status); Additional info: Ettube TECHNIQUE: Imaging protocol: XR of the chest. Views: 1 view. COMPARISON: CR XR chest 1V portable [id number] 05/04/2021 6:20 AM FINDINGS: Tubes, catheters and devices: Endotracheal tube noted 2 cm above the steve. Lungs: Perihilar and bibasilar consolidations. Pleural spaces: Unremarkable. No pleural effusion. No pneumothorax. Heart/Mediastinum: Unremarkable. No cardiomegaly. Bones/joints: Unremarkable. XR/XR chest 1V portable [id number] IMPRESSION: 1. Endotracheal tube in proper position above the steve. 2. Perihilar and bibasilar consolidations.
--- NOTE | 2021-05-04 17:27 | PM.CCN ---
Critical Care Event Note Critical Care Event The high probability of a clinically significant, sudden or life threatening deterioration of the patient's [] system(s) required my full and direct attention, intervention and personal management. The critical care time is as shown. This time is in addition to time spent performing any reported procedures but includes the following: [x] Data and vital sign review and interpretation [x] Patient assessment, examination and intervention [x] Documentation [x] Medication orders and management Critical Care Time Critical Care Time: Code activated: No Critical Care Time (min): 15 Procedures Intubation Time out performed: No Sedative: other (Hospitalist had already sedated the patient with etomidate.) Paralytic: other (I believe the patient was also given vecuronium prior to my arrival.) Laryngoscope: fiber optic video scope ET tube size: 7.5 ET tube uncuffed: Yes Tube secured depth (cm): 24 Tube secured location: teeth Tube placement confirmation: visualized tube passing through cords, equal breath sounds bilaterally, no breath sounds over epigastrium, confirmation by capnometry and color change noted Patient tolerated procedure: well and no complications Intubation complications: none Additional comments: Hospitalist called ER for emergent intubation and ICU bed 8. Reportedly hospitalist had sedated the patient and was unable to intubate the patient. There appeared to be blood from the left nare prior to my arrival to the ICU. Posterior pharynx was clear. No evidence of aspiration. Patient reportedly is COVID-19 patient and was being prepared to be flown to another hospital. Patient intubated with glide scope without difficulty. Hospitalist assumed care after intubation. I was called only for intubation and no other intervention. Coding Level of Care Code Acute Customer Operations Intern for Hans Conde
[2021-05-04] MEDS: propofol 1,000 MG/100 ML INJ 13.5 MG IV (17:28)
--- NOTE | 2021-05-04 17:55 | XRR_ITS ---
PROCEDURE INFORMATION: Exam: XR Chest Exam date and time: 05/04/2021 5:55 PM Age: 60 years old Clinical indication: Device placement; Other: Ng and central line placement TECHNIQUE: Imaging protocol: XR of the chest. Views: 1 view. COMPARISON: CR XR chest 1V portable [id number] 05/04/2021 5:34 PM FINDINGS: Tubes, catheters and devices: Endotracheal tube noted 5.5 cm above the steve. Interval placement of an enteric tube with side port within the stomach. Interval placement of a left PICC line which terminates within the distal SVC. Lungs: Perihilar and bibasilar consolidations again noted. Pleural spaces: Possible trace pleural effusions. No pneumothorax. Heart/Mediastinum: Unremarkable. No cardiomegaly. Bones/joints: Unremarkable. XR/XR chest 1V portable [id number] IMPRESSION: 1. Proper positioning of lines and tubes. 2. Similar appearance of perihilar and bibasilar consolidations.
--- NOTE | 2021-05-04 18:02 | PM.ACPR ---
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 [place] precautions applied. Site: Left Internal Jugular Line Catheter: 7 Fr, 20cm, Triple Lumen Sutured at: 20 cm Anesthesia:pt sedated with propofol 50 mg; etomidate 20 mg and paralyzed with rocuronium 100 mg just prior central line placement for intubation Description: Area prepped with chlorhexidine and draped in a universal sterile manner. The vessel anatomy and patency was examined by ultrasound probe which was covered with sterile probe cover. The needle was inserted into the vessel under ultrasound guidance, after venous blood aspirated the guidewire was inserted through the needle and kept in situ while the needle was removed. Placement of guidewire in the vein and in relation to the adjacent artery was verified by ultrasound. Catheter was then advanced over the guidewire after dilation and guidewire successfully removed.The catheter was sutured to the skin and sterile dressing with chlorhexidine patch placed. Number of attempts: 1 Dilator applied: 1, number of Dilations: 1 Placement Verified by: Blood draw from all ports and Ultrasound exam and Chest Xray EBL: 10-15 cc Complications: None Ultrasound guidance used: yes Images saved: yes Acute Procedures Epistaxis Control: Time out performed: Yes
[2021-05-04] MEDS: midazolam 1 mg/mL INJ 2 mL 2 MG IVP (18:15)
--- NOTE | 2021-05-04 18:21 | P.EN_ITS ---
Event Note Event Note: -Patient is accepted for transfer to [place] for possible ECMO for acute hypoxic respiratory failure - patient was intubated at around 5 PM and connected to ventilator CMV 500/15/100 percent/PEEP of 12 -Left internal jugular central line placed at around 5:50 PM and tubes and lines confirmed with chest x-rays - Started on fentanyl 125 MCG/hour, propofol 25 mg/hour, Versed 2 mg/per hour for deep sedation and plan is to start paralytic and transfer the patient
[2021-05-04] MEDS: cisatracurium 100 MG in sodium chloride 0.9% 50 ML IV (18:35)
[2021-05-04] MEDS: propofol 10 mg/mL SDV 20 mL 50 MG IVP (19:44)
--- NOTE | 2021-05-04 20:05 | PC.NURSE ---
1600 [facility] called with bed available. Decision made to intubate. Intubation delayed d/t emergency in ER. 1700 Pt educated r/t intubation and future plans for tx. 1705 Prop 50mg given per MD. 1706 Etomidate 20mg IVP given. 1708 Attempt x1 with glidescope for intubation. Unable to pass tube. 1709 Rocuronium 100mg IVP given. Attempt x 2, unsuccessful. Call to anesthesiology for assist. 1720 Fentanyl gtt started at 100 mcg/h per orders. 1728 Propofol gtt started at 20 mcg/kg/min. 1730 #8 ETT 27cm at lip per anesthesia, RT at bedside, O2 sats in 80's. 1745 L IJ CVL placed per MD. 1753 Propofol increased to 30mcg/kg/min 1755 OGT placed, STAT CXR ordered. 1800 CXR verified placement of OGT and CVL, ETT in place. OK given to use line. 1801 precedex increased to 0.7mcg/kg.h 1806 Propofol increased to 40 1810 Fentanyl increased to 125 1812 propofol 20 IVP given per MD push 1815 Versed 2mg IVP given 1822 Versed gtt started at 2mg/h 1830 versed increased to 4mg/h 1832 Fentanyl increased to 150 1840 Biz monitor setup, train of four performed. 4/4 twitches to eyebrow, 3 setting, on 03mcg/kg/min nimbex gtt, nimbex increased to 1 mcg/kg/min. 1845 Versed 2mg IVP per MD order. 1848 Levo increased to 8 mcg/min d/t low MAP. Report given to oncoming nurseHilda. updated as well. Awaiting transport team to [facility].
[2021-05-04] MEDS: propofol 1,000 MG/100 ML INJ 27 MG IV (20:17)
--- NOTE | 2021-05-04 22:38 | PC.NURSE ---
Patient Intubated at 1700, Day RN sedated and paralyzed patient and got everything ready for patient to transfer to [place], called report to ambulance and [place] facility [facility] for room 17. Patient vitals all stable, patient on 100% on vent, unresponsive at this time due to paralytic but was alert and oriented prior to intubation. Patient transferred out of the ICU with [facility] critical care transport at 2100 and patient met with fly crew Mary Ellen in [place] and continued the rest of the journey via flight due to the weather change. Patients updated during all of this, patients took home clothes, phone, nurse college and bag.
--- NOTE | 2021-05-04 22:46 | PC.NURSE ---
Wasted Fentanyl 50.084 with Erika and Versed 89.733 due to patient discharging to another facility
== END 2021-05-04 21:00 | disposition short-term general hospital (02) | DRG 208 ==
PROVIDERS: Hospitalist; Internal Medicine; Internal Medicine Pulmonary Disease; Admitting Provider Internal Medicine; PCP Family Medicine; Visit Provider Student in an Organized Health Care Education/Training Program
DX: U07.1 COVID-19 (principal); I26.99 Other pulmonary embolism without acute cor pulmonale; J12.82 Pneumonia due to coronavirus disease 2019; J96.01 Acute respiratory failure with hypoxia; N17.9 Acute kidney failure, unspecified; B37.0 Candidal stomatitis; M1A.9XX0 Chronic gout, unspecified, without tophus (tophi); E78.5 Hyperlipidemia, unspecified; I10 Essential (primary) hypertension; E03.9 Hypothyroidism, unspecified; E66.9 Obesity, unspecified; Z68.33 Body mass index [BMI] 33.0-33.9, adult; K59.00 Constipation, unspecified; Z79.82 Long term (current) use of aspirin
CPT/HCPCS: 36415; 36416; 36600; 51702; 71045; 71275; 80051; 80053; 82330; 82550; 82553; 82728; 82805; 82962; 83036; 83540; 83550; 83615; 83735; 83880; 84145; 84443; 85025; 85049; 85378; 85384; 85730; 86140; 86403; 87040; 87086; 87449; 87641; 87804; 93306; 93970; 94002; 94640; 94660; 94799; 96372; J0456; J0696; J0743; J1100; J1644; J1650; J1815; J1940; J2250; J2405; J2704; J3010; J3262; J3370; J3490; J7030; J7050; J7626; Q0144; Q9967